=== PATIENT | male | born 1945 | race Caucasian/White ===

== ENCOUNTER → 2016-08-08 | Outpatient (REF) | payer MEDICARE, MEDICAID ==
[~2016-08-08] MED LIST: /MOM400 PO; /RANI15TA PO; ACET50TA PO; ALLO50TA PO; AMLO10TA2 PO; ASPI81TA85 PO; ATEN100T PO; BACT400T PO; BACT800T5 PO; COLA50CA3 PO; CYAN1000 IJ; CYANCRY6 PO; D32000TA PO; GLYB125TA PO; INSULANT SC; INSUNSD SC; LASI80TA PO; LEVO88TA2 PO; LISI5TAB PO; LOPE-3 PO; METF1000 PO; MUPI2OI EXT; MUPI2OI TOP; PRIL20CA PO; TERA5CA PO; ULTR50TA PO; [UNRECOGNIZED DRUG - CODE] EX
[2016-08-08 14:55] LABS: TOTAL PROTEIN 7.6 GM/DL (6.4-8.2)
[2016-08-09 10:37] LABS: ALBUMIN 3.47 GM/DL (3.29-5.55); ALBUMIN % 45.7 % (55.8-66.1); GAMMA GLOBULIN % 27.9 % (11.1-18.8)
== END | disposition home or self-care (01) ==
LOC: M LAB REF 12:39
PROVIDERS: ATTEND Internal Medicine Medical Oncology
DX: D47.2 Monoclonal gammopathy (principal)

== ENCOUNTER → 2017-02-13 | Outpatient (REF) | payer MEDICARE, MEDICAID ==
[~2017-02-13] MED LIST changes: +NYSTOI TOP
[2017-02-13 16:57] LABS: TOTAL PROTEIN 7.8 GM/DL (6.4-8.2)
[2017-02-15 11:00] LABS: ALBUMIN 3.43 GM/DL (3.29-5.55); GAMMA GLOBULIN % 29.5 % (11.1-18.8)
[2017-02-16 00:07] LABS: FREE KAPPA LIGHT CHAINS SERUM 297.2 mg/L (3.3-19.4); FREE LAMBDA LIGHT CHAINS SERUM 49.1 mg/L (5.7-26.3); KAPPA/LAMBDA RATIO SERUM 6.05 (0.26-1.65)
== END ==
LOC: M LAB REF 16:25
PROVIDERS: ATTEND Internal Medicine Medical Oncology
DX: D47.2 Monoclonal gammopathy (principal)

== ENCOUNTER → 2017-08-23 | Outpatient (REF) | payer MEDICARE, MEDICAID ==
[2017-08-23 19:05] LABS: IMMUNOGLOBULIN A 41.2 MG/DL (70-400); IMMUNOGLOBULIN G 654 MG/DL (681-1648); IMMUNOGLOBULIN M 2030 MG/DL (40-230)
== END ==
LOC: M LAB REF 16:36
DX: C88.0 Waldenstrom macroglobulinemia (principal)
CPT/HCPCS: 82784

== ENCOUNTER 2018-03-15 11:34 | Inpatient (IN) | payer MEDICARE, MEDICAID ==
[2018-03-15] MEDS: ASPIRIN 81 MG ENTERIC TAB PO (09:00)
[2018-03-15 12:47] LABS: BASO % 0.3 % (0.0-1.0); EOS # 0.4 10^3/uL (0.0-0.50); EOS % 3.7 % (0.0-3.0); HEMATOCRIT 34.7 % (42.0-52.0); HEMOGLOBIN 10.7 g/dl (13.5-17.5); IMMATURE GRANULOCYTE % 0.6 % (0-3.0); LYMPH # 1.1 10^3/uL (1.5-4.5); MEAN CORPUSCULAR HEMOGLOBIN 27.5 pg (27.0-33.0); MEAN CORPUSCULAR HGB CONC 30.8 g/dl (32.0-36.5); MEAN CORPUSCULAR VOLUME 89.2 fl (80.0-96.0); MONO # 0.9 10^3/uL (0.0-0.8); MONO % 8.3 % (0.0-5.0); NEUTROPHILS # 8.4 10^3/uL (1.8-7.7); NEUTROPHILS % 77.1 % (36.0-66.0); PLATELET COUNT, AUTOMATED 216 10^3/uL (150-450); RED BLOOD COUNT 3.89 10^6/uL (4.30-6.10); RED CELL DISTRIBUTION WIDTH 16.5 % (11.5-14.5); WHITE BLOOD COUNT 10.9 10^3/uL (4.0-10.0)
[2018-03-15 12:57] LABS: INR 1.07
[2018-03-15 13:06] LABS: ERYTHROCYTE SEDIMENTATION RATE 95 mm/hr (0-20)
[2018-03-15 13:09] LABS: ALBUMIN 2.7 GM/DL (3.2-5.2); ALBUMIN/GLOBULIN RATIO 0.55 (1.00-1.93); ALKALINE PHOSPHATASE 75 U/L (45-117); ALT/SGPT 15 U/L (12-78); ANION GAP 3 MEQ/L (8-16); AST/SGOT 13 U/L (7-37); BILIRUBIN,DIRECT < 0.1 MG/DL (0.0-0.2); BILIRUBIN,TOTAL 0.2 MG/DL (0.2-1.0); BLOOD UREA NITROGEN 19 MG/DL (7-18); C REACTIVE PROTEIN QUANTITATIV 5.71 MG/DL (0.00-0.30); CALCIUM LEVEL 8.9 MG/DL (8.8-10.2); CARBON DIOXIDE LEVEL 34 MEQ/L (21-32); CHLORIDE LEVEL 104 MEQ/L (98-107); CREATININE FOR GFR 1.41 MG/DL (0.70-1.30); GLOMERULAR FILTRATION RATE 52.7 (>42); GLUCOSE, FASTING 264 MG/DL (70-100); POTASSIUM SERUM 4.4 MEQ/L (3.5-5.1); SODIUM LEVEL 141 MEQ/L (136-145); TOTAL PROTEIN 7.6 GM/DL (6.4-8.2)
[2018-03-15] MEDS: VANCOMYCIN HCL 1,000 MG, VIAL MATE ADAPTER 1 EACH in D5W 250 ML IV ×2 (14:45→17:02)
[2018-03-15] MEDS: PIPERACILLIN/TAZOBACTAM SOD 3.375 GM in D5W MINI-BAG PLUS 50 ML IV ×2 (14:45→21:15)
[2018-03-15] MEDS ORDERED: GLUCAGON FOR INJ 1 MG VIAL (J1610) SC (16:00)
[2018-03-15] MEDS ORDERED: SENOKOT S TAB PO (16:00)
[2018-03-15] MEDS ORDERED: GLUCOSE 4 GM CHEW TABLET PO (16:00)
[2018-03-15] MEDS ORDERED: DEXTROSE 50% 50 ML SYRINGE IV (16:00)
[2018-03-15] MEDS ORDERED: POLYVINYL ALCOHOL OPHTH SOLN 15 ML(LIQUITEARS) OU (16:00)
[2018-03-15] MEDS: FUROSEMIDE 40 MG/4 ML VIAL (J1940) IV (17:02)
[2018-03-15] MEDS: FOLIC ACID 1 MG TAB PO (17:09)
[2018-03-15] MEDS: ALLOPURINOL 300 MG TAB PO (17:09)
[2018-03-15] MEDS: ATENOLOL 50 MG TAB PO (17:10)
[2018-03-15] MEDS: VITAMIN D 1,000 INTERNATIONAL UNITS TABLET PO (17:10)
[2018-03-15] MEDS: TERAZOSIN 1 MG CAP PO (17:10)
[2018-03-15] MEDS: CYANOCOBALAMIN 500 MCG TAB PO (17:10)
[2018-03-15] MEDS: LISINOPRIL 40 MG TAB PO (17:11)
[2018-03-15] MEDS: amLODIPine 5 MG TAB PO (17:11)
[2018-03-15] MEDS: HumaLOG INSULIN (NovoLOG) PER UNIT SC (17:30)
[2018-03-15] MEDS: HumuLIN N INSULIN (NovoLIN N) PER UNIT SC (18:30)
[2018-03-15] MEDS: LEVEMIR (INSULIN DETEMIR) 1 UNITS/0.01ML SC (21:00)
[2018-03-15] MEDS: NYSTATIN 100,000 UNITS/GM TOPICAL PWD 15 GM TOP (21:00)
[2018-03-15] MEDS: SPIRONOLACTONE 25 MG TAB PO (21:13)
[2018-03-15] MEDS: FAMOTIDINE 20 MG TAB PO (21:13)
[2018-03-15] MEDS: FERROUS SULFATE 325MG TAB PO (21:13)
[2018-03-15] MEDS: POTASSIUM CHLORIDE 10 MEQ SR TABLET PO (21:13)
[2018-03-16] MEDS: PIPERACILLIN/TAZOBACTAM SOD 3.375 GM in D5W MINI-BAG PLUS 50 ML IV ×3 (04:00→19:32)
[2018-03-16] MEDS: LEVOTHYROXINE 100MCG TABLET (0.1MG) PO (07:24)
[2018-03-16] MEDS: VANCOMYCIN HCL 1,000 MG, VIAL MATE ADAPTER 1 EACH in D5W 250 ML IV ×2 (07:25→17:11)
[2018-03-16 07:35] LABS: HEMATOCRIT 33.9 % (42.0-52.0); HEMOGLOBIN 10.5 g/dl (13.5-17.5); MEAN CORPUSCULAR VOLUME 90.4 fl (80.0-96.0); PLATELET COUNT, AUTOMATED 205 10^3/uL (150-450); RED BLOOD COUNT 3.75 10^6/uL (4.30-6.10); RED CELL DISTRIBUTION WIDTH 16.6 % (11.5-14.5); WHITE BLOOD COUNT 11.1 10^3/uL (4.0-10.0)
[2018-03-16 07:50] LABS: ESTIMATED AVERAGE GLUCOSE 180 MG/DL (60-110); HEMOGLOBIN A1c 7.9 %
[2018-03-16 07:57] LABS: ALBUMIN 2.6 GM/DL (3.2-5.2); ALBUMIN/GLOBULIN RATIO 0.53 (1.00-1.93); ALKALINE PHOSPHATASE 69 U/L (45-117); ALT/SGPT 18 U/L (12-78); ANION GAP 4 MEQ/L (8-16); AST/SGOT 38 U/L (7-37); BILIRUBIN,TOTAL 0.3 MG/DL (0.2-1.0); BLOOD UREA NITROGEN 18 MG/DL (7-18); C REACTIVE PROTEIN QUANTITATIV 5.45 MG/DL (0.00-0.30); CALCIUM LEVEL 8.7 MG/DL (8.8-10.2); CARBON DIOXIDE LEVEL 35 MEQ/L (21-32); CHLORIDE LEVEL 104 MEQ/L (98-107); CREATININE FOR GFR 1.49 MG/DL (0.70-1.30); FERRITIN 37 NG/ML (26-388); GLOMERULAR FILTRATION RATE 49.5 (>42); GLUCOSE, FASTING 180 MG/DL (70-100); IRON (FE) 40 UG/DL (65-175); POTASSIUM SERUM 4.7 MEQ/L (3.5-5.1); SODIUM LEVEL 143 MEQ/L (136-145); TOTAL IRON BINDING CAPACITY 286 UG/DL (250-450); TOTAL PROTEIN 7.5 GM/DL (6.4-8.2)
[2018-03-16 08:26] LABS: BEDSIDE GLUCOSE 197 MG/DL (83-110)
[2018-03-16] MEDS: HumaLOG INSULIN (NovoLOG) PER UNIT SC ×3 (08:39→18:15)
[2018-03-16 08:47] LABS: VITAMIN B12 LEVEL 598 PG/ML (247-911)
[2018-03-16 08:48] LABS: FOLATE 16.7 NG/ML (>5.4)
[2018-03-16] MEDS: VITAMIN D 1,000 INTERNATIONAL UNITS TABLET PO (09:00)
[2018-03-16] MEDS: FUROSEMIDE 40 MG/4 ML VIAL (J1940) IV (09:00)
[2018-03-16] MEDS: NYSTATIN 100,000 UNITS/GM TOPICAL PWD 15 GM TOP ×2 (09:27→20:40)
[2018-03-16] MEDS: amLODIPine 5 MG TAB PO (09:28)
[2018-03-16] MEDS: CYANOCOBALAMIN 500 MCG TAB PO (09:28)
[2018-03-16] MEDS: ENOXAPARIN 30 MG/0.3 ML SYR (J1650) SC (09:28)
[2018-03-16] MEDS: LISINOPRIL 40 MG TAB PO (09:29)
[2018-03-16] MEDS: FOLIC ACID 1 MG TAB PO (09:29)
[2018-03-16] MEDS: ATENOLOL 50 MG TAB PO (09:29)
[2018-03-16] MEDS: POTASSIUM CHLORIDE 10 MEQ SR TABLET PO ×2 (09:30→20:39)
[2018-03-16] MEDS: FERROUS SULFATE 325MG TAB PO ×2 (09:30→20:39)
[2018-03-16] MEDS: ASPIRIN 81 MG ENTERIC TAB PO (09:30)
[2018-03-16] MEDS: ALLOPURINOL 300 MG TAB PO (09:30)
[2018-03-16] MEDS: TERAZOSIN 1 MG CAP PO (09:31)
[2018-03-16] MEDS: HumuLIN N INSULIN (NovoLIN N) PER UNIT SC ×3 (10:24→18:14)
[2018-03-16 11:31] LABS: BEDSIDE GLUCOSE 213 MG/DL (83-110)
[2018-03-16 16:34] LABS: BEDSIDE GLUCOSE 119 MG/DL (83-110)
[2018-03-16] MEDS: FUROSEMIDE 100 MG/10 ML VIAL (J1940) IV (16:47)
[2018-03-16 20:35] LABS: BEDSIDE GLUCOSE 236 MG/DL (83-110)
[2018-03-16] MEDS: SPIRONOLACTONE 25 MG TAB PO (20:39)
[2018-03-16] MEDS: FAMOTIDINE 20 MG TAB PO (20:39)
[2018-03-16] MEDS: LEVEMIR (INSULIN DETEMIR) 1 UNITS/0.01ML SC (20:39)
[2018-03-17] MEDS: PIPERACILLIN/TAZOBACTAM SOD 3.375 GM in D5W MINI-BAG PLUS 50 ML IV ×4 (00:49→19:05)
[2018-03-17] MEDS: VANCOMYCIN HCL 1,000 MG, VIAL MATE ADAPTER 1 EACH in D5W 250 ML IV ×2 (04:41→17:19)
[2018-03-17 06:18] LABS: HEMATOCRIT 33.3 % (42.0-52.0); HEMOGLOBIN 10.2 g/dl (13.5-17.5); MEAN CORPUSCULAR HEMOGLOBIN 27.9 pg (27.0-33.0); MEAN CORPUSCULAR HGB CONC 30.6 g/dl (32.0-36.5); PLATELET COUNT, AUTOMATED 124 10^3/uL (150-450); RED BLOOD COUNT 3.66 10^6/uL (4.30-6.10); RED CELL DISTRIBUTION WIDTH 16.8 % (11.5-14.5); WHITE BLOOD COUNT 9.3 10^3/uL (4.0-10.0)
[2018-03-17] MEDS: LEVOTHYROXINE 100MCG TABLET (0.1MG) PO (06:28)
[2018-03-17 06:32] LABS: ALBUMIN 2.3 GM/DL (3.2-5.2); ALBUMIN/GLOBULIN RATIO 0.49 (1.00-1.93); ALKALINE PHOSPHATASE 67 U/L (45-117); ALT/SGPT 15 U/L (12-78); ANION GAP 5 MEQ/L (8-16); AST/SGOT 35 U/L (7-37); BILIRUBIN,TOTAL 0.3 MG/DL (0.2-1.0); BLOOD UREA NITROGEN 20 MG/DL (7-18); CALCIUM LEVEL 8.3 MG/DL (8.8-10.2); CARBON DIOXIDE LEVEL 33 MEQ/L (21-32); CHLORIDE LEVEL 102 MEQ/L (98-107); CREATININE FOR GFR 1.61 MG/DL (0.70-1.30); GLOMERULAR FILTRATION RATE 45.3 (>42); GLUCOSE, FASTING 141 MG/DL (70-100); MAGNESIUM LEVEL 1.9 MG/DL (1.8-2.4); POTASSIUM SERUM 4.4 MEQ/L (3.5-5.1); SODIUM LEVEL 140 MEQ/L (136-145)
[2018-03-17] MEDS: HumuLIN N INSULIN (NovoLIN N) PER UNIT SC ×3 (07:54→17:19)
[2018-03-17] MEDS: HumaLOG INSULIN (NovoLOG) PER UNIT SC ×3 (07:54→17:19)
[2018-03-17] MEDS: ALLOPURINOL 300 MG TAB PO (07:55)
[2018-03-17] MEDS: FUROSEMIDE 100 MG/10 ML VIAL (J1940) IV (07:55)
[2018-03-17] MEDS: ENOXAPARIN 30 MG/0.3 ML SYR (J1650) SC (07:55)
[2018-03-17] MEDS: FERROUS SULFATE 325MG TAB PO ×2 (07:55→20:18)
[2018-03-17] MEDS: ASPIRIN 81 MG ENTERIC TAB PO (07:55)
[2018-03-17] MEDS: TERAZOSIN 1 MG CAP PO (07:56)
[2018-03-17] MEDS: ATENOLOL 50 MG TAB PO (07:56)
[2018-03-17] MEDS: amLODIPine 5 MG TAB PO (07:56)
[2018-03-17] MEDS: CYANOCOBALAMIN 500 MCG TAB PO (07:56)
[2018-03-17] MEDS: FOLIC ACID 1 MG TAB PO (07:56)
[2018-03-17] MEDS: NYSTATIN 100,000 UNITS/GM TOPICAL PWD 15 GM TOP ×2 (07:57→20:19)
[2018-03-17] MEDS: LISINOPRIL 40 MG TAB PO (07:57)
[2018-03-17] MEDS: VITAMIN D 1,000 INTERNATIONAL UNITS TABLET PO (07:57)
[2018-03-17] MEDS: POTASSIUM CHLORIDE 10 MEQ SR TABLET PO ×2 (07:57→20:18)
[2018-03-17 12:05] LABS: BEDSIDE GLUCOSE 148 MG/DL (83-110)
[2018-03-17 16:37] LABS: BEDSIDE GLUCOSE 155 MG/DL (83-110)
[2018-03-17 16:51] LABS: VANCOMYCIN LEVEL TROUGH 17.6 UG/ML (10.0-20.0)
[2018-03-17 20:15] LABS: BEDSIDE GLUCOSE 165 MG/DL (83-110)
[2018-03-17] MEDS: FAMOTIDINE 20 MG TAB PO (20:17)
[2018-03-17] MEDS: SPIRONOLACTONE 25 MG TAB PO (20:17)
[2018-03-17] MEDS: LEVEMIR (INSULIN DETEMIR) 1 UNITS/0.01ML SC (20:19)
[2018-03-18] MEDS: PIPERACILLIN/TAZOBACTAM SOD 3.375 GM in D5W MINI-BAG PLUS 50 ML IV ×4 (00:30→18:04)
[2018-03-18] MEDS: VANCOMYCIN HCL 1,000 MG, VIAL MATE ADAPTER 1 EACH in D5W 250 ML IV (04:48)
[2018-03-18 06:05] LABS: HEMATOCRIT 32.9 % (42.0-52.0); MEAN CORPUSCULAR HEMOGLOBIN 27.5 pg (27.0-33.0); MEAN CORPUSCULAR HGB CONC 30.4 g/dl (32.0-36.5); MEAN CORPUSCULAR VOLUME 90.6 fl (80.0-96.0); PLATELET COUNT, AUTOMATED 212 10^3/uL (150-450); RED BLOOD COUNT 3.63 10^6/uL (4.30-6.10); RED CELL DISTRIBUTION WIDTH 16.3 % (11.5-14.5); WHITE BLOOD COUNT 10.1 10^3/uL (4.0-10.0)
[2018-03-18] MEDS: LEVOTHYROXINE 100MCG TABLET (0.1MG) PO (06:24)
[2018-03-18 06:28] LABS: ALBUMIN 2.3 GM/DL (3.2-5.2); ALBUMIN/GLOBULIN RATIO 0.51 (1.00-1.93); ALKALINE PHOSPHATASE 61 U/L (45-117); ALT/SGPT 15 U/L (12-78); ANION GAP 3 MEQ/L (8-16); AST/SGOT 25 U/L (7-37); BILIRUBIN,TOTAL 0.3 MG/DL (0.2-1.0); BLOOD UREA NITROGEN 24 MG/DL (7-18); CALCIUM LEVEL 8.3 MG/DL (8.8-10.2); CARBON DIOXIDE LEVEL 36 MEQ/L (21-32); CHLORIDE LEVEL 100 MEQ/L (98-107); CREATININE FOR GFR 1.79 MG/DL (0.70-1.30); GLOMERULAR FILTRATION RATE 40.1 (>42); GLUCOSE, FASTING 103 MG/DL (70-100); MAGNESIUM LEVEL 1.7 MG/DL (1.8-2.4); POTASSIUM SERUM 4.5 MEQ/L (3.5-5.1); SODIUM LEVEL 139 MEQ/L (136-145); TOTAL PROTEIN 6.8 GM/DL (6.4-8.2)
[2018-03-18] MEDS: HumuLIN N INSULIN (NovoLIN N) PER UNIT SC ×3 (07:28→18:04)
[2018-03-18] MEDS: HumaLOG INSULIN (NovoLOG) PER UNIT SC ×3 (07:28→18:04)
[2018-03-18] MEDS: ENOXAPARIN 30 MG/0.3 ML SYR (J1650) SC (07:40)
[2018-03-18] MEDS: FERROUS SULFATE 325MG TAB PO ×2 (07:41→20:36)
[2018-03-18] MEDS: FOLIC ACID 1 MG TAB PO (07:41)
[2018-03-18] MEDS: POTASSIUM CHLORIDE 10 MEQ SR TABLET PO ×2 (07:41→20:36)
[2018-03-18] MEDS: LISINOPRIL 40 MG TAB PO (07:42)
[2018-03-18] MEDS: VITAMIN D 1,000 INTERNATIONAL UNITS TABLET PO (07:42)
[2018-03-18] MEDS: ASPIRIN 81 MG ENTERIC TAB PO (07:42)
[2018-03-18] MEDS: ALLOPURINOL 300 MG TAB PO (07:42)
[2018-03-18] MEDS: CYANOCOBALAMIN 500 MCG TAB PO (07:42)
[2018-03-18] MEDS: ATENOLOL 50 MG TAB PO (07:43)
[2018-03-18] MEDS: amLODIPine 5 MG TAB PO (07:43)
[2018-03-18] MEDS: TERAZOSIN 1 MG CAP PO (07:43)
[2018-03-18] MEDS: NYSTATIN 100,000 UNITS/GM TOPICAL PWD 15 GM TOP ×2 (07:44→20:37)
[2018-03-18] MEDS: FUROSEMIDE 20 MG TAB PO (07:44)
[2018-03-18] MEDS: MAG SULF 1GM/100ML (MAG RUN) 1 GM in APPROPRIATE DILUENT 1 EA IV ×2 (08:56→10:23)
[2018-03-18 11:35] LABS: BEDSIDE GLUCOSE 137 MG/DL (83-110)
[2018-03-18 16:41] LABS: BEDSIDE GLUCOSE 179 MG/DL (83-110)
[2018-03-18 20:30] LABS: BEDSIDE GLUCOSE 195 MG/DL (83-110)
[2018-03-18] MEDS: FAMOTIDINE 20 MG TAB PO (20:36)
[2018-03-18] MEDS: LEVEMIR (INSULIN DETEMIR) 1 UNITS/0.01ML SC (20:37)
[2018-03-19] MEDS: PIPERACILLIN/TAZOBACTAM SOD 3.375 GM in D5W MINI-BAG PLUS 50 ML IV ×4 (00:34→18:46)
[2018-03-19 05:56] LABS: HEMATOCRIT 32.9 % (42.0-52.0); HEMOGLOBIN 10.1 g/dl (13.5-17.5); MEAN CORPUSCULAR HEMOGLOBIN 27.6 pg (27.0-33.0); MEAN CORPUSCULAR HGB CONC 30.7 g/dl (32.0-36.5); MEAN CORPUSCULAR VOLUME 89.9 fl (80.0-96.0); PLATELET COUNT, AUTOMATED 217 10^3/uL (150-450); RED BLOOD COUNT 3.66 10^6/uL (4.30-6.10); RED CELL DISTRIBUTION WIDTH 16.3 % (11.5-14.5); WHITE BLOOD COUNT 11.2 10^3/uL (4.0-10.0)
[2018-03-19] MEDS: LEVOTHYROXINE 100MCG TABLET (0.1MG) PO (06:06)
[2018-03-19 06:23] LABS: ALBUMIN 2.4 GM/DL (3.2-5.2); ALKALINE PHOSPHATASE 67 U/L (45-117); ALT/SGPT 16 U/L (12-78); ANION GAP 6 MEQ/L (8-16); AST/SGOT 20 U/L (7-37); BILIRUBIN,TOTAL 0.3 MG/DL (0.2-1.0); BLOOD UREA NITROGEN 27 MG/DL (7-18); C REACTIVE PROTEIN QUANTITATIV 2.63 MG/DL (0.00-0.30); CALCIUM LEVEL 8.5 MG/DL (8.8-10.2); CARBON DIOXIDE LEVEL 35 MEQ/L (21-32); CHLORIDE LEVEL 100 MEQ/L (98-107); CREATININE FOR GFR 1.93 MG/DL (0.70-1.30); GLOMERULAR FILTRATION RATE 36.7 (>42); GLUCOSE, FASTING 116 MG/DL (70-100); MAGNESIUM LEVEL 2.4 MG/DL (1.8-2.4); POTASSIUM SERUM 4.5 MEQ/L (3.5-5.1); SODIUM LEVEL 141 MEQ/L (136-145); TOTAL PROTEIN 7.2 GM/DL (6.4-8.2)
[2018-03-19] MEDS: FOLIC ACID 1 MG TAB PO (08:47)
[2018-03-19] MEDS: POTASSIUM CHLORIDE 10 MEQ SR TABLET PO ×2 (08:47→20:42)
[2018-03-19] MEDS: ALLOPURINOL 300 MG TAB PO (08:47)
[2018-03-19] MEDS: VITAMIN D 1,000 INTERNATIONAL UNITS TABLET PO (08:47)
[2018-03-19] MEDS: ASPIRIN 81 MG ENTERIC TAB PO (08:47)
[2018-03-19] MEDS: FERROUS SULFATE 325MG TAB PO ×2 (08:47→20:42)
[2018-03-19] MEDS: CYANOCOBALAMIN 500 MCG TAB PO (08:47)
[2018-03-19] MEDS: LISINOPRIL 40 MG TAB PO (08:48)
[2018-03-19] MEDS: TERAZOSIN 1 MG CAP PO (08:48)
[2018-03-19] MEDS: amLODIPine 5 MG TAB PO (08:48)
[2018-03-19] MEDS: ATENOLOL 50 MG TAB PO (08:48)
[2018-03-19] MEDS: HumaLOG INSULIN (NovoLOG) PER UNIT SC ×3 (08:49→18:46)
[2018-03-19] MEDS: HumuLIN N INSULIN (NovoLIN N) PER UNIT SC ×3 (08:49→18:46)
[2018-03-19] MEDS: ENOXAPARIN 30 MG/0.3 ML SYR (J1650) SC (08:50)
[2018-03-19] MEDS: NYSTATIN 100,000 UNITS/GM TOPICAL PWD 15 GM TOP ×2 (08:50→20:44)
[2018-03-19 11:58] LABS: BEDSIDE GLUCOSE 201 MG/DL (83-110)
[2018-03-19 16:32] LABS: BEDSIDE GLUCOSE 163 MG/DL (83-110)
[2018-03-19 20:21] LABS: BEDSIDE GLUCOSE 131 MG/DL (83-110)
[2018-03-19] MEDS: FAMOTIDINE 20 MG TAB PO (20:42)
[2018-03-19] MEDS: LEVEMIR (INSULIN DETEMIR) 1 UNITS/0.01ML SC (20:43)
[2018-03-20] MEDS: PIPERACILLIN/TAZOBACTAM SOD 3.375 GM in D5W MINI-BAG PLUS 50 ML IV ×3 (01:00→13:00)
[2018-03-20] MEDS: LEVOTHYROXINE 100MCG TABLET (0.1MG) PO (05:58)
[2018-03-20 06:01] LABS: HEMOGLOBIN 9.8 g/dl (13.5-17.5); MEAN CORPUSCULAR HEMOGLOBIN 27.2 pg (27.0-33.0); MEAN CORPUSCULAR HGB CONC 30.6 g/dl (32.0-36.5); MEAN CORPUSCULAR VOLUME 88.9 fl (80.0-96.0); PLATELET COUNT, AUTOMATED 203 10^3/uL (150-450); RED CELL DISTRIBUTION WIDTH 16.2 % (11.5-14.5); WHITE BLOOD COUNT 8.8 10^3/uL (4.0-10.0)
[2018-03-20 06:18] LABS: ALBUMIN 2.4 GM/DL (3.2-5.2); ALBUMIN/GLOBULIN RATIO 0.52 (1.00-1.93); ALKALINE PHOSPHATASE 73 U/L (45-117); ALT/SGPT 19 U/L (12-78); ANION GAP 5 MEQ/L (8-16); AST/SGOT 22 U/L (7-37); BILIRUBIN,TOTAL 0.3 MG/DL (0.2-1.0); BLOOD UREA NITROGEN 25 MG/DL (7-18); C REACTIVE PROTEIN QUANTITATIV 2.95 MG/DL (0.00-0.30); CALCIUM LEVEL 8.4 MG/DL (8.8-10.2); CARBON DIOXIDE LEVEL 36 MEQ/L (21-32); CHLORIDE LEVEL 102 MEQ/L (98-107); CREATININE FOR GFR 1.59 MG/DL (0.70-1.30); GLOMERULAR FILTRATION RATE 45.9 (>42); GLUCOSE, FASTING 98 MG/DL (70-100); MAGNESIUM LEVEL 2.3 MG/DL (1.8-2.4); POTASSIUM SERUM 4.6 MEQ/L (3.5-5.1); SODIUM LEVEL 143 MEQ/L (136-145)
[2018-03-20] MEDS: HumaLOG INSULIN (NovoLOG) PER UNIT SC ×3 (06:55→17:38)
[2018-03-20] MEDS: amLODIPine 5 MG TAB PO (08:03)
[2018-03-20] MEDS: POTASSIUM CHLORIDE 10 MEQ SR TABLET PO ×2 (08:03→22:27)
[2018-03-20] MEDS: VITAMIN D 1,000 INTERNATIONAL UNITS TABLET PO (08:03)
[2018-03-20] MEDS: ENOXAPARIN 30 MG/0.3 ML SYR (J1650) SC (08:03)
[2018-03-20] MEDS: CYANOCOBALAMIN 500 MCG TAB PO (08:03)
[2018-03-20] MEDS: HumuLIN N INSULIN (NovoLIN N) PER UNIT SC ×3 (08:03→17:38)
[2018-03-20] MEDS: FERROUS SULFATE 325MG TAB PO ×2 (08:03→22:27)
[2018-03-20] MEDS: ATENOLOL 50 MG TAB PO (08:04)
[2018-03-20] MEDS: ALLOPURINOL 300 MG TAB PO (08:04)
[2018-03-20] MEDS: TERAZOSIN 1 MG CAP PO (08:04)
[2018-03-20] MEDS: ASPIRIN 81 MG ENTERIC TAB PO (08:04)
[2018-03-20] MEDS: FOLIC ACID 1 MG TAB PO (08:04)
[2018-03-20] MEDS: LISINOPRIL 40 MG TAB PO (08:04)
[2018-03-20] MEDS: NYSTATIN 100,000 UNITS/GM TOPICAL PWD 15 GM TOP ×2 (08:05→22:29)
[2018-03-20] MEDS: FUROSEMIDE 20 MG TAB PO (09:34)
[2018-03-20 12:15] LABS: BEDSIDE GLUCOSE 292 MG/DL (83-110)
[2018-03-20] MEDS: DOXYCYCLINE HYCLATE 100 MG TAB PO ×2 (13:19→22:28)
[2018-03-20 16:53] LABS: BEDSIDE GLUCOSE 211 MG/DL (83-110)
[2018-03-20] MEDS: SPIRONOLACTONE 25 MG TAB PO (22:27)
[2018-03-20] MEDS: LEVEMIR (INSULIN DETEMIR) 1 UNITS/0.01ML SC (22:28)
[2018-03-20] MEDS: FAMOTIDINE 20 MG TAB PO (22:28)
[2018-03-20] MEDS: ACETAMINOPHEN 500 MG TAB PO (22:29)
[2018-03-21] MEDS: LEVOTHYROXINE 100MCG TABLET (0.1MG) PO (06:05)
[2018-03-21 06:34] LABS: HEMATOCRIT 31.5 % (42.0-52.0); HEMOGLOBIN 9.8 g/dl (13.5-17.5); MEAN CORPUSCULAR HGB CONC 31.1 g/dl (32.0-36.5); PLATELET COUNT, AUTOMATED 202 10^3/uL (150-450); RED CELL DISTRIBUTION WIDTH 16.5 % (11.5-14.5); WHITE BLOOD COUNT 8.3 10^3/uL (4.0-10.0)
[2018-03-21 07:02] LABS: ALBUMIN 2.4 GM/DL (3.2-5.2); ALBUMIN/GLOBULIN RATIO 0.52 (1.00-1.93); ALKALINE PHOSPHATASE 74 U/L (45-117); ALT/SGPT 23 U/L (12-78); ANION GAP 5 MEQ/L (8-16); AST/SGOT 21 U/L (7-37); BILIRUBIN,TOTAL 0.3 MG/DL (0.2-1.0); BLOOD UREA NITROGEN 25 MG/DL (7-18); C REACTIVE PROTEIN QUANTITATIV 3.15 MG/DL (0.00-0.30); CALCIUM LEVEL 8.7 MG/DL (8.8-10.2); CARBON DIOXIDE LEVEL 36 MEQ/L (21-32); CHLORIDE LEVEL 101 MEQ/L (98-107); CREATININE FOR GFR 1.42 MG/DL (0.70-1.30); GLOMERULAR FILTRATION RATE 52.3 (>42); GLUCOSE, FASTING 76 MG/DL (70-100); MAGNESIUM LEVEL 2.2 MG/DL (1.8-2.4); POTASSIUM SERUM 4.5 MEQ/L (3.5-5.1); SODIUM LEVEL 142 MEQ/L (136-145)
[2018-03-21] MEDS: HumaLOG INSULIN (NovoLOG) PER UNIT SC ×3 (07:30→18:17)
[2018-03-21] MEDS: HumuLIN N INSULIN (NovoLIN N) PER UNIT SC ×3 (07:30→18:18)
[2018-03-21] MEDS: ENOXAPARIN 30 MG/0.3 ML SYR (J1650) SC (10:36)
[2018-03-21] MEDS: FOLIC ACID 1 MG TAB PO (10:37)
[2018-03-21] MEDS: ASPIRIN 81 MG ENTERIC TAB PO (10:37)
[2018-03-21] MEDS: ALLOPURINOL 300 MG TAB PO (10:37)
[2018-03-21] MEDS: DOXYCYCLINE HYCLATE 100 MG TAB PO ×2 (10:37→20:51)
[2018-03-21] MEDS: FUROSEMIDE 20 MG TAB PO (10:37)
[2018-03-21] MEDS: VITAMIN D 1,000 INTERNATIONAL UNITS TABLET PO (10:37)
[2018-03-21] MEDS: POTASSIUM CHLORIDE 10 MEQ SR TABLET PO ×2 (10:38→20:51)
[2018-03-21] MEDS: FERROUS SULFATE 325MG TAB PO ×2 (10:38→20:51)
[2018-03-21] MEDS: LISINOPRIL 40 MG TAB PO (10:38)
[2018-03-21] MEDS: CYANOCOBALAMIN 500 MCG TAB PO (10:38)
[2018-03-21] MEDS: amLODIPine 10 MG TAB PO (10:42)
[2018-03-21] MEDS: NYSTATIN 100,000 UNITS/GM TOPICAL PWD 15 GM TOP ×2 (10:43→20:52)
[2018-03-21] MEDS: ATENOLOL 50 MG TAB PO (10:43)
[2018-03-21] MEDS: TERAZOSIN 1 MG CAP PO (10:46)
[2018-03-21 11:58] LABS: FREE T4 0.88 NG/DL (0.76-1.46)
[2018-03-21 12:11] LABS: BEDSIDE GLUCOSE 151 MG/DL (83-110)
[2018-03-21 16:32] LABS: BEDSIDE GLUCOSE 233 MG/DL (83-110)
[2018-03-21 16:53] LABS: BEDSIDE GLUCOSE 256 MG/DL (83-110)
[2018-03-21 20:44] LABS: BEDSIDE GLUCOSE 290 MG/DL (83-110)
[2018-03-21] MEDS: SPIRONOLACTONE 25 MG TAB PO (20:51)
[2018-03-21] MEDS: LEVEMIR (INSULIN DETEMIR) 1 UNITS/0.01ML SC (20:51)
[2018-03-21] MEDS: FAMOTIDINE 20 MG TAB PO (20:51)
[2018-03-21] MEDS: traMADol 50 MG TAB PO (20:52)
[2018-03-22] MEDS: LEVOTHYROXINE 100MCG TABLET (0.1MG) PO (05:37)
[2018-03-22 06:27] LABS: HEMATOCRIT 31.5 % (42.0-52.0); HEMOGLOBIN 9.7 g/dl (13.5-17.5); MEAN CORPUSCULAR HEMOGLOBIN 27.4 pg (27.0-33.0); MEAN CORPUSCULAR HGB CONC 30.8 g/dl (32.0-36.5); PLATELET COUNT, AUTOMATED 217 10^3/uL (150-450); RED BLOOD COUNT 3.54 10^6/uL (4.30-6.10); RED CELL DISTRIBUTION WIDTH 16.4 % (11.5-14.5); WHITE BLOOD COUNT 8.3 10^3/uL (4.0-10.0)
[2018-03-22 06:41] LABS: ALBUMIN 2.5 GM/DL (3.2-5.2); ALBUMIN/GLOBULIN RATIO 0.52 (1.00-1.93); ALKALINE PHOSPHATASE 77 U/L (45-117); ALT/SGPT 24 U/L (12-78); ANION GAP 3 MEQ/L (8-16); AST/SGOT 16 U/L (7-37); BILIRUBIN,TOTAL 0.2 MG/DL (0.2-1.0); BLOOD UREA NITROGEN 22 MG/DL (7-18); CALCIUM LEVEL 8.8 MG/DL (8.8-10.2); CARBON DIOXIDE LEVEL 40 MEQ/L (21-32); CHLORIDE LEVEL 103 MEQ/L (98-107); CREATININE FOR GFR 1.41 MG/DL (0.70-1.30); GLOMERULAR FILTRATION RATE 52.7 (>42); GLUCOSE, FASTING 88 MG/DL (70-100); MAGNESIUM LEVEL 2.1 MG/DL (1.8-2.4); POTASSIUM SERUM 4.4 MEQ/L (3.5-5.1); SODIUM LEVEL 146 MEQ/L (136-145); TOTAL PROTEIN 7.3 GM/DL (6.4-8.2)
[2018-03-22 06:46] LABS: C REACTIVE PROTEIN QUANTITATIV 2.98 MG/DL (0.00-0.30)
[2018-03-22] MEDS: HumaLOG INSULIN (NovoLOG) PER UNIT SC ×3 (07:49→17:27)
[2018-03-22] MEDS: HumuLIN N INSULIN (NovoLIN N) PER UNIT SC ×3 (07:59→17:26)
[2018-03-22] MEDS: LISINOPRIL 40 MG TAB PO (08:46)
[2018-03-22] MEDS: amLODIPine 10 MG TAB PO (08:46)
[2018-03-22] MEDS: ALLOPURINOL 300 MG TAB PO (08:46)
[2018-03-22] MEDS: FUROSEMIDE 20 MG TAB PO (08:46)
[2018-03-22] MEDS: ENOXAPARIN 30 MG/0.3 ML SYR (J1650) SC (08:46)
[2018-03-22] MEDS: ASPIRIN 81 MG ENTERIC TAB PO (08:46)
[2018-03-22] MEDS: ATENOLOL 50 MG TAB PO (08:47)
[2018-03-22] MEDS: FERROUS SULFATE 325MG TAB PO ×2 (08:47→20:48)
[2018-03-22] MEDS: CYANOCOBALAMIN 500 MCG TAB PO (08:47)
[2018-03-22] MEDS: VITAMIN D 1,000 INTERNATIONAL UNITS TABLET PO (08:47)
[2018-03-22] MEDS: TERAZOSIN 1 MG CAP PO (08:47)
[2018-03-22] MEDS: FOLIC ACID 1 MG TAB PO (08:48)
[2018-03-22] MEDS: NYSTATIN 100,000 UNITS/GM TOPICAL PWD 15 GM TOP ×2 (08:48→20:51)
[2018-03-22] MEDS: DOXYCYCLINE HYCLATE 100 MG TAB PO ×2 (08:48→20:49)
[2018-03-22] MEDS: POTASSIUM CHLORIDE 10 MEQ SR TABLET PO ×2 (08:48→20:49)
[2018-03-22 11:57] LABS: BEDSIDE GLUCOSE 149 MG/DL (83-110)
[2018-03-22 17:04] LABS: BEDSIDE GLUCOSE 224 MG/DL (83-110)
[2018-03-22 20:39] LABS: BEDSIDE GLUCOSE 279 MG/DL (83-110)
[2018-03-22] MEDS: FAMOTIDINE 20 MG TAB PO (20:49)
[2018-03-22] MEDS: SPIRONOLACTONE 25 MG TAB PO (20:49)
[2018-03-22] MEDS: LEVEMIR (INSULIN DETEMIR) 1 UNITS/0.01ML SC (20:50)
[2018-03-23] MEDS: LEVOTHYROXINE 100MCG TABLET (0.1MG) PO (06:09)
[2018-03-23 06:36] LABS: HEMATOCRIT 32.2 % (42.0-52.0); MEAN CORPUSCULAR HEMOGLOBIN 27.6 pg (27.0-33.0); MEAN CORPUSCULAR HGB CONC 31.1 g/dl (32.0-36.5); PLATELET COUNT, AUTOMATED 216 10^3/uL (150-450); RED BLOOD COUNT 3.62 10^6/uL (4.30-6.10); RED CELL DISTRIBUTION WIDTH 16.6 % (11.5-14.5); WHITE BLOOD COUNT 8.2 10^3/uL (4.0-10.0)
[2018-03-23 06:48] LABS: ANION GAP 0 MEQ/L (8-16); BLOOD UREA NITROGEN 25 MG/DL (7-18); C REACTIVE PROTEIN QUANTITATIV 2.57 MG/DL (0.00-0.30); CALCIUM LEVEL 8.7 MG/DL (8.8-10.2); CARBON DIOXIDE LEVEL 38 MEQ/L (21-32); CHLORIDE LEVEL 103 MEQ/L (98-107); CREATININE FOR GFR 1.43 MG/DL (0.70-1.30); GLOMERULAR FILTRATION RATE 51.9 (>42); GLUCOSE, FASTING 107 MG/DL (70-100); MAGNESIUM LEVEL 1.8 MG/DL (1.8-2.4); POTASSIUM SERUM 4.6 MEQ/L (3.5-5.1); SODIUM LEVEL 141 MEQ/L (136-145)
[2018-03-23] MEDS: HumaLOG INSULIN (NovoLOG) PER UNIT SC ×3 (07:22→17:30)
[2018-03-23] MEDS: DOXYCYCLINE HYCLATE 100 MG TAB PO ×2 (07:26→20:23)
[2018-03-23] MEDS: VITAMIN D 1,000 INTERNATIONAL UNITS TABLET PO (07:26)
[2018-03-23] MEDS: ASPIRIN 81 MG ENTERIC TAB PO (07:26)
[2018-03-23] MEDS: ENOXAPARIN 30 MG/0.3 ML SYR (J1650) SC (07:26)
[2018-03-23] MEDS: TERAZOSIN 1 MG CAP PO (07:26)
[2018-03-23] MEDS: FERROUS SULFATE 325MG TAB PO ×2 (07:27→20:22)
[2018-03-23] MEDS: ALLOPURINOL 300 MG TAB PO (07:27)
[2018-03-23] MEDS: POTASSIUM CHLORIDE 10 MEQ SR TABLET PO ×2 (07:27→20:23)
[2018-03-23] MEDS: amLODIPine 10 MG TAB PO (07:27)
[2018-03-23] MEDS: FUROSEMIDE 20 MG TAB PO (07:27)
[2018-03-23] MEDS: LISINOPRIL 40 MG TAB PO (07:27)
[2018-03-23] MEDS: ATENOLOL 50 MG TAB PO (07:28)
[2018-03-23] MEDS: NYSTATIN 100,000 UNITS/GM TOPICAL PWD 15 GM TOP ×2 (07:28→20:23)
[2018-03-23] MEDS: FOLIC ACID 1 MG TAB PO (07:28)
[2018-03-23] MEDS: HumuLIN N INSULIN (NovoLIN N) PER UNIT SC ×3 (07:28→17:30)
[2018-03-23] MEDS: CYANOCOBALAMIN 500 MCG TAB PO (07:28)
[2018-03-23 11:55] LABS: BEDSIDE GLUCOSE 135 MG/DL (83-110)
[2018-03-23 17:09] LABS: BEDSIDE GLUCOSE 183 MG/DL (83-110)
[2018-03-23 20:04] LABS: BEDSIDE GLUCOSE 234 MG/DL (83-110)
[2018-03-23] MEDS: SPIRONOLACTONE 25 MG TAB PO (20:22)
[2018-03-23] MEDS: FAMOTIDINE 20 MG TAB PO (20:23)
[2018-03-23] MEDS: LEVEMIR (INSULIN DETEMIR) 1 UNITS/0.01ML SC (20:23)
[2018-03-24 06:14] LABS: HEMATOCRIT 32.7 % (42.0-52.0); HEMOGLOBIN 9.9 g/dl (13.5-17.5); MEAN CORPUSCULAR HGB CONC 30.3 g/dl (32.0-36.5); MEAN CORPUSCULAR VOLUME 92.6 fl (80.0-96.0); PLATELET COUNT, AUTOMATED 209 10^3/uL (150-450); RED BLOOD COUNT 3.53 10^6/uL (4.30-6.10); RED CELL DISTRIBUTION WIDTH 16.7 % (11.5-14.5); WHITE BLOOD COUNT 8.9 10^3/uL (4.0-10.0)
[2018-03-24 06:33] LABS: ANION GAP 3 MEQ/L (8-16); BLOOD UREA NITROGEN 28 MG/DL (7-18); C REACTIVE PROTEIN QUANTITATIV 2.41 MG/DL (0.00-0.30); CALCIUM LEVEL 8.3 MG/DL (8.8-10.2); CARBON DIOXIDE LEVEL 36 MEQ/L (21-32); CHLORIDE LEVEL 103 MEQ/L (98-107); CREATININE FOR GFR 1.44 MG/DL (0.70-1.30); GLOMERULAR FILTRATION RATE 51.5 (>42); GLUCOSE, FASTING 129 MG/DL (70-100); MAGNESIUM LEVEL 2.1 MG/DL (1.8-2.4); SODIUM LEVEL 142 MEQ/L (136-145)
[2018-03-24] MEDS: LEVOTHYROXINE 100MCG TABLET (0.1MG) PO (06:36)
[2018-03-24] MEDS: ATENOLOL 50 MG TAB PO (07:18)
[2018-03-24] MEDS: ALLOPURINOL 300 MG TAB PO (07:18)
[2018-03-24] MEDS: HumaLOG INSULIN (NovoLOG) PER UNIT SC ×3 (07:18→17:26)
[2018-03-24] MEDS: FUROSEMIDE 20 MG TAB PO (07:19)
[2018-03-24] MEDS: amLODIPine 10 MG TAB PO (07:19)
[2018-03-24] MEDS: TERAZOSIN 1 MG CAP PO (07:19)
[2018-03-24] MEDS: ASPIRIN 81 MG ENTERIC TAB PO (07:19)
[2018-03-24] MEDS: CYANOCOBALAMIN 500 MCG TAB PO (07:19)
[2018-03-24] MEDS: FERROUS SULFATE 325MG TAB PO ×2 (07:19→21:47)
[2018-03-24] MEDS: LISINOPRIL 40 MG TAB PO (07:19)
[2018-03-24] MEDS: ENOXAPARIN 30 MG/0.3 ML SYR (J1650) SC (07:20)
[2018-03-24] MEDS: FOLIC ACID 1 MG TAB PO (07:20)
[2018-03-24] MEDS: POTASSIUM CHLORIDE 10 MEQ SR TABLET PO ×2 (07:20→21:48)
[2018-03-24] MEDS: DOXYCYCLINE HYCLATE 100 MG TAB PO ×2 (07:20→21:48)
[2018-03-24] MEDS: VITAMIN D 1,000 INTERNATIONAL UNITS TABLET PO (07:20)
[2018-03-24] MEDS: NYSTATIN 100,000 UNITS/GM TOPICAL PWD 15 GM TOP ×2 (07:21→21:48)
[2018-03-24] MEDS: HumuLIN N INSULIN (NovoLIN N) PER UNIT SC ×3 (07:23→18:06)
[2018-03-24 11:53] LABS: BEDSIDE GLUCOSE 217 MG/DL (83-110)
[2018-03-24 17:23] LABS: BEDSIDE GLUCOSE 96 MG/DL (83-110)
[2018-03-24 20:46] LABS: BEDSIDE GLUCOSE 204 MG/DL (83-110)
[2018-03-24] MEDS: SPIRONOLACTONE 25 MG TAB PO (21:47)
[2018-03-24] MEDS: FAMOTIDINE 20 MG TAB PO (21:48)
[2018-03-24] MEDS: LEVEMIR (INSULIN DETEMIR) 1 UNITS/0.01ML SC (21:48)
[2018-03-25] MEDS: LEVOTHYROXINE 100MCG TABLET (0.1MG) PO (05:31)
[2018-03-25 05:56] LABS: HEMATOCRIT 32.6 % (42.0-52.0); HEMOGLOBIN 9.7 g/dl (13.5-17.5); MEAN CORPUSCULAR HEMOGLOBIN 27.5 pg (27.0-33.0); MEAN CORPUSCULAR HGB CONC 29.8 g/dl (32.0-36.5); MEAN CORPUSCULAR VOLUME 92.4 fl (80.0-96.0); PLATELET COUNT, AUTOMATED 205 10^3/uL (150-450); RED BLOOD COUNT 3.53 10^6/uL (4.30-6.10); RED CELL DISTRIBUTION WIDTH 16.6 % (11.5-14.5); WHITE BLOOD COUNT 8.9 10^3/uL (4.0-10.0)
[2018-03-25 06:14] LABS: ANION GAP 3 MEQ/L (8-16); BLOOD UREA NITROGEN 30 MG/DL (7-18); CALCIUM LEVEL 8.4 MG/DL (8.8-10.2); CARBON DIOXIDE LEVEL 36 MEQ/L (21-32); CHLORIDE LEVEL 104 MEQ/L (98-107); CREATININE FOR GFR 1.52 MG/DL (0.70-1.30); GLOMERULAR FILTRATION RATE 48.4 (>42); GLUCOSE, FASTING 59 MG/DL (70-100); MAGNESIUM LEVEL 2.1 MG/DL (1.8-2.4); POTASSIUM SERUM 4.7 MEQ/L (3.5-5.1); SODIUM LEVEL 143 MEQ/L (136-145)
[2018-03-25] MEDS: HumaLOG INSULIN (NovoLOG) PER UNIT SC (07:10)
[2018-03-25] MEDS: HumuLIN N INSULIN (NovoLIN N) PER UNIT SC (07:13)
[2018-03-25] MEDS: ENOXAPARIN 30 MG/0.3 ML SYR (J1650) SC (07:41)
[2018-03-25] MEDS: VITAMIN D 1,000 INTERNATIONAL UNITS TABLET PO (07:41)
[2018-03-25] MEDS: CYANOCOBALAMIN 500 MCG TAB PO (07:42)
[2018-03-25] MEDS: LISINOPRIL 40 MG TAB PO (07:42)
[2018-03-25] MEDS: DOXYCYCLINE HYCLATE 100 MG TAB PO (07:42)
[2018-03-25] MEDS: ATENOLOL 50 MG TAB PO (07:42)
[2018-03-25] MEDS: POTASSIUM CHLORIDE 10 MEQ SR TABLET PO (07:42)
[2018-03-25] MEDS: TERAZOSIN 1 MG CAP PO (07:42)
[2018-03-25] MEDS: FOLIC ACID 1 MG TAB PO (07:42)
[2018-03-25] MEDS: ASPIRIN 81 MG ENTERIC TAB PO (07:43)
[2018-03-25] MEDS: FERROUS SULFATE 325MG TAB PO (07:43)
[2018-03-25] MEDS: NYSTATIN 100,000 UNITS/GM TOPICAL PWD 15 GM TOP (07:43)
[2018-03-25] MEDS: FUROSEMIDE 20 MG TAB PO (07:43)
[2018-03-25] MEDS: ALLOPURINOL 300 MG TAB PO (07:43)
[2018-03-25] MEDS: amLODIPine 10 MG TAB PO (07:43)
== END 2018-03-25 10:45 | disposition home health service (06) | DRG 603 ==
LOC: M MSPAV 03-16 11:11 → M ED 11:34 → M ED INP 15:04
DX: L03.115 Cellulitis of right lower limb (principal); I50.32 Chronic diastolic (congestive) heart failure; Z68.43 Body mass index [BMI] 50.0-59.9, adult; L97.921 Non-pressure chronic ulcer of unspecified part of left lower leg limited to breakdown of skin; L97.911 Non-pressure chronic ulcer of unspecified part of right lower leg limited to breakdown of skin; I13.0 Hypertensive heart and chronic kidney disease with heart failure and stage 1 through stage 4 chronic kidney disease, or unspecified chronic kidney disease; E11.22 Type 2 diabetes mellitus with diabetic chronic kidney disease; E03.9 Hypothyroidism, unspecified; K21.9 Gastro-esophageal reflux disease without esophagitis; M10.9 Gout, unspecified; L40.9 Psoriasis, unspecified; E66.01 Morbid (severe) obesity due to excess calories; G47.33 Obstructive sleep apnea (adult) (pediatric); B35.6 Tinea cruris; G89.29 Other chronic pain; R01.1 Cardiac murmur, unspecified; I87.2 Venous insufficiency (chronic) (peripheral); R26.81 Unsteadiness on feet; D64.9 Anemia, unspecified; E11.51 Type 2 diabetes mellitus with diabetic peripheral angiopathy without gangrene; I50.812 Chronic right heart failure; N18.3 Chronic kidney disease, stage 3 (moderate); I89.0 Lymphedema, not elsewhere classified; Z87.442 Personal history of urinary calculi; Z85.038 Personal history of other malignant neoplasm of large intestine; Z90.49 Acquired absence of other specified parts of digestive tract; Z79.82 Long term (current) use of aspirin; Z79.4 Long term (current) use of insulin; Z79.899 Other long term (current) drug therapy; Z88.5 Allergy status to narcotic agent; I27.20 Pulmonary hypertension, unspecified

== ENCOUNTER 2018-04-17 08:55 | Emergency (ER) | payer MEDICARE, MEDICAID ==
[2018-04-17] MEDS: ADACEL/BOOSTRIX VACCINE (DIPHTH/PERTUSS/ACELL/TETANUS)0.5ML SYR (90715) IM (09:41)
== END 2018-04-17 09:53 | disposition home or self-care (01) ==
LOC: M ED 08:55
DX: S51.802A Unspecified open wound of left forearm, initial encounter (principal); W22.8XXA Striking against or struck by other objects, initial encounter; Y92.099 Unspecified place in other non-institutional residence as the place of occurrence of the external cause; Y93.9 Activity, unspecified; Y99.9 Unspecified external cause status; Z85.038 Personal history of other malignant neoplasm of large intestine; Z87.442 Personal history of urinary calculi; I10 Essential (primary) hypertension; G47.30 Sleep apnea, unspecified; Z90.49 Acquired absence of other specified parts of digestive tract; E11.9 Type 2 diabetes mellitus without complications; E03.9 Hypothyroidism, unspecified; Z79.82 Long term (current) use of aspirin; Z79.4 Long term (current) use of insulin; Z79.899 Other long term (current) drug therapy; Z88.5 Allergy status to narcotic agent
CPT/HCPCS: 90715

== ENCOUNTER 2019-01-20 10:38 | Inpatient (IN) | payer MEDICARE, MEDICAID ==
[2019-01-20] VITALS (19 sets, daily range): BP systolic 136–144; BP diastolic 65–69; O2SAT 83–96
[~2019-01-20] VITALS: Ht 185.4 cm; Wt 164.6 kg
[~2019-01-20 10:38] MED LIST changes: -/MOM400 PO; -/RANI15TA PO; -ACET50TA PO; +AMLO10TA5 PO; +ARTI99.0 OU; +CYAN500T8 PO; +FERR1TAB8 PO; +FOLI1TAB11 PO; +FURO20TA2 PO; +INSUN SC; +LEVO200T31 PO; +LISI40TA PO; +MAPA500T17 PO; +MILK10SU PO; +MUPI1OIN2 EXT; +MUPI1OIN2 TOP; -MUPI2OI EXT; -MUPI2OI TOP; +POTA4.25 PO; +RANI1TAB17 PO; +RANI300T PO; +SENN1TAB41 PO; +SPIR-10 PO; +TERA1CA PO; -TERA5CA PO; +TERA5CAP60 PO; +VITA100066 PO; +ZYLO300T6 PO
[2019-01-20 11:13] LABS: VENOUS BASE EXCESS 7.2 (-2.0-2.0); VENOUS HCO3 37.2 MEQ/L (23.0-27.0); VENOUS O2 SATURATION 81.1 % (60.0-80.0); VENOUS PARTIAL PRESSURE CO2 84.7 mmHg (38.0-50.0); VENOUS PARTIAL PRESSURE O2 54.2 mmHg (30.0-50.0); VENOUS STANDARD HCO3 30.7 MEQ/L; VENOUS TOTAL CO2 39.8 MEQ/L (24.0-28.0)
[2019-01-20 11:18] LABS: BASO % 0.3 % (0.0-1.0); EOS # 0.2 10^3/uL (0.0-0.50); EOS % 2.4 % (0.0-3.0); HEMATOCRIT 38.5 % (42.0-52.0); HEMOGLOBIN 11.5 g/dl (13.5-17.5); LYMPH % 10.7 % (24.0-44.0); MEAN CORPUSCULAR HEMOGLOBIN 26.8 pg (27.0-33.0); MEAN CORPUSCULAR HGB CONC 29.9 g/dl (32.0-36.5); MEAN CORPUSCULAR VOLUME 89.7 fl (80.0-96.0); MONO % 10.7 % (0.0-5.0); NEUTROPHILS # 6.7 10^3/uL (1.8-7.7); NEUTROPHILS % 75.5 % (36.0-66.0); PLATELET COUNT, AUTOMATED 242 10^3/uL (150-450); RED BLOOD COUNT 4.29 10^6/uL (4.30-6.10); WHITE BLOOD COUNT 8.9 10^3/uL (4.0-10.0)
[2019-01-20 11:29] LABS: INR 1.23; PROTHROMBIN TIME 15.2 SECONDS (11.8-14.0)
--- NOTE | 2019-01-20 11:41 | REP ---
Clinical: Cough and dyspnea. Comparison: 02/23/2018. Findings: Cardiomegaly and findings to suggest pulmonary vascular congestion are appreciated along with bibasilar atelectasis/infiltrate (right greater than left). No effusion. No pneumothorax. Skeletal structures intact. Impression: Bibasilar atelectasis/infiltrate (right greater than left) Cannot exclude associated pulmonary vascular congestion. Electronically Signed by Jude Patel MD 01/20/2019 11:32 A
[2019-01-20 11:56] LABS: ALBUMIN 2.9 GM/DL (3.2-5.2); ALT/SGPT 19 U/L (12-78); BILIRUBIN,DIRECT 0.2 MG/DL (0.0-0.2); BILIRUBIN,TOTAL 0.4 MG/DL (0.2-1.0); BLOOD UREA NITROGEN 23 MG/DL (7-18); CALCIUM LEVEL 8.3 MG/DL (8.8-10.2); CARBON DIOXIDE LEVEL 37 MEQ/L (21-32); CHLORIDE LEVEL 97 MEQ/L (98-107); CPK CREATINE PHOSPHOKINASE 54 U/L (39-308); CREATININE FOR GFR 1.22 MG/DL (0.70-1.30); GLOMERULAR FILTRATION RATE > 60.0 (>42); GLUCOSE, FASTING 175 MG/DL (70-100); NT-PRO BNP 198 PG/ML (<125); POTASSIUM SERUM 4.9 MEQ/L (3.5-5.1); SODIUM LEVEL 138 MEQ/L (136-145); TOTAL PROTEIN 7.4 GM/DL (6.4-8.2); TROPONIN I < 0.02 NG/ML (< 0.10)
[2019-01-20] MEDS ORDERED: LANTINJ4 SC (12:14)
[2019-01-20] MEDS ORDERED: ATEN100T PO (12:14)
[2019-01-20] MEDS ORDERED: ACET-683 PO (12:14)
[2019-01-20] MEDS ORDERED: VITA-144 PO (12:14)
[2019-01-20] MEDS ORDERED: NOVOINJ3 SC ×2 (12:14)
[2019-01-20] MEDS ORDERED: AMLO10TA5 PO (12:14)
[2019-01-20] MEDS ORDERED: ASPI81CH44 PO (12:14)
[2019-01-20] MEDS ORDERED: GLUC4GMTAB PO (12:14)
[2019-01-20] MEDS ORDERED: TRAM50TA2 PO (12:14)
[2019-01-20] MEDS ORDERED: FUROSEMIDE 40 MG/4 ML VIAL (J1940) IV ONE (12:15)
--- NOTE | 2019-01-20 12:32 | REP ---
Clinical: Bilateral lower extremity pain . Technique: Thomas scale and color Doppler evaluation using curved array transducer. Findings: Bilateral subcutaneous edema. Ultrasound examination of the right and left lower extremity deep venous structures from the common femoral vein to the popliteal vein demonstrates normal compressibility flow and wave patterns in response to respiration and augmentation. There is no evidence for deep venous thrombosis. Impression: No evidence for deep venous thrombosis. Electronically Signed by Jude Patel MD 01/20/2019 12:24 P
[2019-01-20] MEDS ORDERED: GLUCOSE 4 GM CHEW TABLET PO PRN (13:30)
[2019-01-20] MEDS ORDERED: SENOKOT S TAB PO PRN (13:30)
[2019-01-20] MEDS ORDERED: traMADol 50 MG TAB PO PRN (13:30)
[2019-01-20] MEDS ORDERED: DEXTROSE 50% 50 ML SYRINGE IV PRN (13:30)
[2019-01-20] MEDS ORDERED: ACETAMINOPHEN TAB 650MG DOSE (2X325MG) PO PRN (13:30)
[2019-01-20] MEDS ORDERED: GLUCAGON FOR INJ 1 MG VIAL (J1610) SC PRN (13:30)
--- NOTE | 2019-01-20 14:33 | HPEPDOC ---
General Date of Admission Jan 20, 2019 at 13:22 Date of Service: Jan 20, 2019 Chief Complaint The patient is a 73-year-old male admitted with a reason for visit of CHF. History of Present Illness 73-year-old male with past medical history of hypertension, diabetes, hypothyroidism, GERD, gout, chronic kidney disease stage III, grade 2 diastolic congestive heart failure, pulmonary hypertension, morbid obesity, and obstructive sleep apnea noncompliant with CPAP presented to the ER with a chief complaint of shortness of breath. The patient states that he has been feeling excessively short of breath over the last several weeks. During this time, the patient notes that he has gained 30 pounds. He notes increased swelling in his lower extremities. He also endorses more difficulty laying flat. The patient also states that during this time he has been drinking four large bottles of water/soda. He denies any increase in salt intake. He denies any cough, fevers, chills, chest pain, palpitations, abdominal pain, or any nausea/vomiting/diarrhea. In the ER, patient was noted to be in decompensated congestive heart failure. He will be admitted under the hospitalist service for further evaluation and management. Home Medications Scheduled Allopurinol (Zyloprim) 300 Mg Tab, 300 MG PO DAILY, (Reported) Amlodipine Besylate (Amlodipine Besylate) 10 Mg Tablet, 5 MG PO DAILY, (Reported) Aspirin (Aspirin) 81 Mg Tab.chew, 81 MG PO DAILY, (Reported) Atenolol (Atenolol) 100 Mg Tablet, 100 MG PO DAILY, (Reported) Cholecalciferol (Vitamin D3) (Vitamin D3) 1,000 Unit Tab, 1,000 UNIT PO Q2D, (Reported) ALTERNATES every other day with 2 1000 unit tablets Cholecalciferol (Vitamin D3) (Vitamin D3) 1,000 Unit Tablet, 2,000 UNIT PO Q2D, (Reported) ALTERNATES WITH 1 1000 UNIT TABLET EVERY OTHER DAY Cyanocobalamin (Vitamin B-12) (Vitamin B-12) 500 Mcg Tab, 500 MCG PO QHS, (Reported) Ferrous Sulfate (Ferrous Sulfate) 325 Mg Tab, 325 MG PO BID, (Reported) Folic Acid (Folic Acid) 1 Mg Tab, 1 MG PO QHS, (Reported) Furosemide (Furosemide) 20 Mg Tab, 60 MG PO DAILY, (Reported) Insulin Aspart (Novolog Flexpen) 100 Unit/1 Ml Insuln.pen, 30 UNITS SC ACB, (Reported) Insulin Aspart (Novolog Flexpen) 100 Unit/1 Ml Insuln.pen, 32 UNITS SC BID, (Reported) BEFORE LUNCH AND DINNER Insulin Glargine,Hum.rec.anlog (Lantus Solostar) 100 Unit/1 Ml Insuln.pen, 80 UNITS SC QHS, (Reported) Levothyroxine Sodium (Levoxyl) 200 Mcg Tab, 200 MCG PO DAILY, (Reported) Lisinopril (Lisinopril) 40 Mg Tab, 40 MG PO DAILY, (Reported) Potassium Citrate (Potassium Citrate ER) 15 Meq Tab, 15 MEQ PO BID, (Reported) Ranitidine HCl (Ranitidine HCl) 300 Mg Tab, 1 TAB PO QHS, (Reported) Spironolactone (Spironolactone) 25 Mg Tab, 25 MG PO QHS, (Reported) Terazosin HCl (Terazosin HCl) 1 Mg Cap, 1 MG PO QHS, (Reported) Scheduled PRN Acetaminophen (Acetaminophen) 500 Mg Tablet, 500 MG PO Q4H PRN for PAIN, (Reported) Dextrose (Glucose) 4 Gm Tab.chew, 4 CHW PO PRN PRN for LOW BLOOD SUGAR, (Reported) NEEDED FOR BLOOD SUGAR BELOW 70, REPEAT BLOOD GLUCOSE TESTING IN 15 MINUTES AND RE-TREAT UNTIL ABOVE 70 Polyvinyl Alcohol (Artificial Tears) 1.4 % Мария, 1 DROP OU BID PRN for DRY EYES, (Reported) Sennosides/Docusate Sodium (Senna-S Tablet) 1 Tab Tab, 1 TAB PO BID PRN for CONSTIPATION, (Reported) Tramadol HCl (Tramadol HCl) 50 Mg Tablet, 50 MG PO QID PRN for PAIN, (Reported) Allergies Coded Allergies: codeine (Verified Allergy, Unknown, Hives, 01/20/19) Past Medical History Medical History As noted in HPI. Surgical History Bilateral carpal tunnel release Right knee surgery Kidney stone removed right kidney History of colon cancer/status post partial colectomy 2002 Colonoscopy 06/09. Sam. Diverticulosis, internal hemorrhoids. Repeat 5 years. 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 Lives in [place], [place] by himself. He uses a powered scooter for long distance, and a rolling walker for short distances ambulation. Gets his meals from meals on wheels. Review of Systems Other systems 10 point review of systems negative unless otherwise specified in HPI. Physical Examination General Exam: Positive: Alert, Cooperative, No Acute Distress, Other (morbidly obese appearing) ENT Exam: Positive: Atraumatic, Mucous membr. moist/pink Chest Exam: Positive: Diminished Heart Exam: Positive: Rate Normal, Normal S1, Normal S2 Abdomen Exam: Positive: Soft; Negative: Tenderness Extremity Exam: Positive: Other (4+ pitting edema in the lower extremities bilaterally. Chronic venous stasis changes noted on the extremities.) Psych Exam: Positive: Oriented x 3 Vital Signs Vital Signs Date Time Temp Pulse Resp B/P (MAP) Pulse Ox O2 Delivery O2 Flow Rate FiO2 01/20/19 13:08 70 93 01/20/19 13:01 28 142/77 (98) Nasal Cannula 4.0 01/20/19 11:49 95.8 Laboratory Data Labs 24H Laboratory Tests 2 01/20/19 11:05: Immature Granulocyte % (Auto) 0.4, White Blood Count 8.9, Red Blood Count 4.29L, Hemoglobin 11.5L, Hematocrit 38.5L, Mean Corpuscular Volume 89.7, Mean Corpuscular Hemoglobin 26.8L, Mean Corpuscular Hemoglobin Concent 29.9L, Red Cell Distribution Width 16.5H, Platelet Count 242, Neutrophils (%) (Auto) 75.5H, Lymphocytes (%) (Auto) 10.7L, Monocytes (%) (Auto) 10.7H, Eosinophils (%) (Auto) 2.4, Basophils (%) (Auto) 0.3, Neutrophils # (Auto) 6.7, Lymphocytes # (Auto) 1.0L, Monocytes # (Auto) 1.0H, Eosinophils # (Auto) 0.2, Basophils # (Auto) 0.0, Nucleated Red Blood Cells % (auto) 0.0, Prothrombin Time 15.2H, Prothromb Time International Ratio 1.23, Blood Gas Bicarbonate Standard 30.7, Venous Blood pH 7.260L, Venous Blood Partial Pressure CO2 84.7H, Venous Blood Partial Pressure O2 54.2H, Venous Blood Total Carbon Dioxide 39.8H, Venous Blood HCO3 37.2H, Venous Blood Oxygen Saturation 81.1H, Venous Blood Base Excess 7.2H, Anion Gap 4L, Glomerular Filtration Rate > 60.0, Lactic Acid Level 1.0, Calcium Level 8.3L, Aspartate Amino Transf (AST/SGOT) 13, Alanine Aminotransferase (ALT/SGPT) 19, Alkaline Phosphatase 68, Total Bilirubin 0.4, Direct Bilirubin 0.2, Total Creatine Kinase 54, Creatine Kinase MB 2.0, Creatine Kinase MB Relative Index 3.70, Troponin I < 0.02, ZH-Pfj-F-Type Natriuretic Peptide 198H, Total Protein 7.4, Albumin 2.9L, Albumin/Globulin Ratio 0.64L, Thyroid Stimulating Hormone (TSH) 1.920 CBC/BMP Laboratory Tests 01/20/19 11:05 Red Blood Count 4.29 L, Mean Corpuscular Volume 89.7, Mean Corpuscular Hemoglobin 26.8 L, Mean Corpuscular Hemoglobin Concent 29.9 L, Red Cell Distribution Width 16.5 H, Neutrophils (%) (Auto) 75.5 H, Lymphocytes (%) (Auto) 10.7 L, Monocytes (%) (Auto) 10.7 H, Eosinophils (%) (Auto) 2.4, Basophils (%) (Auto) 0.3, Neutrophils # (Auto) 6.7, Lymphocytes # (Auto) 1.0 L, Monocytes # (Auto) 1.0 H, Eosinophils # (Auto) 0.2, Basophils # (Auto) 0.0 Microbiology Microbiology 01/20/19 Blood Culture, Received Pending 01/20/19 Blood Culture, Received Pending Plan / VTE VTE Prophylaxis Ordered?: Yes Plan Plan Decompensated Diastolic CHF 2/2 Dietary Indiscretion Physical Exam with increased lower extremity edema (4+ edema), and CXR imaging consistent with CHF IV Lasix protocol ordered, spironolactone Monitor I/O's Fluid restriction 2D ECHO ordered We will continue to monitor the patient's volume/respiratory status Hypercarbia on VBG Patient noted to have CO2 level of 85 on VBG--however the patient is comfortably speaking in full sentences, and without any visible respiratory distress. I do not think that the patient needs BiPAP therapy at this time. If there are any concerns moving forward about his respiratory status we will certainly entertain getting an ABG and considering BiPAP therapy. Obstructive Sleep Apnea Patient not compliant with his CPAP for the past 1 month. The patient states that he was diagnosed with obstructive sleep apnea 6 months ago, and was using his CPAP device up until one month ago when he states that his cat urinated on the device. The patient is unaware of his home settings, and states that the device was managed by pulmonary at the [place] in [place]. I did speak with respiratory therapy in the ER; we will titrate the patient on our inpatient CPAP device We will put the patient on continuous pulse oximetry, MONTSERRAT Protocol Diabetes mellitus We'll continue the patient on an insulin regimen that is dosed lower than his regimen at home. We will uptitrate this as tolerated Insulin sliding scale ordered for additional coverage Hypertension Continue regimen as ordered Hypothyroidism Continue levothyroxine Iron deficiency anemia Continue ferrous sulfate Gout Continue allopurinol Constipation Continue Senokot Pulmonary hypertension Likely secondary to morbid obesity, MONTSERRAT Morbid obesity, noncompliance Complicating medical care GERD Continue Pepcid History of colon cancer/status post partial colectomy 2002 Follow up as outpatient DVT prophylaxis Lovenox subcutaneously GERARDO GONZALEZ MD Jan 20, 2019 14:33
[2019-01-20] MEDS: FUROSEMIDE 40 MG/4 ML VIAL (J1940) IV SCH ×2 (15:52→21:41)
[2019-01-20] MEDS: ASPIRIN 81 MG ENTERIC TAB PO SCH (15:53)
[2019-01-20] MEDS: ALLOPURINOL 300 MG TAB PO SCH (15:53)
[2019-01-20] MEDS: ATENOLOL 50 MG TAB PO SCH (15:57)
[2019-01-20] MEDS ORDERED: SLF 3 ML SYR IV PRN (16:15)
[2019-01-20] MEDS: POTASSIUM CITRATE 1080 MG (10MEQ) TAB PO SCH (17:44)
[2019-01-20] MEDS: HumaLOG INSULIN (NovoLOG) PER UNIT SC SCH (17:44)
[2019-01-20] MEDS ORDERED: HumaLOG INSULIN (NovoLOG) PER UNIT SC SCH (21:00)
[2019-01-20] MEDS: LEVEMIR (INSULIN DETEMIR) 1 UNITS/0.01ML SC SCH (21:33)
[2019-01-20] MEDS: ENOXAPARIN 40 MG/0.4 ML SYRINGE (J1650) SC SCH (21:39)
[2019-01-20] MEDS: FERROUS SULFATE 325MG TAB PO SCH (21:40)
[2019-01-20] MEDS: CYANOCOBALAMIN 500 MCG TAB PO SCH (21:40)
[2019-01-20] MEDS: FOLIC ACID 1 MG TAB PO SCH (21:40)
[2019-01-20] MEDS: FAMOTIDINE 20 MG TAB PO SCH (21:40)
[2019-01-20] MEDS: SPIRONOLACTONE 25 MG TAB PO SCH (21:40)
[2019-01-20] MEDS: TERAZOSIN 1 MG CAP PO SCH (21:40)
[2019-01-20] MEDS: SLF 3 ML SYR IV SCH (21:41)
[2019-01-21] VITALS (23 sets, daily range): BP systolic 119–149; BP diastolic 55–67; O2SAT 87–99
[2019-01-21] MEDS: NYSTATIN 100,000 UNITS/GM TOPICAL PWD 15 GM TOP SCH ×3 (00:35→20:50)
[2019-01-21] MEDS: FUROSEMIDE 40 MG/4 ML VIAL (J1940) IV SCH ×7 (03:44→23:52)
[2019-01-21] MEDS: LEVOTHYROXINE 100MCG TABLET (0.1MG) PO SCH (05:31)
[2019-01-21] MEDS: SLF 3 ML SYR IV SCH ×3 (05:32→22:17)
[2019-01-21 08:02] LABS: HEMATOCRIT 38.4 % (42.0-52.0); HEMOGLOBIN 11.4 g/dl (13.5-17.5); MEAN CORPUSCULAR HEMOGLOBIN 27.3 pg (27.0-33.0); MEAN CORPUSCULAR HGB CONC 29.7 g/dl (32.0-36.5); MEAN CORPUSCULAR VOLUME 91.9 fl (80.0-96.0); PLATELET COUNT, AUTOMATED 220 10^3/uL (150-450); RED BLOOD COUNT 4.18 10^6/uL (4.30-6.10)
[2019-01-21 08:30] LABS: CALCIUM LEVEL 8.7 MG/DL (8.8-10.2); CREATININE FOR GFR 1.3 MG/DL (0.70-1.30); GLOMERULAR FILTRATION RATE 57.9 (>42); POTASSIUM SERUM 4.3 MEQ/L (3.5-5.1)
[2019-01-21] MEDS: ASPIRIN 81 MG ENTERIC TAB PO SCH (08:52)
[2019-01-21] MEDS: VITAMIN D 1,000 INTERNATIONAL UNITS TABLET PO SCH (08:52)
[2019-01-21] MEDS: FERROUS SULFATE 325MG TAB PO SCH ×2 (08:52→20:45)
[2019-01-21] MEDS: ATENOLOL 50 MG TAB PO SCH (08:53)
[2019-01-21] MEDS: ALLOPURINOL 300 MG TAB PO SCH (08:53)
[2019-01-21] MEDS: LEVEMIR (INSULIN DETEMIR) 1 UNITS/0.01ML SC SCH ×2 (08:54→20:46)
[2019-01-21] MEDS: POTASSIUM CITRATE 1080 MG (10MEQ) TAB PO SCH ×3 (08:55→17:36)
[2019-01-21] MEDS: HumaLOG INSULIN (NovoLOG) PER UNIT SC SCH ×2 (10:08→13:00)
--- NOTE | 2019-01-21 11:08 | IPNPDOC ---
Subjective Date Seen The patient was seen on 01/21/19. Subjective Chief Complaint/HPI Patient seen and examined at the bedside. No acute overnight events noted. Patient remains fluid overloaded but has diuresed a net negative of 6L overnight. Reports that his respiratory status is improved. Objective Physical Examination General Exam: Positive: Alert, Cooperative, No Acute Distress, Other (morbidly obese appearing) ENT Exam: Positive: Atraumatic, Mucous membr. moist/pink Chest Exam: Positive: Diminished Heart Exam: Positive: Rate Normal, Normal S1, Normal S2 Abdomen Exam: Positive: Soft; Negative: Tenderness Extremity Exam: Positive: Other (4+ pitting edema in the lower extremities bilaterally. Chronic venous stasis changes noted on the extremities.) Psych Exam: Positive: Oriented x 3 Assessment /Plan Plan/VTE VTE Prophylaxis Ordered?: Yes Plan Decompensated Diastolic CHF 2/2 Dietary Indiscretion Physical Exam with increased lower extremity edema (4+ edema), and CXR imaging consistent with CHF IV Lasix protocol ordered, spironolactone Monitor I/O's Fluid restriction 2D ECHO pending Patient diuresed a net negative of 6L overnight, with improved respiratory status this AM We will continue to monitor the patient's volume/respiratory status Hypercarbia 2/2 MONTSERRAT Patient non-compliant with CPAP device at home, and with underlying decompensated CHF with contraction metabolic alkalosis from IV diuresis not completely compensatory of aforementioned hypercarbia (pH 7.33) Unknown baseline CO2 Patient is able to answer questions appropriately at the bedside, but does fransisca carrero Discussed case with Pulmonary, will see in consult--we will start the patient on a trial of table top bipap here and repeat ABG in 2 hrs to establish titration of settings for the patient as he has been noncompliant with his CPAP, and does not know his settings. Obstructive Sleep Apnea Pulmonary/Respiratory therapy on board to titrate CPAP settings We will put the patient on continuous pulse oximetry, MONTSERRAT Protocol Diabetes mellitus We'll continue the patient on an insulin regimen that is dosed lower than his regimen at home. We will uptitrate this as tolerated Insulin sliding scale ordered for additional coverage Hypertension Continue regimen as ordered Hypothyroidism Continue levothyroxine Iron deficiency anemia Continue ferrous sulfate Gout Continue allopurinol Constipation Continue Senokot Pulmonary hypertension Likely secondary to morbid obesity, MONTSERRAT Morbid obesity, noncompliance Complicating medical care GERD Continue Pepcid History of colon cancer/status post partial colectomy 2002 Follow up as outpatient DVT prophylaxis Lovenox subcutaneously VS, I&O, 24H, Fishbone Vital Signs/I&O Vital Signs Date Time Temp Pulse Resp B/P (MAP) Pulse Ox O2 Delivery O2 Flow Rate FiO2 01/21/19 08:53 65 149/67 01/21/19 07:53 97.8 18 92 4.0 01/21/19 04:00 Nasal Cannula I&O- Last 24 Hours up to 6 AM 01/21/19 06:00 Intake Total 510 ml Output Total 6700 ml Balance -6190 ml Laboratory Data 24H LABS Laboratory Tests 2 01/20/19 17:05: Bedside Glucose (Misc Panel) 186H 01/20/19 21:21: Bedside Glucose (Misc Panel) 201H 01/21/19 07:50: Nucleated Red Blood Cells % (auto) 0.0, Anion Gap 0L, Glomerular Filtration Rate 57.9, Blood Urea Nitrogen 20H, Creatinine 1.30, Sodium Level 140, Potassium Level 4.3, Chloride Level 95L, Carbon Dioxide Level 45H, Calcium Level 8.7L CBC/BMP Laboratory Tests 01/21/19 07:50 Red Blood Count 4.18 L, Mean Corpuscular Volume 91.9, Mean Corpuscular Hemoglobin 27.3, Mean Corpuscular Hemoglobin Concent 29.7 L, Red Cell Distribution Width 16.2 H, Calcium Level 8.7 L Microbiology Microbiology 01/20/19 Blood Culture, Received Pending 01/20/19 Blood Culture, Received Pending GERARDO GONZALEZ MD Jan 21, 2019 11:08
[2019-01-21 12:02] LABS: ABG BASE EXCESS 16.7 (-2.0-2.0); ABG HCO3 46.7 MEQ/L (22.0-26.0); ABG O2 SATURATION 93.7 % (95.0-99.0); ABG PARTIAL PRESSURE O2 74.1 mmHg (75.0-100.0); ABG STANDARD HCO3 40.6 MEQ/L (22.0-26.0); ABG TOTAL CO2 49.5 MEQ/L (23.0-31.0); ABG pH (ARTERIAL) 7.326 UNITS (7.350-7.450)
[2019-01-21 12:05] LABS: ABG PARTIAL PRESSURE CO2 91.4 mmHg (35.0-45.0)
--- NOTE | 2019-01-21 16:11 | CR ---
DATE OF CONSULTATION: 01/21/2019 HISTORY OF PRESENT ILLNESS: The patient is a 73-year-old male with a past history of hypertension, diabetes, hypothyroidism, gastroesophageal reflux disease, chronic kidney disease, diastolic congestive heart failure (CHF) with some pulmonary hypertension, obstructive sleep apnea noncompliant with C-PAP, morbid obesity, who presented initially with complaint of increasing shortness of breath. The patient reports that he had been having increasing shortness of breath for the past several weeks, as well as increased lower extremity edema and orthopnea. He also notes history of weight gain of approximately 30 pounds during this time. The patient reports he has dietary indiscretion and will usually drink water, soda and is not compliant with a low-salt diet usually. The patient was admitted with decompensated CHF and was started on Lasix for diuresis and has been significantly net negative since his admission. The patient had previously been on reportedly a C-PAP; however, with records from the pulmonary [facility], he appears to be on a BiPap with settings of 12/8. Yesterday, the patient did not get the C-PAP that was ordered and his ABG this morning shows evidence of chronic hypercarbia, which is currently compensated. There is likely some component as well of metabolic alkalosis contributing to the increased pCO2. The patient was noted to be slightly more lethargic on exam this morning. After some discussion with the hospitalist, the patient was placed on a BiPap with his previous settings of 12/8. He does appear to be somewhat more awake and alert on the BiPap but is still drowsy and sleeping. He is able to wake up however and answer questions appropriately. PAST MEDICAL HISTORY: 1. Hypertension. 2. Diabetes. 3. Hypothyroidism. 4. Gastroesophageal reflux disease. 5. Gout. 6. Chronic kidney disease. 7. Diastolic congestive heart failure (CHF). 8. Pulmonary hypertension. 9. Morbid obesity. 10. Obstructive sleep apnea. 11. Psoriasis. PAST SURGICAL HISTORY. 1. Bilateral carpal tunnel release. 2. Right knee surgery. 3. Kidney stone removal. 4. History of colon cancer status post partial colectomy in 2002. 5. Left breast lipoma. HOME MEDICATIONS: - allopurinol - amlodipine - aspirin - atenolol - vitamin D - B12 - ferrous sulfate - folic acid - Lasix - Lantus - NovoLog - lisinopril - levothyroxine - ranitidine - spironolactone - terazosin - tramadol as needed ALLERGIES: CODEINE. SOCIAL HISTORY: Denies a previous history of smoking. 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 He uses a rolling walker for short distances and a power chair for long distances. FAMILY HISTORY: Noncontributory. PHYSICAL EXAMINATION: Temperature 98.8, pulse 66, respirations 24, blood pressure 136/60, oxygen sat 92% on 3 liters nasal cannula. Input 854, output 4 liters, net negative 3.3 liters. General: The patient is morbidly obese, is lying in bed in no acute distress. He is somewhat somnolent but arousable. He is not using any accessory muscles for respiration. HEENT is normocephalic, atraumatic. Pupils are equal and reactive bilaterally. Neck is supple. Unable to appreciate any jugular venous distention (JVD) due to body habitus. Cardiovascular: Regular rate and rhythm. Normal S1, S2. Systolic murmur auscultated, loudest in the right upper sternal border. Pulmonary: Diminished breath sounds bilaterally with crackles in the bases. Abdomen is morbidly obese. Soft, nontender. Extremities: There is +3 to 4 pitting edema in the lower extremities and chronic venous stasis changes noted bilaterally. There is also onychomycoses in his toes bilaterally. The patient has excoriated, erythematous plaque psoriatic lesions on his extremities in the arms and legs bilaterally. LABORATORY DATA: The WBC 9.0, hemoglobin 11.4, platelets 220. Chemistry: Sodium is 140, potassium 4.3, chloride 95, bicarb 45, BUN 20, creatinine 1.30, glucose is 141, lactic acid 1.0, TSH 1.920. ABG this morning pH 7.326, pCO2 of 91.4, pO2 of 74.1. Chest x-ray on admission showed pulmonary vascular congestion and bilateral fluffy opacities more in the lower lobes. Small effusions likely and cardiomegaly. ASSESSMENT/PLAN: The patient is a 73-year-old male with history of hypertension, diabetes, hypothyroidism, chronic kidney disease, diastolic congestive heart failure (CHF) with pulmonary retention, obstructive sleep apnea noncompliant with his home pressure therapy, who presents with increasing shortness of breath, lower extremity edema, orthopnea and weight gain. Patient with decompensated CHF. His ABG shows evidence of chronic hypercarbia. Suspect the patient has a component of OHS as well as MONTSERRAT given his morbid obesity and evidence of chronically elevated bicarbonate. The patient appears to be compensating appropriately on his ABG. - patient was started on BiPap of 06/30 which is his home settings. - will follow up a repeat ABG to determine if he needs potential adjustments in his BiPap settings as it is unclear how long ago his initial titration study was and suspect he likely has had some weight gain since his initial titration study. - Continue with diuresis as per primary team. - Continue with nasal cannula oxygen supplementation as needed but would maintain O2 sat of 88-92% given his chronic hypercarbia. - If patient has worsening mental status and worsening ABG, may need to transition him from the tabletop to noninvasive positive pressure ventilation; however, as he currently appears to be compensated, we will just followup with possible adjustments of the tabletop BiPap and suspect that he will continue to improve with continued diuresis. Deep vein thrombosis (DVT) prophylaxis with Lovenox. Pepcid for gastrointestinal prophylaxis. FULL CODE. Total critical care time not including procedures approx 1 hour and 10mins MTDD
[2019-01-21 16:23] LABS: ABG O2 SATURATION 91.1 % (95.0-99.0)
[2019-01-21 16:25] LABS: ABG BASE EXCESS 18.5 (-2.0-2.0); ABG HCO3 49.5 MEQ/L (22.0-26.0); ABG PARTIAL PRESSURE O2 68.2 mmHg (75.0-100.0); ABG STANDARD HCO3 42.4 MEQ/L (22.0-26.0); ABG TOTAL CO2 52.8 MEQ/L (23.0-31.0); ABG pH (ARTERIAL) 7.288 UNITS (7.350-7.450)
[2019-01-21 16:28] LABS: ABG PARTIAL PRESSURE CO2 105.9 mmHg (35.0-45.0)
[2019-01-21 19:34] LABS: ABG BASE EXCESS 15.6 (-2.0-2.0); ABG HCO3 43.9 MEQ/L (22.0-26.0); ABG PARTIAL PRESSURE O2 68.1 mmHg (75.0-100.0); ABG STANDARD HCO3 39.4 MEQ/L (22.0-26.0); ABG TOTAL CO2 46.2 MEQ/L (23.0-31.0); ABG pH (ARTERIAL) 7.385 UNITS (7.350-7.450)
[2019-01-21] MEDS ORDERED: LEVEMIR (INSULIN DETEMIR) 1 UNITS/0.01ML SC ONE (20:45)
[2019-01-21] MEDS: SPIRONOLACTONE 25 MG TAB PO SCH (20:45)
[2019-01-21] MEDS: CYANOCOBALAMIN 500 MCG TAB PO SCH (20:46)
[2019-01-21] MEDS: FAMOTIDINE 20 MG TAB PO SCH (20:46)
[2019-01-21] MEDS: TERAZOSIN 1 MG CAP PO SCH (20:46)
[2019-01-21] MEDS: FOLIC ACID 1 MG TAB PO SCH (20:46)
[2019-01-21] MEDS: ENOXAPARIN 40 MG/0.4 ML SYRINGE (J1650) SC SCH (20:50)
--- NOTE | 2019-01-21 21:44 | ECGEPIP ---
[facility] - ED Test Date: 2019-01-20 Pat Name: AMY MCKINNEY Department: Room: - Gender: Male Veneer Taper: ting : 1945 Requested By: Paula Sandoval Order Number: [id number] Reading MD: William Mccartney Measurements Intervals [place] Rate: 63 P: 104 AL: 209 QRS: 19 QRSD: 109 T: 59 QT: 427 QTc: 440 Interpretive Statements SINUS RHYTHM WITH OCCASIONAL SUPRAVENTRICULAR PREMATURE COMPLEXES BASELINE ARTIFACT AFFECTS INTERPRETATION SIMILAR TO 03/15/18 Electronically Signed on 01-21-2019 21:44:31 EDT by William Mccartney
[2019-01-22] MEDS: FUROSEMIDE 40 MG/4 ML VIAL (J1940) IV SCH ×5 (04:08→20:21)
[2019-01-22 04:22] VITALS: BP 155/67
[2019-01-22 05:15] LABS: HEMATOCRIT 39.7 % (42.0-52.0); HEMOGLOBIN 11.7 g/dl (13.5-17.5); MEAN CORPUSCULAR HGB CONC 29.5 g/dl (32.0-36.5); MEAN CORPUSCULAR VOLUME 91.5 fl (80.0-96.0); PLATELET COUNT, AUTOMATED 223 10^3/uL (150-450); RED BLOOD COUNT 4.34 10^6/uL (4.30-6.10); WHITE BLOOD COUNT 10.4 10^3/uL (4.0-10.0)
[2019-01-22 05:33] LABS: BLOOD UREA NITROGEN 17 MG/DL (7-18); CALCIUM LEVEL 8.9 MG/DL (8.8-10.2); CARBON DIOXIDE LEVEL 36 MEQ/L (21-32); CHLORIDE LEVEL 98 MEQ/L (98-107); CREATININE FOR GFR 1.25 MG/DL (0.70-1.30); GLOMERULAR FILTRATION RATE > 60.0 (>42); GLUCOSE, FASTING 96 MG/DL (70-100); POTASSIUM SERUM 4.1 MEQ/L (3.5-5.1); SODIUM LEVEL 137 MEQ/L (136-145)
[2019-01-22 05:44] LABS: ABG BASE EXCESS 18.2 (-2.0-2.0); ABG HCO3 45.5 MEQ/L (22.0-26.0); ABG O2 SATURATION 95.1 % (95.0-99.0); ABG PARTIAL PRESSURE CO2 68.1 mmHg (35.0-45.0); ABG STANDARD HCO3 42.2 MEQ/L (22.0-26.0); ABG TOTAL CO2 47.6 MEQ/L (23.0-31.0); ABG pH (ARTERIAL) 7.443 UNITS (7.350-7.450)
[2019-01-22] MEDS: LEVOTHYROXINE 100MCG TABLET (0.1MG) PO SCH (06:00)
[2019-01-22] MEDS: SLF 3 ML SYR IV SCH ×3 (06:11→22:56)
--- NOTE | 2019-01-22 06:22 | ECHO ---
DATE OF PROCEDURE: 01/21/2019 DATE OF : 1945 AGE: 73 GENDER: Male. HEIGHT: 73 inches WEIGHT: 363 pounds BODY SURFACE AREA: 2.77 meters squared INPATIENT: [facility] - Room 3219 REFERRING PHYSICIAN: Dr. Akhil Alfaro INDICATION: Heart failure (unspecified). MEASUREMENTS 2-D Measurements: RV: 4.8 cm LV: 5.5 cm Septum: 1.3 cm Posterior wall: 1.3 cm Aortic root: 3.6 cm LA: 4.4 cm LVEF: 65% Doppler Measurements: AV: 2.57 m/s LVOT: 1.05 m/s LVOT diameter: 2.5 cm Mean AV gradient: 13 mmHg Dimensionless index: 0.43 MV - E 92 A 75 EA ratio: 1.2 Early mitral deceleration time: 215 ms E prime: 6.6 A prime: 6.3 E/E prime ratio: 13.9 PCWP: 17.4 mmHg PV: 1.0 m/s Pulmonary artery acceleration time: 106 ms RVSP: 46 mmHg IVC: 2.7 cm COMMENTS: Normal sinus rhythm without intraventricular conduction disturbance. Technically challenging study in light of the patient's body habitus but diagnostically useful information was still obtained. M-mode and two-dimensional echocardiography was performed with pulsed, continuous wave, color flow and tissue Doppler studies. Left ventricular size upper limits of normal with mild symmetrical hypertrophy and preserved systolic function. Mildly dilated left atrium with impairment of LV diastolic function and mildly elevated estimated mean left atrial pressure. Moderately dilated right heart chambers with normal wall motion and Doppler evidence of at least moderate pulmonary hypertension. Moderately dilated inferior vena cava with markedly reduced respiratory collapse in keeping with an elevated central venous pressure - right heart failure. Moderate aortic valvular sclerosis with mild stenosis and mild insufficiency. Normal aortic root measurements. Mildly thickened mitral annulus, but normal leaflet excursion and no posterior systolic buckling with only trace insufficiency. Normal appearing tricuspid valve with mild insufficiency. No apparent intracardiac mass or pericardial effusion. MTDD
[2019-01-22] MEDS: POTASSIUM CITRATE 1080 MG (10MEQ) TAB PO SCH ×3 (07:48→17:10)
[2019-01-22 08:00] VITALS: BP 162/64
[2019-01-22] MEDS: FERROUS SULFATE 325MG TAB PO SCH ×2 (08:32→20:20)
[2019-01-22] MEDS: VITAMIN D 1,000 INTERNATIONAL UNITS TABLET PO SCH (08:33)
[2019-01-22] MEDS: LEVEMIR (INSULIN DETEMIR) 1 UNITS/0.01ML SC SCH ×2 (08:33→20:21)
[2019-01-22] MEDS: ALLOPURINOL 300 MG TAB PO SCH (09:00)
[2019-01-22] MEDS: CEPHALEXIN 500 MG CAP PO SCH ×4 (09:00→20:20)
[2019-01-22] MEDS: ATENOLOL 50 MG TAB PO SCH (09:31)
[2019-01-22] MEDS: ASPIRIN 81 MG ENTERIC TAB PO SCH (09:31)
[2019-01-22] MEDS: NYSTATIN 100,000 UNITS/GM TOPICAL PWD 15 GM TOP SCH ×2 (09:32→20:21)
--- NOTE | 2019-01-22 11:40 | IPNPDOC ---
Date Seen The patient was seen on 01/22/19. Progress Note SUBJECTIVE: Mr. Chew was seen this morning on bedside rounds on BiPAP. He was somewhat somnolent but arousable to verbal stimuli. He was lying in bed in no acute distress and was not using any accessory muscles for respiration. No acute overnight events were noted. He remains fluid overloaded but his lower extremity edema has improved from yesterday. Reports that his respiratory status is impr kathia. He states that he was in no pain today. OBJECTIVE PHYSICAL EXAMINATION: VITAL SIGNS: Please see below. General Exam: Positive: Alert, Cooperative, No Acute Distress, Other (morbidly obese appearing). He was somewhat somnolent but arousable to verbal stimuli. ENT Exam: Positive: Atraumatic, Mucous membr. moist/pink Respiratory Exam: Positive: Diminished breath sounds b/l Heart Exam: Positive: Rate Normal, Normal S1, Normal S2. Abdomen Exam: Positive: Soft; Negative: Tenderness Extremity Exam: Positive: Other (4+ pitting edema in the lower extremities bilaterally. Chronic venous stasis changes noted on the extremities.) Patient has excoriated, erythematous plaque psoriatic lesions on his arms and legs bilaterally. Psych Exam: Positive: Oriented x 3 LABORATORY DATA, IMAGING STUDIES, MICROBIOLOGY: Please see below. IMAGIN. Chest X-ray 01/20: -Bibasilar atelectasis/infiltrate (right greater than left) -Cannot exclude associated pulmonary vascular congestion. 2. Vascular Ultrasound 01/20: No evidence for deep venous thrombosis. DVT prophylaxis ordered?: Lovenox subcutaneously ASSESSMENT AND PLAN: This is a 73-year-old male with a past medical history of HTN, DM, hypothyroidism, GERD, CKD, diastolic congestive heart failure, MONTSERRAT who is non-compliant with C-PAP, morbid obesity who presented with shortness of breath. PROBLEMS: 1. Decompensated Diastolic CHF 2/2 Dietary Indiscretion -Physical Exam with increased lower extremity edema (4+ edema), and CXR imaging consistent with CHF -IV Lasix protocol ordered, spironolactone -Monitor I/O's - has remained negative fluid balanced -Fluid restriction -2D ECHO pending -Patient diuresed with improved respiratory status this AM -We will continue to monitor the patient's volume/respiratory status Acute metabolic encephalopathy - likely 2/2 hypercarbia - oriented to person - no focal deficits noted 2. Hypercarbia 2/2 MONTSERRAT -Patient non-compliant with CPAP device at home, and with underlying decompensated CHF with contraction metabolic alkalosis from IV diuresis not completely compensatory of aforementioned hypercarbia (pH 7.33) -Unknown baseline CO2 -Discussed case with Pulmonary, appreciate their help - will c/w BiPAP and monitor ABG 3. Obstructive Sleep Apnea -Pulmonary/Respiratory therapy on board to titrate CPAP settings -We will put the patient on continuous pulse oximetry, MONTSERRAT Protocol 4. Diabetes mellitus -We'll continue the patient on an insulin regimen that is dosed lower than his regimen at home. -We will uptitrate this as tolerated -Insulin sliding scale ordered for additional coverage 5. Hypertension -Continue regimen as ordered 6. Hypothyroidism -Continue levothyroxine 7. Iron deficiency anemia -Continue ferrous sulfate 8. Gout -Continue allopurinol 9. Constipation -Continue Senokot 10. Pulmonary hypertension -Likely secondary to morbid obesity, MONTSERRAT 11. Morbid obesity, noncompliance -Complicating medical care 12. GERD -Continue Pepcid 13. History of colon cancer/status post partial colectomy 2002 -Follow up as outpatient 14. DVT prophylaxis -Lovenox subcutaneously DISPOSITION: Patient was somnolent on exam today but arousable to verbal stimuli and stated he was in no pain today. His respiratory status and hypercarbia are improved today. His lower extremity edema is improved from yesterday although he still demonstrates 4+ pitting edema. C/w Lasix and BiPAP. Monitor I/O, ABG, and volume/respiratory status. VS, I&O, [facility] Vital Signs/I&O Vital Signs Date Time Temp Pulse Resp B/P (MAP) Pulse Ox O2 Delivery O2 Flow Rate FiO2 01/22/19 09:31 72 163/69 01/22/19 08:00 99.4 18 88 30 01/21/19 17:12 BIPAP/CPAP 01/21/19 16:00 3.0 I&O- Last 24 Hours up to 6 AM 01/22/19 06:00 Intake Total 704 ml Output Total 1975 ml Balance -1271 ml Laboratory Data 24H LABS Laboratory Tests 2 01/21/19 11:47: Blood Gas Bicarbonate Standard 40.6H, Arterial Blood pH 7.326L, Arterial Blood Partial Pressure CO2 91.4*H, Arterial Blood Partial Pressure O2 74.1L, Arterial Blood Total CO2 49.5H, Arterial Blood HCO3 46.7H, Arterial Blood Base Excess 16.7H, Arterial Blood Oxygen Saturation 93.7L 01/21/19 12:40: Bedside Glucose (Misc Panel) 267H 01/21/19 16:13: Blood Gas Bicarbonate Standard 42.4H, Arterial Blood pH 7.288L, Arterial Blood Partial Pressure CO2 105.9*H, Arterial Blood Partial Pressure O2 68.2L, Arterial Blood Total CO2 52.8H, Arterial Blood HCO3 49.5H, Arterial Blood Base Excess 18.5H, Arterial Blood Oxygen Saturation 91.1L 01/21/19 17:38: Bedside Glucose (Misc Panel) 114H 01/21/19 19:20: Blood Gas Bicarbonate Standard 39.4H, Arterial Blood pH 7.385, Arterial Blood Partial Pressure CO2 75.0*H, Arterial Blood Partial Pressure O2 68.1L, Arterial Blood Total CO2 46.2H, Arterial Blood HCO3 43.9H, Arterial Blood Base Excess 15.6H, Arterial Blood Oxygen Saturation 94.0L 01/21/19 20:09: Bedside Glucose (Misc Panel) 108 01/22/19 00:49: Bedside Glucose (Misc Panel) 103 01/22/19 04:53: Nucleated Red Blood Cells % (auto) 0.0, Anion Gap 3L, Glomerular Filtration Rate > 60.0, Blood Urea Nitrogen 17, Creatinine 1.25, Sodium Level 137, Potassium Level 4.1, Chloride Level 98, Carbon Dioxide Level 36H, Calcium Level 8.9 01/22/19 05:30: Blood Gas Bicarbonate Standard 42.2H, Arterial Blood pH 7.443, Arterial Blood Partial Pressure CO2 68.1*H, Arterial Blood Partial Pressure O2 75.0, Arterial Blood Total CO2 47.6H, Arterial Blood HCO3 45.5H, Arterial Blood Base Excess 18.2H, Arterial Blood Oxygen Saturation 95.1 CBC/BMP Laboratory Tests 01/22/19 04:53 Red Blood Count 4.34, Mean Corpuscular Volume 91.5, Mean Corpuscular Hemoglobin 27.0, Mean Corpuscular Hemoglobin Concent 29.5 L, Red Cell Distribution Width 16.1 H, Calcium Level 8.9 Microbiology Microbiology 01/20/19 Blood Culture - Preliminary, Resulted No growth after 24 hours . All specim... 01/20/19 Blood Culture - Preliminary, Resulted No Growth after 48 hours. All Specime... GME ATTESTATION GME ATTESTATION My faculty preceptor for this patient encounter was physically present during the encounter and was fully available. All aspects of the patient interview, examination, medical decision making process, and medical care plan development were reviewed and approved by the faculty preceptor. The faculty preceptor is aware and concurs with the plan as stated in the body of this note and will attest to such by his/her cosignature. ATTENDING NOTE I, Christiane Bravo, have independently examined this patient and performed my own physical exam, as well as reviewed the documentation and edited where necessary. I have discussed in detail with the resident / student the findings and plan of treatment as documented by the resident / student and edited their note. I agree with their findings and treatment plan and have edited their documentation. I will continue to follow the patient during this hospital stay. GLENROY CHEN OMS-3 Jan 22, 2019 11:40 CHRISTIANE BRAVO MD Jan 22, 2019 16:16
[2019-01-22 12:00] VITALS: BP 158/67
--- NOTE | 2019-01-22 12:48 | CCN ---
DATE: 01/22/2019 The patient was seen and examined this morning during bedside rounds. The patient has had brisk diuresis overnight. This morning he is more awake and responsive on the BiPAP. His ABGs have also improved. He currently report some improvement in his shortness of breath. He denies any chest pain. No abdominal pain. No nausea or vomiting. PHYSICAL EXAM: Temperature 99.4, pulse of 56, respirations 18 and blood pressure 152/64, O2 sat 88% on 30% FiO2. Input: 54, output 4.8 liters, net negative 4 liters GENERAL: The patient is morbidly obese, is lying in the bed in no acute respiratory distress. He is not using any accessory muscles of respiration. He appears more awake and alert this morning. HEENT: Normocephalic, atraumatic. Pupils are equal, reactive to light bilaterally. NECK: Supple. Neck is supple, unable to appreciate any jugular venous distention (JVD) due to body habitus. CARDIOVASCULAR: Regular rate and rhythm. Normal S1, S2. Systolic murmur auscultated loudest in the right upper sternal border. PULMONARY: Decreased breath sounds bilaterally with crackles in the bases. No wheezing noted or rhonchi. ABDOMEN: Morbidly obese. Is soft, nontender to palpation. EXTREMITIES: There is continued +3 pitting edema in the bilateral lower extremities and chronic venous stasis changes bilaterally. There is also some increased erythema and warmth in the lower extremities with some blistering lesions. The patient also has onychomycosis in his toes bilaterally and he has excoriated erythematous plaque psoriasis lesions in his arms and his legs bilaterally. LABS: WBC 10.4, hemoglobin 11.7, platelets 223. Chemistry: Sodium is 137, potassium 4.1. Chloride is 98, bicarb 36, BUN 17, creatinine 1.25, glucose is 96. ABG this morning: pH 7.443, pCO2 of 68.1, pO2 of 75. ASSESSMENT/PLAN: The patient is a 73-year-old male with history of hypertension, diabetes, hypothyroidism, chronic kidney disease (CKD), congestive heart failure (CHF) with pulmonary hypertension, obstructive sleep apnea (MONTSERRAT) noncompliant with home BiPAP, who presents with increased shortness of breath, lower extremity edema, orthopnea weight gain. Patient with decompensated CHF likely in the setting of dietary indiscretion. The patient was started on tabletop BiPAP with his home settings of 12/8. His repeat ABG showed worsening of his chronic hypercarbia likely in the setting of his CHF as well as inadequate pressure support. - The patient was transferred to the intensive care unit (ICU) to be started on our BiPAP with a rate of 530 with a setting of 28/10 and a respiratory rate of 18 and 35% FiO2. With these settings, the patient's ABG and his chronic hypercarbia improved. - Would continue the patient with BiPAP and switch him to a tabletop BiPAP tonight with the setting of 20/10 and FiO2 of 35%. - Continue nasal cannula oxygen supplementation as needed but given his chronic hypercarbia, would maintain O2 sat between 88-92% - Continue with diuresis as per his primary team. Continue to monitor his ins and outs and replete electrolytes as needed. - The patient has evidence of likely some local cellulitis in his lower extremities. Will start him on Keflex for cellulitis with 500 mg three times a day for 5-day course. His procalcitonin was 0.44. His chest x-ray showed some evidence of vascular congestion and some bilateral opacities which may have been due to pulmonary edema. Would hold off on antibiotics for pneumonia at this time. - The patient will need a patient family services (PFS) consultation, so that he can get replacement of his home BiPAP. Apparently, his cat had urinated on it and he had not been having functioning BiPAP for some time. He will also likely need physical therapy and occupational therapy (OT) as he is usually mobilizes with a walker or a scooter. Deep venous thrombosis (DVT) prophylaxis: Lovenox Gastrointestinal (GI) prophylaxis: Pepcid FULL CODE. Total critical care time spent not including procedures approximately 40 minutes.
[2019-01-22 16:00] VITALS: BP 134/70
[2019-01-22 20:15] VITALS: BP 143/64
[2019-01-22] MEDS: FAMOTIDINE 20 MG TAB PO SCH (20:19)
[2019-01-22] MEDS: SPIRONOLACTONE 25 MG TAB PO SCH (20:20)
[2019-01-22] MEDS: FOLIC ACID 1 MG TAB PO SCH (20:20)
[2019-01-22] MEDS: CYANOCOBALAMIN 500 MCG TAB PO SCH (20:20)
[2019-01-22] MEDS: TERAZOSIN 1 MG CAP PO SCH (20:20)
[2019-01-22] MEDS: ENOXAPARIN 40 MG/0.4 ML SYRINGE (J1650) SC SCH (20:21)
[2019-01-22 23:58] VITALS: BP 136/63
[2019-01-23] MEDS: FUROSEMIDE 40 MG/4 ML VIAL (J1940) IV SCH ×3 (03:45→07:26)
[2019-01-23 04:00] VITALS: BP 146/67
[2019-01-23 04:59] LABS: HEMATOCRIT 36.8 % (42.0-52.0); HEMOGLOBIN 11.2 g/dl (13.5-17.5); MEAN CORPUSCULAR HEMOGLOBIN 26.7 pg (27.0-33.0); MEAN CORPUSCULAR HGB CONC 30.4 g/dl (32.0-36.5); MEAN CORPUSCULAR VOLUME 87.8 fl (80.0-96.0); PLATELET COUNT, AUTOMATED 230 10^3/uL (150-450); RED BLOOD COUNT 4.19 10^6/uL (4.30-6.10); WHITE BLOOD COUNT 7.8 10^3/uL (4.0-10.0)
[2019-01-23 05:18] LABS: CALCIUM LEVEL 8.7 MG/DL (8.8-10.2); CREATININE FOR GFR 1.38 MG/DL (0.70-1.30); GLOMERULAR FILTRATION RATE 54.1 (>42); POTASSIUM SERUM 3.4 MEQ/L (3.5-5.1)
[2019-01-23] MEDS: LEVOTHYROXINE 100MCG TABLET (0.1MG) PO SCH (06:08)
[2019-01-23] MEDS: SLF 3 ML SYR IV SCH ×3 (06:08→20:09)
[2019-01-23] MEDS: POTASSIUM CITRATE 1080 MG (10MEQ) TAB PO SCH ×3 (07:26→17:11)
[2019-01-23] MEDS ORDERED: POTASSIUM CHLORIDE 10 MEQ SR TABLET PO ONE (07:45)
[2019-01-23 08:00] VITALS: BP 144/64
[2019-01-23] MEDS: CEPHALEXIN 500 MG CAP PO SCH (08:04)
[2019-01-23] MEDS: LEVEMIR (INSULIN DETEMIR) 1 UNITS/0.01ML SC SCH ×2 (08:04→20:08)
[2019-01-23] MEDS: FERROUS SULFATE 325MG TAB PO SCH ×2 (08:04→20:08)
[2019-01-23] MEDS: VITAMIN D 1,000 INTERNATIONAL UNITS TABLET PO SCH (08:04)
[2019-01-23] MEDS: ASPIRIN 81 MG ENTERIC TAB PO SCH (08:04)
[2019-01-23] MEDS: NYSTATIN 100,000 UNITS/GM TOPICAL PWD 15 GM TOP SCH ×2 (08:05→20:09)
[2019-01-23] MEDS: ATENOLOL 50 MG TAB PO SCH (08:05)
[2019-01-23] MEDS: ALLOPURINOL 300 MG TAB PO SCH (08:05)
[2019-01-23] MEDS: VANCOMYCIN HCL 1,000 MG, VIAL MATE ADAPTER 1 EACH in D5W 250 ML IV SCH ×3 (11:25→22:07)
[2019-01-23 12:00] VITALS: BP 134/59
--- NOTE | 2019-01-23 14:05 | IPNPDOC ---
Text Note Date of Service The patient was seen on 01/23/19. NOTE Subjective: Patient was seen and examined at the bedside. Currently, patient was seen sitting up in a chair in ICU. He denies any chest pain, shortness of breath, p alpitations. Denies any nausea, vomiting, abdominal pain, aspiration or diarrhea. Patient does report that his lower extremity swelling has been improving but does report that they have been becoming increasingly red. Objective: Vitals (See below) General: Lying in bed, no acute distress, comfortable, AAOx3 HEENT: NC, AT CVS: RRR, +S1S2 Lungs: Fair air entry b/l, no appreciable wheezing, rhonchi or rales Abdomen: Soft, ND, NT, Morbid obesity Extremities: 2+ pitting edema bilaterally, - Calf tenderness IMAGIN. Chest X-ray 01/20: -Bibasilar atelectasis/infiltrate (right greater than left) -Cannot exclude associated pulmonary vascular congestion. 2. Vascular Ultrasound 01/20: No evidence for deep venous thrombosis. Assessment and plan: ASSESSMENT AND PLAN: This is a 73-year-old male with a past medical history of HTN, DM, hypothyroidism, GERD, CKD, diastolic congestive heart failure, MONTSERRAT who is non-compliant with C-PAP, morbid obesity who presented with shortness of breath. PROBLEMS: Decompensated Diastolic CHF 2/2 Dietary Indiscretion - He has reported improvement in his leg swelling - Physical exam with evidence of gross overload - As remained negative fluid balance at 11 L - ECHO noted - c/w Fluid restriction, I/Os, daily weights - c/w Furosemide; dose reduced (re: mild elevation of Cr) Bilateral leg erythema - possibly 2/2 cellulitis - Patient has a history of MRSA wound infections - s/p Keflex; c/w Vancomycin (Day #1) -2D ECHO pending -Patient diuresed with improved respiratory status this AM -We will continue to monitor the patient's volume/respiratory status Acute metabolic encephalopathy - likely 2/2 hypercarbia - oriented to person - no focal deficits noted Hypercarbia 2/2 MONTSERRAT -Patient non-compliant with CPAP device at home, and with underlying decompensated CHF with contraction metabolic alkalosis from IV diuresis not completely compensatory of aforementioned hypercarbia (pH 7.33) -Unknown baseline CO2; repeat ABGs have shown improvement in CO2 retention -Discussed case with Pulmonary, appreciate their help - will c/w BiPAP and monitor ABG Obstructive Sleep Apnea - Pulmonary/Respiratory therapy on board to titrate CPAP settings - We will put the patient on continuous pulse oximetry, MONTSERRAT Protocol Diabetes mellitus - c/w Levemir and ISS Hypertension - c/w Furosemide, Spironolactone and Atenolol Hypothyroidism - c/w levothyroxine Iron deficiency anemia - c/w ferrous sulfate Gout - c/w allopurinol Constipation - c/w Senokot Pulmonary hypertension - Likely secondary to morbid obesity and MONTSERRAT Morbid obesity, noncompliance - Complicating medical care History of colon cancer/status post partial colectomy 2002 -Follow up as outpatient GERD - c/w Famotidine DVT prophylaxis - c/w Lovenox VS,Fishbone, I+O VS, Fishbone, I+O Laboratory Tests 01/23/19 04:40 Red Blood Count 4.19 L, Mean Corpuscular Volume 87.8, Mean Corpuscular Hemoglobin 26.7 L, Mean Corpuscular Hemoglobin Concent 30.4 L, Red Cell Dis tribution Width 16.2 H, Calcium Level 8.7 L Vital Signs Date Time Temp Pulse Resp B/P (MAP) Pulse Ox O2 Delivery O2 Flow Rate FiO2 01/23/19 12:00 98.4 72 22 134/59 (84) 90 2.0 01/22/19 08:00 30 01/21/19 17:12 BIPAP/CPAP I&O- Last 24 Hours up to 6 AM 01/23/19 06:00 Intake Total 1440 ml Output Total 4575 ml Balance -3135 ml ELI BRAVO MD Jan 23, 2019 14:05
--- NOTE | 2019-01-23 14:30 | CCN ---
CRITICAL CARE PROGRESS NOTE DATE: 01/23/2019 The patient was seen and examined this morning during bedside rounds. He was placed on tabletop BiPap last night which he tolerated well. This morning he is out of bed in chair and he reports his breathing has significantly improved. He denies any chest pain. No coughing. No increased shortness of breath. He has not had any abdominal pain or nausea or vomiting. No fevers overnight. PHYSICAL EXAM: Temperature 98.4, pulse 73, respirations 20, blood pressure 146/67, O2 sat 89% on 2 liters nasal cannula, ins 1.4 liters, out 4.7 liters, net negative 3.2 liters. General: The patient is morbidly obese, is sitting in the chair in no acute respiratory distress. He is not using any accessory muscles for respiration. He is alert and oriented times three. HEENT: Normocephalic, atraumatic. Pupils are reactive to light bilaterally. Nose appears to have rhinophyma and possible rosacea. Neck: Is supple. Unable to appreciate jugular venous distention (JVD) due to body habitus. Cardiovascular: Regular rate and rhythm. Normal S1-S2. There is a systolic murmur auscultated loudest in the right upper sternal border. Pulmonary: There are improved breath sounds bilaterally with some crackles in the bases. No wheezing or rhonchi noted. Abdomen is morbidly obese, soft, nontender to palpation. Extremities: Patient has some improvement in his pitting edema bilaterally. He does have evidence of chronic venous stasis changes bilaterally. In the left lower extremity he has some scabbing pustular lesions as well as some scattered areas of fluctuance. In the right lower extremity he has some pustular lesions as well draining yellowish pus. The patient also has onychomycosis in his toes bilaterally and he has evidence of excoriated erythematous plaque lesions in his arms and his legs bilaterally. LABORATORY DATA: WBC 7.8, hemoglobin 11.2, platelets 230. Chemistry - sodium is 139, potassium 3.4, chloride 93, bicarb 42, BUN 21, creatinine is 1.38, glucose is 134. IMAGING STUDIES: Echo shows a normal EF with some mild LV hypertrophy. The left atrium is mildly dilated and there is evidence of left ventricular diastolic dysfunction. He has moderately dilated right heart chambers and evidence of moderate pulmonary hypertension. His IVC is dilated and there is increased CVP. He also has a mild aortic insufficiency and aortic stenosis. ASSESSMENT AND PLAN: Patient is a 73-year-old male with a history of hypertension, diabetes, hypothyroidism, chronic kidney disease (CKD), congestive heart failure (CHF) with pulmonary hypertension, obstructive sleep apnea (MONTSERRAT) noncompliant with home BiPap who presents with increased shortness of breath, lower extremity edema, orthopnea and weight gain. Patient with decompensated CHF likely secondary to dietary indescrition. He was noted to have acute worsening of his chronic hypercarbia in the setting of his CHF and was transferred to the ICU to be placed on our BiPap here as he was not improving with his home tabletop BiPap settings. - The patient was on tabletop BiPap overnight with the setting of 20 over 10 and an FIO2 of 35%. Would continue him with BiPap with these settings at bedtime and with naps. Patient will need to get replacement for his home BiPap as his cat had urinated on it and the BiPap was then thrown out by his landlord. He has been getting supplies from the [place] but will need to see if he is able to get a BiPap from the [place] or potentially would need to get it from another home care company. - The patient will need a likely repeat sleep titration study for adjustment of his BiPap settings as an outpatient, I suspect 12 over 8 is not sufficient for him anymore. - Continue with Lasix for diuresis. The patient's creatinine has increased slightly and so we will decrease his Lasix and continue to monitor his renal function and his ins and outs. - We will repeat his electrolytes today and continue to monitor. Cellulitis. Patient was started on Keflex initially for a cellulitis, however, he has a history of methicillin-resistant Staphylococcus aureus (MRSA) and this morning the patient continues to have what looks to be pustular cellulitis. Therefore we will start him on vancomycin and we will send a wound culture. Physical therapy (PT) and occupational therapy (OT) consult was placed as the patient usually mobilizes with a walker or scooter. Deep venous thrombosis (DVT) prophylaxis, Lovenox. Gastrointestinal (GI) prophylaxis, Pepcid. Full code. Total critical care time spent not including procedures approximately 40 minutes. Please do not hesitate to call if any further questions or concerns. MTDD
--- NOTE | 2019-01-23 14:46 | PHACANCOPD ---
PHARMACY VANCOMYCIN DOSING Pt Demographics Demographics Patient Age:73 , Weight:168.500 , Gender: male Adjusted Body Weight Date: 01/23/19, Adjusted Body Weight: [115.34] Kg Events Past 24 Hours Events Past 24 Hours: NO: Dialysis, Diuretic Therapy, Change in CrCl, Fever, Elevation in WBC, Pending Diagnostics, Pending Procedures, Other Vancomycin Vancomycin Target Ranges: 10-20 mcg/ml Vancomycin Load Y/N: Yes Load Dose Date Time Vancomycin Load Dose: 2G IV Date: 01/23/19 Time: 1130 Vancomycin Dose Date: 01/23/19. Current Vancomycin Dose: [1G IV Q12H @ 2200] Intermittent Dosing?: No Labs Labs Vital Signs Date Time Temp Pulse Resp B/P (MAP) Pulse Ox O2 Delivery O2 Flow Rate FiO2 01/23/19 12:00 98.4 72 22 134/59 (84) 90 2.0 01/23/19 08:05 82 144/79 01/23/19 08:00 99.0 68 20 144/64 (90) 89 2.0 01/23/19 08:00 2.0 01/23/19 04:00 2.0 01/23/19 04:00 98.4 73 20 146/67 (93) 89 01/23/19 00:00 2.0 01/22/19 23:58 99.0 62 18 136/63 (87) 90 01/22/19 20:20 143/64 01/22/19 20:15 98.6 72 20 143/64 (90) 89 2.0 01/22/19 20:00 2.0 01/22/19 17:00 2.0 01/22/19 16:00 99.3 70 22 134/70 (91) 3.0 Intake & Output 01/23/19 06:00 Intake Total 1440 ml Output Total 4575 ml Balance -3135 ml Laboratory Tests 01/22/19 17:02: Bedside Glucose (Misc Panel) 165H 01/22/19 20:06: Bedside Glucose (Misc Panel) 224H 01/23/19 03:47: Bedside Glucose (Misc Panel) 145H 01/23/19 04:40: White Blood Count 7.8, Red Blood Count 4.19L, Hemoglobin 11.2L, Hematocrit 36.8L, Mean Corpuscular Volume 87.8, Mean Corpuscular Hemoglobin 26.7L, Mean Corpuscular Hemoglobin Concent 30.4L, Red Cell Distribution Width 16.2H, Platelet Count 230, Nucleated Red Blood Cells % (auto) 0.0, Blood Urea Nitrogen 21H, Creatinine 1.38H, Sodium Level 139, Potassium Level 3.4L, Chloride Level 93L, Carbon Dioxide Level 42H, Calcium Level 8.7L, Anion Gap 4L, Glomerular Filtration Rate 54.1, Fasting Glucose 139H 01/23/19 11:30: Bedside Glucose (Misc Panel) 261H 01/23/19 13:49: Blood Urea Nitrogen [Pending], Creatinine [Pending], Sodium Level [Pending], Potassium Level [Pending], Chloride Level [Pending], Carbon Dioxide Level [Pending], Calcium Level [Pending], Anion Gap [Pending], Fasting Glucose [Pending] Current Medications Medications (Trade) Dose Ordered Sig/Dante Route PRN Reason Start Time Stop Time Status Last Admin Dose Admin Allopurinol (Zyloprim) 300 mg DAILY PO 01/20/19 09:00 01/23/19 08:05 300 MG Aspirin (Ecotrin) 81 mg DAILY PO 01/20/19 09:00 01/23/19 08:04 81 MG Atenolol (Tenormin) 100 mg DAILY PO 01/20/19 09:00 01/23/19 08:05 100 MG Cyanocobalamin (Vitamin B12) 500 mcg QHS PO 01/20/19 21:00 01/22/19 20:20 500 MCG Enoxaparin Sodium (Lovenox) 40 mg QHS SC 01/20/19 21:00 01/22/19 20:21 40 MG Famotidine (Pepcid) 20 mg QHS PO 01/20/19 21:00 01/22/19 20:19 20 MG Ferrous Sulfate (Ferrous Sulfate) 325 mg BID PO 01/20/19 21:00 01/23/19 08:04 325 MG Folic Acid (Folic Acid) 1 mg QHS PO 01/20/19 21:00 01/22/19 20:20 1 MG Insulin Detemir (Levemir Insulin) 40 units QHS SC 01/20/19 21:00 01/22/19 20:21 40 UNITS Levothyroxine Sodium (Synthroid) 200 mcg DAILY@0600 PO 01/21/19 06:00 01/23/19 06:08 200 MCG Nystatin (Mycostatin Powder, Nystop) APPLY TO ABDOMINAL FOLDS BID TOP 01/20/19 21:00 01/23/19 08:05 1 DOSE Potassium Citrate (Urocit-K) 1,080 mg WM PO 01/20/19 18:00 01/23/19 12:18 1,080 MG Sodium Chloride (Saline Lock Flush) 2 ml SLF IV 01/20/19 22:00 01/23/19 12:18 2 ML Spironolactone (Aldactone) 25 mg QHS PO 01/20/19 21:00 01/22/19 20:20 25 MG Terazosin HCl (Hytrin) 1 mg QHS PO 01/20/19 21:00 01/22/19 20:20 1 MG Vitamin D (Vitamin D) 1,000 units Q2D PO 01/21/19 09:00 01/23/19 08:04 1,000 UNITS Micro Microbiology 01/20/19 Blood Culture - Preliminary, Resulted No Growth after 72 hours. All specime... 01/20/19 Blood Culture - Preliminary, Resulted No Growth after 72 hours. All specime... 01/23/19 Gram Stain - Final, Resulted 01/23/19 Wound Culture, Resulted Pending Creatinine Clearance Date:01/23/19. Creatinine Clearance: [CALCALCULATED 80 USING ABW]. Assessment and Plan Maintaining Current Dose?: Yes Reason for dose change: No Dose Change Pharmacist Note Pharmacist Note Date: 01/23/19. Pharmacist note: Patient presented to ED with shortness of breath and was admitted for decompensated congestive heart failure. Pharmacy vancomycin consult was placed today due to lower extremity swelling as a result of possible cellulitis. Patient does have a history of vancomycin usage here at [facility]. Preliminary blood culture was negative, gram stain and wound culture pending. Based on patient history I loaded patient with 2 grams IV vancomycin @1130, to be followed by a maintenance dose of 1 gram q12h starting at 2200. I scheduled a trough before the 4th dose tomorrow 01/24/19 @2100. I will continue to monitor patient and adjust dose as needed. JOANNE MILLER PHARMACY Jan 23, 2019 14:46
[2019-01-23 15:31] LABS: CALCIUM LEVEL 8.7 MG/DL (8.8-10.2); CREATININE FOR GFR 1.8 MG/DL (0.70-1.30); GLOMERULAR FILTRATION RATE 39.8 (>42); POTASSIUM SERUM 4.3 MEQ/L (3.5-5.1)
[2019-01-23 16:00] VITALS: BP 143/65
[2019-01-23] MEDS ORDERED: GLUCAGON FOR INJ 1 MG VIAL (J1610) SC PRN (16:15)
[2019-01-23] MEDS ORDERED: GLUCOSE 4 GM CHEW TABLET PO PRN (16:15)
[2019-01-23] MEDS ORDERED: DEXTROSE 50% 50 ML SYRINGE IV PRN (16:15)
[2019-01-23] MEDS: HumaLOG INSULIN (NovoLOG) PER UNIT SC SCH ×2 (16:58→20:08)
[2019-01-23 20:00] VITALS: BP 126/60
[2019-01-23] MEDS: ENOXAPARIN 40 MG/0.4 ML SYRINGE (J1650) SC SCH (20:08)
[2019-01-23] MEDS: FOLIC ACID 1 MG TAB PO SCH (20:08)
[2019-01-23] MEDS: SPIRONOLACTONE 25 MG TAB PO SCH (20:08)
[2019-01-23] MEDS: CYANOCOBALAMIN 500 MCG TAB PO SCH (20:08)
[2019-01-23] MEDS: FAMOTIDINE 20 MG TAB PO SCH (20:09)
[2019-01-23] MEDS: TERAZOSIN 1 MG CAP PO SCH (20:09)
[2019-01-24] VITALS (22 sets, daily range): BP systolic 124–203; BP diastolic 56–93; O2SAT 90–95
[2019-01-24 05:02] LABS: HEMATOCRIT 34.8 % (42.0-52.0); HEMOGLOBIN 10.8 g/dl (13.5-17.5); MEAN CORPUSCULAR HEMOGLOBIN 26.3 pg (27.0-33.0); MEAN CORPUSCULAR VOLUME 84.9 fl (80.0-96.0); PLATELET COUNT, AUTOMATED 234 10^3/uL (150-450); WHITE BLOOD COUNT 7.9 10^3/uL (4.0-10.0)
[2019-01-24 05:11] LABS: CALCIUM LEVEL 8.7 MG/DL (8.8-10.2); CREATININE FOR GFR 1.3 MG/DL (0.70-1.30); GLOMERULAR FILTRATION RATE 57.9 (>42); POTASSIUM SERUM 3.6 MEQ/L (3.5-5.1)
[2019-01-24] MEDS: LEVOTHYROXINE 100MCG TABLET (0.1MG) PO SCH (06:00)
[2019-01-24] MEDS: SLF 3 ML SYR IV SCH ×3 (06:01→20:48)
[2019-01-24] MEDS: FUROSEMIDE 40 MG/4 ML VIAL (J1940) IV SCH ×3 (08:00→15:00)
[2019-01-24] MEDS: FERROUS SULFATE 325MG TAB PO SCH ×2 (08:42→20:48)
[2019-01-24] MEDS: ASPIRIN 81 MG ENTERIC TAB PO SCH (08:42)
[2019-01-24] MEDS: POTASSIUM CITRATE 1080 MG (10MEQ) TAB PO SCH ×3 (08:42→17:18)
[2019-01-24] MEDS: VITAMIN D 1,000 INTERNATIONAL UNITS TABLET PO SCH (08:42)
[2019-01-24] MEDS: ALLOPURINOL 300 MG TAB PO SCH (08:42)
[2019-01-24] MEDS: ATENOLOL 50 MG TAB PO SCH (08:44)
[2019-01-24] MEDS: HumaLOG INSULIN (NovoLOG) PER UNIT SC SCH ×4 (08:44→20:48)
[2019-01-24] MEDS: NYSTATIN 100,000 UNITS/GM TOPICAL PWD 15 GM TOP SCH ×2 (08:44→20:47)
[2019-01-24] MEDS: LEVEMIR (INSULIN DETEMIR) 1 UNITS/0.01ML SC SCH ×2 (08:45→20:48)
[2019-01-24] MEDS: VANCOMYCIN HCL 1,000 MG, VIAL MATE ADAPTER 1 EACH in D5W 250 ML IV SCH ×2 (10:13→22:03)
--- NOTE | 2019-01-24 11:13 | IPNPDOC ---
Text Note Date of Service The patient was seen on 01/24/19. NOTE Subjective: Patient was seen and examined at the bedside. Patient reports that his breathing is doing better. He denies any chest pain or palpitations. Denies any s ignificant cough. Denies nausea, vomiting, abdominal pain. Consultation diarrhea. Patient does report that his leg swelling has improved, and notes that the redness of his legs has improved as well. Objective: Vitals (See below) General: Lying in bed, no acute distress, comfortable, AAOx3 HEENT: NC, AT CVS: RRR, +S1S2 Lungs: Fair air entry b/l, auscultation without rhonchi, rales or wheezing Abdomen: Soft, nondistended, nontender, Morbid obesity Extremities: 2+ pitting edema bilaterally, - Calf tenderness, leg erythema has improved, chronic stasis changes remain, area of drainage persist IMAGIN. Chest X-ray 01/20: -Bibasilar atelectasis/infiltrate (right greater than left) -Cannot exclude associated pulmonary vascular congestion. 2. Vascular Ultrasound 01/20: No evidence for deep venous thrombosis. Assessment and plan: ASSESSMENT AND PLAN: This is a 73-year-old male with a past medical history of HTN, DM, hypothyroidism, GERD, CKD, diastolic congestive heart failure, MONTSERRAT who is non-compliant with C-PAP, morbid obesity who presented with shortness of breath. Decompensated Diastolic CHF 2/2 Dietary Indiscretion - He has reported improvement in his leg swelling - Physical exam with evidence of gross overload - As remained negative fluid balance at 11.3 L - ECHO noted - c/w Fluid restriction, I/Os, daily weights - c/w Furosemide - Will resume diuresis today Bilateral leg erythema - possibly 2/2 cellulitis - Patient has a history of MRSA wound infections - c/w Vancomycin s/p Keflex; (Antibiotic day #2) s/p Acute metabolic encephalopathy - likely 2/2 hypercarbia - Oriented to person / place / time - no focal deficits noted Hypercarbia 2/2 MONTSERRAT - Patient non-compliant with CPAP device at home, and with underlying decompensated CHF with contraction metabolic alkalosis from IV diuresis not completely compensatory of aforementioned hypercarbia (pH 7.33) - s/p BIPAP - c/w table top CPAP - Unknown baseline CO2; repeat ABGs have shown improvement in CO2 retention - Pulmonary on consultation Obstructive Sleep Apnea - Pulmonary/Respiratory therapy on board to titrate CPAP settings; has been transitioned to table top CPAP - We will put the patient on continuous pulse oximetry, MONTSERRAT Protocol Diabetes mellitus - c/w Levemir and ISS Hypertension - c/w Furosemide, Spironolactone and Atenolol Hypothyroidism - c/w levothyroxine Iron deficiency anemia - c/w ferrous sulfate Gout - c/w allopurinol Constipation - c/w Senokot Pulmonary hypertension - Likely secondary to morbid obesity and MONTSERRAT Morbid obesity, noncompliance - Complicating medical care History of colon cancer/status post partial colectomy 2002 -Follow up as outpatient GERD - c/w Famotidine DVT prophylaxis - c/w Lovenox Disposition: - Will downgrade to PCU today VS,Per, I+O VS, Leticiae, I+O Laboratory Tests 01/23/19 14:44 Calcium Level 8.7 L 01/24/19 04:27 Calcium Level 8.7 L, Red Blood Count 4.10 L, Mean Corpuscular Volume 84.9, Mean Corpuscular Hemoglobin 26.3 L, Mean Corpuscular Hemoglobin Concent 31.0 L, Red Cell Distribution Width 16.1 H Vital Signs Date Time Temp Pulse Resp B/P (MAP) Pulse Ox O2 Delivery O2 Flow Rate FiO2 01/24/19 08:48 79 136/63 (87) 91 2.0 01/24/19 07:55 98.5 20 01/24/19 04:00 BIPAP/CPAP 01/22/19 08:00 30 I&O- Last 24 Hours up to 6 AM 01/24/19 06:00 Intake Total 3350 ml Output Total 3420 ml Balance -70 ml ELI BRAVO MD Jan 24, 2019 11:13
[2019-01-24] MEDS: ENOXAPARIN 40 MG/0.4 ML SYRINGE (J1650) SC SCH (20:47)
[2019-01-24] MEDS: SPIRONOLACTONE 25 MG TAB PO SCH (20:48)
[2019-01-24] MEDS: CYANOCOBALAMIN 500 MCG TAB PO SCH (20:48)
[2019-01-24] MEDS: FAMOTIDINE 20 MG TAB PO SCH (20:49)
[2019-01-24] MEDS: TERAZOSIN 1 MG CAP PO SCH (20:49)
[2019-01-24] MEDS: FOLIC ACID 1 MG TAB PO SCH (20:49)
--- NOTE | 2019-01-24 21:34 | PHACANCOPD ---
PHARMACY VANCOMYCIN DOSING Pt Demographics Demographics Patient Age:73 , Weight:168.100 , Gender: male Adjusted Body Weight Date: 01/23/19, Adjusted Body Weight: [115.34] Kg Events Past 24 Hours Events Past 24 Hours: NO: Dialysis, Diuretic Therapy, Change in CrCl, Fever, Elevation in WBC, Pending Diagnostics, Pending Procedures, Other Vancomycin Vancomycin Target Ranges: 10-20 mcg/ml Vancomycin Load Y/N: Yes Load Dose Date Time Vancomycin Load Dose: 2G IV Date: 01/23/19 Time: 1130 Vancomycin Dose Date: 01/24/19. Current Vancomycin Dose: [1G IV Q12H @ 2200] Intermittent Dosing?: No Labs Labs Item Value Date Time White Blood Count 7.9 10^3/uL 01/24/19426 Glomerular Filtration Rate 57.9 01/24/19426 Creatinine 1.30 MG/DL 01/24/19426 Blood Urea Nitrogen 21 MG/DL H 01/24/19426 Vancomycin Level Trough 15.4 UG/ML 01/24/192054 Vital Signs Label Value Date Time Patient Temperature 99.2 degrees F 01/24/191999 Temperature Source Temporal 01/24/191999 Micro Microbiology 01/20/19 Blood Culture - Preliminary, Resulted No Growth after 72 hours. All specime... 01/20/19 Blood Culture - Preliminary, Resulted No Growth after 72 hours. All specime... 01/23/19 Gram Stain - Final, Resulted 01/23/19 Wound Culture, Resulted Pending Creatinine Clearance Date:01/23/19. Creatinine Clearance: [CALCALCULATED 80 USING ABW]. Assessment and Plan Maintaining Current Dose?: Yes Reason for dose change: No Dose Change Pharmacist Note Pharmacist Note Date: 01/24/19. Pharmacist note:Trough of 15.4 is within target range. Will continue current dosing. Will continue to monitor and make adjustments as needed. SAMINA FAN PHARMACY Jan 24, 2019 21:34
[2019-01-25] VITALS (14 sets, daily range): BP systolic 111–158; BP diastolic 55–75; O2SAT 88–93
[2019-01-25] MEDS: FUROSEMIDE 40 MG/4 ML VIAL (J1940) IV SCH (00:05)
[2019-01-25 04:58] LABS: HEMATOCRIT 37.9 % (42.0-52.0); HEMOGLOBIN 11.4 g/dl (13.5-17.5); MEAN CORPUSCULAR HEMOGLOBIN 26.7 pg (27.0-33.0); MEAN CORPUSCULAR HGB CONC 30.1 g/dl (32.0-36.5); MEAN CORPUSCULAR VOLUME 88.8 fl (80.0-96.0); PLATELET COUNT, AUTOMATED 214 10^3/uL (150-450); RED BLOOD COUNT 4.27 10^6/uL (4.30-6.10); WHITE BLOOD COUNT 8.1 10^3/uL (4.0-10.0)
[2019-01-25] MEDS: LEVOTHYROXINE 100MCG TABLET (0.1MG) PO SCH (05:22)
[2019-01-25] MEDS: SLF 3 ML SYR IV SCH ×3 (05:23→20:48)
[2019-01-25 05:26] LABS: CALCIUM LEVEL 8.5 MG/DL (8.8-10.2); CREATININE FOR GFR 1.43 MG/DL (0.70-1.30); GLOMERULAR FILTRATION RATE 51.9 (>42); POTASSIUM SERUM 4.5 MEQ/L (3.5-5.1)
[2019-01-25] MEDS: LEVEMIR (INSULIN DETEMIR) 1 UNITS/0.01ML SC SCH ×2 (08:14→20:47)
[2019-01-25] MEDS: DOXYCYCLINE HYCLATE 100 MG TAB PO SCH ×2 (08:15→20:07)
[2019-01-25] MEDS: HumaLOG INSULIN (NovoLOG) PER UNIT SC SCH ×4 (08:15→20:48)
[2019-01-25] MEDS: VITAMIN D 1,000 INTERNATIONAL UNITS TABLET PO SCH (08:15)
[2019-01-25] MEDS: POTASSIUM CITRATE 1080 MG (10MEQ) TAB PO SCH ×3 (08:15→17:05)
[2019-01-25] MEDS: ATENOLOL 50 MG TAB PO SCH (08:16)
[2019-01-25] MEDS: ALLOPURINOL 300 MG TAB PO SCH (08:16)
[2019-01-25] MEDS: ASPIRIN 81 MG ENTERIC TAB PO SCH (08:17)
[2019-01-25] MEDS: NYSTATIN 100,000 UNITS/GM TOPICAL PWD 15 GM TOP SCH ×2 (08:17→20:08)
[2019-01-25] MEDS: FERROUS SULFATE 325MG TAB PO SCH ×2 (08:17→20:06)
--- NOTE | 2019-01-25 10:43 | IPNPDOC ---
Date Seen The patient was seen on 01/25/19. Progress Note SUBJECTIVE: Patient is a 73 year old male that was seen and examined sitting in a chair in a pleasant mood. Patient reports that his breathing is doing better today. He denies any chest pain or palpitations. Denies any significant cough. Denies nausea, vomiting, abdominal pain. Patient had one bout of diarrhea yesterday that has since resolved. Patient does report that his leg swelling has improved, and notes that the redness of his legs has improved as well. He admits mild tenderness to leg palpation. OBJECTIVE PHYSICAL EXAMINATION: VITAL SIGNS: Please see below. General: Sitting up watch television, no acute distress, comfortable, AAOx3 HEENT: NC, AT CVS: RRR, +S1S2 Lungs: Fair air entry b/l, auscultation without rhonchi, rales or wheezing Abdomen: Soft, nondistended, nontender, Morbid obesity Extremities: 2+ pitting edema bilaterally, -Calf tenderness, leg erythema has improved, chronic stasis changes remain, area of drainage persist LABORATORY DATA, IMAGING STUDIES, MICROBIOLOGY: Please see below. Echocardiogram: Left ventricular size upper limits of normal with mild sy mmetrical hypertrophy and preserved systolic function. Mildly dilated left atrium with impairment of LV diastolic function and mildly elevated estimated mean left atrial pressure. DVT prophylaxis ordered?: Yes, c/w Lovenox ASSESSMENT AND PLAN: This is a 73-year-old male with a past medical history of HTN, DM, hypothyroidism, GERD, CKD, diastolic congestive heart failure, [place]ERRAT who is non-compliant with C-PAP, morbid obesity who presented with shortness of breath. PROBLEMS: 1. Decompensated Diastolic CHF 2/2 Dietary Indiscretion - He has reported improvement in his leg swelling - Physical exam with evidence of gross overload - Has remained negative fluid balance at 12.5 L - ECHO noted - c/w Fluid restriction, I/Os, daily weights - D/c Lasix 01/25/19 - Changing diuretic to Torsemide - will start based on afternoon BMP (Day #1) Bilateral leg erythema - possibly 2/2 cellulitis - Wound culture tested positive for Staphylococcus aureus. - D/c vancomycin 01/25/19 - Changing antibiotic to Doxycycline s/p Acute metabolic encephalopathy - likely 2/2 hypercarbia - Oriented to person / place / time - no focal deficits noted Hypercarbia 2/2 MON[place]ERRAT - Patient non-compliant with CPAP device at home, and with underlying decompensated CHF with contraction metabolic alkalosis from IV diuresis not com pletely compensatory of aforementioned hypercarbia (pH 7.33) - s/p BIPAP - c/w table top CPAP - Unknown baseline CO2; repeat ABGs have shown improvement in CO2 retention - Pulmonary on consultation Obstructive Sleep Apnea - Pulmonary/Respiratory therapy on board to titrate CPAP settings; has been transitioned to table top CPAP - We will put the patient on continuous pulse oximetry, MONTSERRAT Protocol Diabetes mellitus - c/w Levemir and ISS Hypertension - c/w Spironolactone and Atenolol - D/C Lasix 01/25/19 Hypothyroidism - c/w levothyroxine Iron deficiency anemia - c/w ferrous sulfate Gout - c/w allopurinol Constipation - c/w Senokot Pulmonary hypertension - Likely secondary to morbid obesity and MONTSERRAT Morbid obesity, noncompliance - Complicating medical care History of colon cancer/status post partial colectomy 2002 - Follow up as outpatient GERD - c/w Famotidine DVT prophylaxis - c/w Lovenox DISPOSITION: Patient is stable and in a pleasant mood. He is ready to go home. Plan is to continue diuresis with torsemide. C/w fluid restriction and monitor. Begin doxycycline for S. aureus wound infection. VS, I&O, 24H, Fishbone Vital Signs/I&O Vital Signs Date Time Temp Pulse Resp B/P (MAP) Pulse Ox O2 Delivery O2 Flow Rate FiO2 01/25/19 09:00 93 Nasal Cannula 2.0 01/25/19 08:16 82 133/65 01/25/19 08:00 96.8 20 01/22/19 08:00 30 I&O- Last 24 Hours up to 6 AM 01/25/19 06:00 Intake Total 2100 ml Output Total 4790 ml Balance -2690 ml Laboratory Data 24H LABS Laboratory Tests 2 01/24/19 11:42: Bedside Glucose (Misc Panel) 275H 01/24/19 17:14: Bedside Glucose (Misc Panel) 209H 01/24/19 20:46: Bedside Glucose (Misc Panel) 236H 01/24/19 20:55: Vancomycin Level Trough 15.4 01/25/19 04:49: Nucleated Red Blood Cells % (auto) 0.0, Anion Gap 3L, Glomerular Filtration Rate 51.9, Blood Urea Nitrogen 21H, Creatinine 1.43H, Sodium Level 140, Potassium Level 4.5#, Chloride Level 94L, Carbon Dioxide Level 43H, Calcium Level 8.5L CBC/BMP Laboratory Tests 01/25/19 04:49 Red Blood Count 4.27 L, Mean Corpuscular Volume 88.8, Mean Corpuscular Hemoglobin 26.7 L, Mean Corpuscular Hemoglobin Concent 30.1 L, Red Cell Distribution Width 16.1 H, Calcium Level 8.5 L Microbiology Microbiology 01/20/19 Blood Culture - Preliminary, Resulted No Growth after 72 hours. All specime... 01/20/19 Blood Culture - Preliminary, Resulted No Growth after 72 hours. All specime... 01/23/19 Gram Stain - Final, Complete 01/23/19 Wound Culture - Final, Complete Staphylococcus Aureus GME ATTESTATION GME ATTESTATION My faculty preceptor for this patient encounter was physically present during the encounter and was fully available. All aspects of the patient interview, examination, medical decision making process, and medical care plan development were reviewed and approved by the faculty preceptor. The faculty preceptor is aware and concurs with the plan as stated in the body of this note and will attest to such by his/her cosignature. ATTENDING NOTE I, Christiane Bravo, have independently examined this patient and performed my own physical exam, as well as reviewed the documentation and edited where necessary. I have discussed in detail with the resident / student the findings and plan of treatment as documented by the resident / student and edited their note. I agree with their findings and treatment plan and have edited their documentation. I will continue to follow the patient during this hospital stay. BRIDGET PARR OMS-3 Jan 25, 2019 10:43 CHRISTIANE BRAVO MD Jan 25, 2019 14:14
[2019-01-25 13:43] LABS: CALCIUM LEVEL 9.1 MG/DL (8.8-10.2); CREATININE FOR GFR 1.67 MG/DL (0.70-1.30); GLOMERULAR FILTRATION RATE 43.4 (>42); POTASSIUM SERUM 4.1 MEQ/L (3.5-5.1)
[2019-01-25] MEDS: ENOXAPARIN 40 MG/0.4 ML SYRINGE (J1650) SC SCH (20:06)
[2019-01-25] MEDS: FOLIC ACID 1 MG TAB PO SCH (20:07)
[2019-01-25] MEDS: FAMOTIDINE 20 MG TAB PO SCH (20:07)
[2019-01-25] MEDS: TERAZOSIN 1 MG CAP PO SCH (20:07)
[2019-01-25] MEDS: CYANOCOBALAMIN 500 MCG TAB PO SCH (20:07)
[2019-01-25] MEDS: SPIRONOLACTONE 25 MG TAB PO SCH (20:07)
[2019-01-26] VITALS: BP 163/76; O2SAT 94
[2019-01-26 04:00] VITALS: BP 122/68
[2019-01-26] MEDS: LEVOTHYROXINE 100MCG TABLET (0.1MG) PO SCH (05:07)
[2019-01-26] MEDS: SLF 3 ML SYR IV SCH ×3 (05:07→20:07)
[2019-01-26 05:44] LABS: HEMATOCRIT 37.8 % (42.0-52.0); HEMOGLOBIN 11.3 g/dl (13.5-17.5); MEAN CORPUSCULAR HEMOGLOBIN 26.6 pg (27.0-33.0); MEAN CORPUSCULAR HGB CONC 29.9 g/dl (32.0-36.5); MEAN CORPUSCULAR VOLUME 88.9 fl (80.0-96.0); PLATELET COUNT, AUTOMATED 205 10^3/uL (150-450); RED BLOOD COUNT 4.25 10^6/uL (4.30-6.10); WHITE BLOOD COUNT 7.5 10^3/uL (4.0-10.0)
[2019-01-26 05:45] LABS: CALCIUM LEVEL 8.7 MG/DL (8.8-10.2); CREATININE FOR GFR 1.26 MG/DL (0.70-1.30); GLOMERULAR FILTRATION RATE 59.9 (>42)
[2019-01-26 08:00] VITALS: BP 130/63
[2019-01-26] MEDS: DOXYCYCLINE HYCLATE 100 MG TAB PO SCH ×2 (08:38→20:06)
[2019-01-26] MEDS: POTASSIUM CITRATE 1080 MG (10MEQ) TAB PO SCH ×3 (08:38→17:46)
[2019-01-26] MEDS: ALLOPURINOL 300 MG TAB PO SCH (08:38)
[2019-01-26] MEDS: ASPIRIN 81 MG ENTERIC TAB PO SCH (08:38)
[2019-01-26] MEDS: VITAMIN D 1,000 INTERNATIONAL UNITS TABLET PO SCH (08:39)
[2019-01-26] MEDS: ATENOLOL 50 MG TAB PO SCH (08:39)
[2019-01-26] MEDS: HumaLOG INSULIN (NovoLOG) PER UNIT SC SCH ×4 (08:40→22:20)
[2019-01-26] MEDS: FERROUS SULFATE 325MG TAB PO SCH ×2 (08:40→20:06)
[2019-01-26] MEDS: NYSTATIN 100,000 UNITS/GM TOPICAL PWD 15 GM TOP SCH ×2 (08:41→20:10)
[2019-01-26] MEDS: LEVEMIR (INSULIN DETEMIR) 1 UNITS/0.01ML SC SCH ×2 (08:41→22:21)
--- NOTE | 2019-01-26 09:46 | IPNPDOC ---
Text Note Date of Service The patient was seen on 01/26/19. NOTE Subjective: Patient was seen and examined at the bedside. Patient reports that he's feeling well. He's been tapered down to 1 L of oxygen. He denies any chest pain or palpitations. Reports that he has been working with physical therapy and has made progression notes that his lower extremity swelling has improved. Denies nausea, vomiting, abdominal pain or diarrhea Objective: Vitals (See below) General: Lying in bed, no acute distress, comfortable, AAOx3 HEENT: NC, AT CVS: RRR, +S1S2 Lungs: Air entry is fair bilaterally, without auscultated rhonchi, rales or wheezing Abdomen: Remains soft, nondistended and nontender, Morbid obesity Extremities: 1+ pitting edema bilaterally, - Calf tenderness, leg erythema has improved, chronic stasis changes remain, area of drainage persist Imagin. Chest X-ray 01/20: -Bibasilar atelectasis/infiltrate (right greater than left) -Cannot exclude associated pulmonary vascular congestion. 2. Vascular Ultrasound 01/20: No evidence for deep venous thrombosis. Assessment and plan: ASSESSMENT AND PLAN: This is a 73-year-old male with a past medical history of HTN, DM, hypothyroidism, GERD, CKD, diastolic congestive heart failure, [place]ERRAT who is non-compliant with C-PAP, morbid obesity who presented with shortness of breath. Decompensated Diastolic CHF 2/2 Dietary Indiscretion - Clinically continues to experience improvement in symptoms - Has been tapered down on supplement oxygen requirement - Physical exam with evidence of gross overload - As remained negative fluid balance at 12.9 L - ECHO noted - c/w Fluid restriction, I/Os, daily weights - Will start Torsemide today; diuresis was held yesterday 2/2 elevated Cr Bilateral leg erythema - possibly 2/2 cellulitis - Patient has a history of MRSA wound infections - c/w Doxycycline; s/p Vancomycin (Antibiotic day #3) s/p Acute metabolic encephalopathy - likely 2/2 hypercarbia - Oriented to person / place / time - no focal deficits noted Hypercarbia 2/2 [place]ERRAT - Patient non-compliant with CPAP device at home, and with underlying decompensated CHF with contraction metabolic alkalosis from IV diuresis not completely compensatory of aforementioned hypercarbia (pH 7.33) - s/p BIPAP - c/w table top CPAP - Unknown baseline CO2; repeat ABGs have shown improvement in CO2 retention - Pulmonary on consultation Obstructive Sleep Apnea - Pulmonary/Respiratory therapy on board to titrate CPAP settings; has been transitioned to table top CPAP - We will put the patient on continuous pulse oximetry, MON[place]ERRAT Protocol Diabetes mellitus - c/w Levemir and ISS Hypertension - c/w Furosemide, Spironolactone and Atenolol Hypothyroidism - c/w levothyroxine Iron deficiency anemia - c/w ferrous sulfate Gout - c/w allopurinol Constipation - c/w Senokot Pulmonary hypertension - Likely secondary to morbid obesity and MONTSERRAT Morbid obesity, noncompliance - Complicating medical care History of colon cancer/status post partial colectomy 2002 -Follow up as outpatient GERD - c/w Famotidine DVT prophylaxis - c/w Lovenox Disposition: - Will transition patient to oral diuretics - c/w PT; anticipate discharge within 24-48 hours VS,Fishbone, I+O VS, Fishbone, I+O Laboratory Tests 01/25/19 13:02 Calcium Level 9.1 01/26/19 05:07 Calcium Level 8.7 L, Red Blood Count 4.25 L, Mean Corpuscular Volume 88.9, Mean Corpuscular Hemoglobin 26.6 L, Mean Corpuscular Hemoglobin Concent 29.9 L, Red Cell Distribution Width 16.0 H Vital Signs Date Time Temp Pulse Resp B/P (MAP) Pulse Ox O2 Delivery O2 Flow Rate FiO2 01/26/19 08:39 74 130/63 01/26/19 08:00 97.6 18 91 4.0 01/26/19 00:00 BIPAP/CPAP 01/22/19 08:00 30 I&O- Last 24 Hours up to 6 AM 01/26/19 06:00 Intake Total 1370 ml Output Total 1225 ml Balance 145 ml ELI BRAVO MD Jan 26, 2019 09:46
[2019-01-26] MEDS: TORSEMIDE 20 MG TAB PO SCH ×2 (10:11→17:45)
[2019-01-26 14:00] VITALS: BP 130/61
[2019-01-26] MEDS: TERAZOSIN 1 MG CAP PO SCH (20:06)
[2019-01-26] MEDS: FOLIC ACID 1 MG TAB PO SCH (20:06)
[2019-01-26] MEDS: FAMOTIDINE 20 MG TAB PO SCH (20:06)
[2019-01-26] MEDS: CYANOCOBALAMIN 500 MCG TAB PO SCH (20:06)
[2019-01-26] MEDS: ENOXAPARIN 40 MG/0.4 ML SYRINGE (J1650) SC SCH (20:07)
[2019-01-26 22:00] VITALS: BP 121/87
[2019-01-26] MEDS: SPIRONOLACTONE 25 MG TAB PO SCH (22:19)
[2019-01-27 06:00] VITALS: BP 140/64
[2019-01-27] MEDS: SLF 3 ML SYR IV SCH ×3 (06:16→21:09)
[2019-01-27] MEDS: LEVOTHYROXINE 100MCG TABLET (0.1MG) PO SCH (06:16)
[2019-01-27 06:35] LABS: HEMATOCRIT 38.3 % (42.0-52.0); HEMOGLOBIN 11.6 g/dl (13.5-17.5); MEAN CORPUSCULAR HEMOGLOBIN 26.2 pg (27.0-33.0); MEAN CORPUSCULAR HGB CONC 30.3 g/dl (32.0-36.5); MEAN CORPUSCULAR VOLUME 86.5 fl (80.0-96.0); PLATELET COUNT, AUTOMATED 214 10^3/uL (150-450); RED BLOOD COUNT 4.43 10^6/uL (4.30-6.10); WHITE BLOOD COUNT 8.5 10^3/uL (4.0-10.0)
[2019-01-27 07:05] LABS: CALCIUM LEVEL 8.8 MG/DL (8.8-10.2); CREATININE FOR GFR 1.46 MG/DL (0.70-1.30); GLOMERULAR FILTRATION RATE 50.5 (>42)
[2019-01-27] MEDS: HumaLOG INSULIN (NovoLOG) PER UNIT SC SCH ×4 (08:02→21:06)
[2019-01-27] MEDS: VITAMIN D 1,000 INTERNATIONAL UNITS TABLET PO SCH (08:04)
[2019-01-27] MEDS: LEVEMIR (INSULIN DETEMIR) 1 UNITS/0.01ML SC SCH ×2 (08:04→21:06)
[2019-01-27] MEDS: DOXYCYCLINE HYCLATE 100 MG TAB PO SCH ×2 (08:04→21:07)
[2019-01-27] MEDS: POTASSIUM CITRATE 1080 MG (10MEQ) TAB PO SCH ×3 (08:04→17:15)
[2019-01-27] MEDS: ALLOPURINOL 300 MG TAB PO SCH (08:04)
[2019-01-27] MEDS: FERROUS SULFATE 325MG TAB PO SCH ×2 (08:05→21:07)
[2019-01-27] MEDS: ASPIRIN 81 MG ENTERIC TAB PO SCH (08:06)
[2019-01-27] MEDS: ATENOLOL 50 MG TAB PO SCH (08:06)
[2019-01-27] MEDS: NYSTATIN 100,000 UNITS/GM TOPICAL PWD 15 GM TOP SCH ×2 (08:07→21:09)
--- NOTE | 2019-01-27 09:21 | IPNPDOC ---
Text Note Date of Service The patient was seen on 01/27/19. NOTE Subjective: Patient was seen and examined at the bedside. Patient denies any problems overnight. Denies any CP, SOB or palpitations. Has been urinating without diff iculty, and has had a normal BM yesterday night. Objective: Vitals (See below) General: Lying in bed, no acute distress, comfortable, AAOx3 HEENT: NC, AT CVS: RRR, +S1S2 Lungs: Air entry is fair bilaterally, - w/r/r Abdomen: Remains soft, ND, NT, Morbid obesity Extremities: 1+ pitting edema bilaterally - improving, - Calf tenderness, chronic stasis changes remain, area of drainage persist/ no significant erythema Imagin. Chest X-ray 01/20: -Bibasilar atelectasis/infiltrate (right greater than left) -Cannot exclude associated pulmonary vascular congestion. 2. Vascular Ultrasound 01/20: No evidence for deep venous thrombosis. Assessment and plan: Decompensated Diastolic CHF 2/2 Dietary Indiscretion - Clinically continues to experience improvement in symptoms - Has been tapered down on supplement oxygen requirement - Physical exam with evidence of gross overload - As remained negative fluid balance at 12.9 L - ECHO noted - c/w Fluid restriction, I/Os, daily weights - Will hold diuresis today; will likely need to start lower dose of Torsemide Bilateral leg erythema - possibly 2/2 cellulitis - Patient has a history of MRSA wound infections - c/w Doxycycline; s/p Vancomycin (Antibiotic day #4) s/p Acute metabolic encephalopathy - likely 2/2 hypercarbia - Oriented to person / place / time - no focal deficits noted Hypercarbia 2/2 [place] - Patient non-compliant with CPAP device at home, and with underlying decompensated CHF with contraction metabolic alkalosis from IV diuresis not completely compensatory of aforementioned hypercarbia (pH 7.33) - s/p BIPAP - c/w table top CPAP - Unknown baseline CO2; repeat ABGs have shown improvement in CO2 retention - Pulmonary on consultation Obstructive Sleep Apnea - Pulmonary/Respiratory therapy on board to titrate CPAP settings; has been transitioned to table top CPAP - We will put the patient on continuous pulse oximetry, [place] Protocol Diabetes mellitus - c/w Levemir and ISS Hypertension - c/w Furosemide, Spironolactone and Atenolol Hypothyroidism - c/w levothyroxine Iron deficiency anemia - c/w ferrous sulfate Gout - c/w allopurinol Constipation - c/w Senokot Pulmonary hypertension - Likely secondary to morbid obesity and [place]ERRAT Morbid obesity, noncompliance - Complicating medical care History of colon cancer/status post partial colectomy 2002 -Follow up as outpatient GERD - c/w Famotidine DVT prophylaxis - c/w Lovenox Disposition: - c/w PT; anticipate discharge within 24-48 hours VS,Per, I+O VS, Per, I+O Laboratory Tests 01/27/19 05:48 Red Blood Count 4.43, Mean Corpuscular Volume 86.5, Mean Corpuscular Hemoglobin 26.2 L, Mean Corpuscular Hemoglobin Concent 30.3 L, Red Cell Distribution Width 16.2 H, Calcium Level 8.8 Vital Signs Date Time Temp Pulse Resp B/P (MAP) Pulse Ox O2 Delivery O2 Flow Rate FiO2 01/27/19 08:06 71 140/64 01/27/19 06:19 4.0 01/27/19 06:00 98.3 18 92 01/26/19 00:00 BIPAP/CPAP 01/22/19 08:00 30 I&O- Last 24 Hours up to 6 AM 01/27/19 06:00 Intake Total 1090 ml Output Total 2225 ml Balance -1135 ml ELI BRAVO MD Jan 27, 2019 09:21
[2019-01-27 14:00] VITALS: BP 150/84
[2019-01-27 21:04] VITALS: BP 150/83
[2019-01-27] MEDS: CYANOCOBALAMIN 500 MCG TAB PO SCH (21:06)
[2019-01-27] MEDS: FAMOTIDINE 20 MG TAB PO SCH (21:06)
[2019-01-27] MEDS: TERAZOSIN 1 MG CAP PO SCH (21:07)
[2019-01-27] MEDS: SPIRONOLACTONE 25 MG TAB PO SCH (21:07)
[2019-01-27] MEDS: FOLIC ACID 1 MG TAB PO SCH (21:07)
[2019-01-27] MEDS: ENOXAPARIN 40 MG/0.4 ML SYRINGE (J1650) SC SCH (21:08)
[2019-01-27 21:30] VITALS: O2SAT 93
[2019-01-28 06:00] VITALS: BP 144/71
[2019-01-28] MEDS: LEVOTHYROXINE 100MCG TABLET (0.1MG) PO SCH (06:15)
[2019-01-28] MEDS: SLF 3 ML SYR IV SCH ×3 (06:16→22:08)
[2019-01-28 08:12] LABS: BASO # 0.1 10^3/uL (0.0-0.2); BASO % 0.6 % (0.0-1.0); EOS # 0.7 10^3/uL (0.0-0.50); EOS % 8.3 % (0.0-3.0); HEMATOCRIT 38.3 % (42.0-52.0); HEMOGLOBIN 11.8 g/dl (13.5-17.5); LYMPH # 1.5 10^3/uL (1.5-4.5); LYMPH % 18.1 % (24.0-44.0); MEAN CORPUSCULAR HEMOGLOBIN 27.3 pg (27.0-33.0); MEAN CORPUSCULAR HGB CONC 30.8 g/dl (32.0-36.5); MEAN CORPUSCULAR VOLUME 88.5 fl (80.0-96.0); MONO # 0.9 10^3/uL (0.0-0.8); MONO % 11.4 % (0.0-5.0); NEUTROPHILS # 5.1 10^3/uL (1.8-7.7); NEUTROPHILS % 61.1 % (36.0-66.0); PLATELET COUNT, AUTOMATED 210 10^3/uL (150-450); RED BLOOD COUNT 4.33 10^6/uL (4.30-6.10); WHITE BLOOD COUNT 8.3 10^3/uL (4.0-10.0)
[2019-01-28 08:34] LABS: CALCIUM LEVEL 9.6 MG/DL (8.8-10.2); CREATININE FOR GFR 1.51 MG/DL (0.70-1.30); GLOMERULAR FILTRATION RATE 48.6 (>42); POTASSIUM SERUM 4.1 MEQ/L (3.5-5.1)
[2019-01-28] MEDS: NYSTATIN 100,000 UNITS/GM TOPICAL PWD 15 GM TOP SCH ×2 (09:00→22:08)
[2019-01-28] MEDS: LEVEMIR (INSULIN DETEMIR) 1 UNITS/0.01ML SC SCH ×2 (09:13→22:04)
[2019-01-28] MEDS: ASPIRIN 81 MG ENTERIC TAB PO SCH (09:14)
[2019-01-28] MEDS: POTASSIUM CITRATE 1080 MG (10MEQ) TAB PO SCH ×3 (09:14→16:59)
[2019-01-28] MEDS: HumaLOG INSULIN (NovoLOG) PER UNIT SC SCH ×4 (09:14→21:00)
[2019-01-28] MEDS: VITAMIN D 1,000 INTERNATIONAL UNITS TABLET PO SCH (09:15)
[2019-01-28] MEDS: DOXYCYCLINE HYCLATE 100 MG TAB PO SCH ×2 (09:15→22:06)
[2019-01-28] MEDS: ATENOLOL 50 MG TAB PO SCH (09:15)
[2019-01-28] MEDS: FERROUS SULFATE 325MG TAB PO SCH ×2 (09:15→22:06)
[2019-01-28] MEDS: ALLOPURINOL 300 MG TAB PO SCH (09:15)
--- NOTE | 2019-01-28 11:57 | IPNPDOC ---
Date Seen The patient was seen on 01/28/19. Progress Note SUBJECTIVE: Patient is a 74 year old male. He was examined at the bedside and had no questions about his medical care. He denies having any CP, palpitations, SOB, n/v, or diarrhea. He had a bowel movement yesterday. OBJECTIVE PHYSICAL EXAMINATION: VITAL SIGNS: Please see below. General: Lying in bed, alert, cooperative, comfortable, AAOx3 HEENT: NC, AT CVS: RRR Lungs: No rales, rhonchi, wheezes Abdomen: soft, nontender to palpation, Morbid obesity Extremities: 1+ pitting edema bilaterally that is improving, denies calf tenderness, chronic stasis changes remain, erythema is improving LABORATORY DATA, IMAGING STUDIES, MICROBIOLOGY: Please see below. 1. Chest X-ray 01/20: -Bibasilar atelectasis/infiltrate (right greater than left) -Cannot exclude associated pulmonary vascular congestion. 2. Vascular Ultrasound 01/20: No evidence for deep venous thrombosis. DVT prophylaxis ordered?: Yes, c/w lovenox ASSESSMENT AND PLAN: This is a 74 year old white male with a pmhx of CAD, migraine REBOLLEDO, Anxiety, DM, HTN, Asthma, SLE, Tremor, and Kidney stones. PROBLEMS: Decompensated Diastolic CHF 2/2 Dietary Indiscretion - Clinically continues to experience improvement in symptoms - Has been tapered down on supplement oxygen requirement - Physical exam with evidence of gross overload - As remained negative fluid balance at 12.9 L - ECHO noted - c/w Fluid restriction, I/Os, daily weights - Will hold diuresis today; c/w lower dose of torsemide tomorrow 01/29/19 due to elevated creatinine (1.51) - Begin Spironolactone tomorrow 01/29/19 Bilateral leg erythema - possibly 2/2 cellulitis - Patient has a history of MRSA wound infections - c/w Doxycycline; s/p Vancomycin (Antibiotic day #4) s/p Acute metabolic encephalopathy - likely 2/2 hypercarbia - Oriented to person / place / time - no focal deficits noted Hypercarbia 2/2 MONTSERRAT - Patient non-compliant with CPAP device at home, and with underlying decompensated CHF with contraction metabolic alkalosis from IV diuresis not completely compensatory of aforementioned hypercarbia (pH 7.33) - s/p BIPAP - c/w table top CPAP - Unknown baseline CO2; repeat ABGs have shown improvement in CO2 retention - Pulmonary on consultation - Currently on 1L O2 Nasal Cannula Obstructive Sleep Apnea - Pulmonary/Respiratory therapy on board to titrate CPAP settings; has been transitioned to table top CPAP - We will put the patient on continuous pulse oximetry, MONTSERRAT Protocol Diabetes mellitus - c/w Levemir and ISS Hypertension - c/w Atenolol Hypothyroidism - c/w levothyroxine Iron deficiency anemia - c/w ferrous sulfate Gout - c/w allopurinol Constipation - c/w Senokot Pulmonary hypertension - Likely secondary to morbid obesity and MONTSERRAT Morbid obesity, noncompliance - Complicating medical care History of colon cancer/status post partial colectomy 2002 -Follow up as outpatient GERD - c/w Famotidine DVT prophylaxis - c/w Lovenox DISPOSITION: Patient is stable and comfortable. No discharge today, transferring patient to Subacute Rehab based on PT recommendation correction, should read BiPAP not CPAP VS, I&O, 24H, Fishbone Vital Signs/I&O Vital Signs Date Time Temp Pulse Resp B/P (MAP) Pulse Ox O2 Delivery O2 Flow Rate FiO2 01/28/19 09:15 80 144/71 01/28/19 06:00 96.8 20 90 2.0 01/26/19 00:00 BIPAP/CPAP 01/22/19 08:00 30 I&O- Last 24 Hours up to 6 AM 01/28/19 05:59 Intake Total 1680 ml Output Total 850 ml Balance 830 ml Laboratory Data 24H LABS Laboratory Tests 2 01/27/19 16:36: Bedside Glucose (Misc Panel) 200H 01/27/19 20:37: Bedside Glucose (Misc Panel) 269H 01/28/19 07:00: Bedside Glucose (Misc Panel) 169H 01/28/19 07:51: Immature Granulocyte % (Auto) 0.5, White Blood Count 8.3, Red Blood Count 4.33, Hemoglobin 11.8L, Hematocrit 38.3L, Mean Corpuscular Volume 88.5, Mean Corpuscular Hemoglobin 27.3, Mean Corpuscular Hemoglobin Concent 30.8L, Red Cell Distribution Width 16.1H, Platelet Count 210, Neutrophils (%) (Auto) 61.1, Lymphocytes (%) (Auto) 18.1L, Monocytes (%) (Auto) 11.4H, Eosinophils (%) (Auto) 8.3H, Basophils (%) (Auto) 0.6, Neutrophils # (Auto) 5.1, Lymphocytes # (Auto) 1.5, Monocytes # (Auto) 0.9H, Eosinophils # (Auto) 0.7H, Basophils # (Auto) 0.1, Nucleated Red Blood Cells % (auto) 0.0, Anion Gap 1L, Glomerular Filtration Rate 48.6, Blood Urea Nitrogen 24H, Creatinine 1.51H, Sodium Level 139, Potassium Level 4.1, Chloride Level 95L, Carbon Dioxide Level 43H, Calcium Level 9.6, Magnesium Level 2.0 CBC/BMP Laboratory Tests 01/28/19 07:51 Red Blood Count 4.33, Mean Corpuscular Volume 88.5, Mean Corpuscular Hemoglobin 27.3, Mean Corpuscular Hemoglobin Concent 30.8 L, Red Cell Distribution Width 16.1 H, Neutrophils (%) (Auto) 61.1, Lymphocytes (%) (Auto) 18.1 L, Monocytes (%) (Auto) 11.4 H, Eosinophils (%) (Auto) 8.3 H, Basophils (%) (Auto) 0.6, Neutrophils # (Auto) 5.1, Lymphocytes # (Auto) 1.5, Monocytes # (Auto) 0.9 H, Eosinophils # (Auto) 0.7 H, Basophils # (Auto) 0.1, Calcium Level 9.6 Microbiology Microbiology 01/20/19 Blood Culture - Final, Complete NO GROWTH AFTER 5 DAYS 01/20/19 Blood Culture - Final, Complete NO GROWTH AFTER 5 DAYS 01/23/19 Gram Stain - Final, Complete 01/23/19 Wound Culture - Final, Complete Staphylococcus Aureus GME ATTESTATION GME ATTESTATION My faculty preceptor for this patient encounter was physically present during the encounter and was fully available. All aspects of the patient interview, examination, medical decision making process, and medical care plan development were reviewed and approved by the faculty preceptor. The faculty preceptor is aware and concurs with the plan as stated in the body of this note and will attest to such by his/her cosignature. ATTENDING NOTE I, Christiane Rae, have independently examined this patient and performed my own physical exam, as well as reviewed the documentation and edited where necessary. I have discussed in detail with the resident / student the findings and plan of treatment as documented by the resident / student and edited their note. I agree with their findings and treatment plan and have edited their documentation. I will continue to follow the patient during this hospital stay. BRIDGET PARR OMS-3 Jan 28, 2019 11:57 CHRISTIANE RAE MD Jan 28, 2019 15:28 CARISSA PAN MD Jan 31, 2019 10:40
[2019-01-28 14:00] VITALS: BP 132/60
[2019-01-28 21:30] VITALS: O2SAT 93
[2019-01-28 22:00] VITALS: BP_SYST 118; BP_SYST 136; BP_DIAS 56; BP_DIAS 88
[2019-01-28] MEDS: ENOXAPARIN 40 MG/0.4 ML SYRINGE (J1650) SC SCH (22:05)
[2019-01-28] MEDS: FAMOTIDINE 20 MG TAB PO SCH (22:05)
[2019-01-28] MEDS: FOLIC ACID 1 MG TAB PO SCH (22:05)
[2019-01-28] MEDS: TERAZOSIN 1 MG CAP PO SCH (22:05)
[2019-01-28] MEDS: CYANOCOBALAMIN 500 MCG TAB PO SCH (22:06)
[2019-01-29 06:00] VITALS: BP 128/84
[2019-01-29 06:13] LABS: BASO # 0.1 10^3/uL (0.0-0.2); BASO % 0.6 % (0.0-1.0); EOS # 0.6 10^3/uL (0.0-0.50); EOS % 7.1 % (0.0-3.0); HEMATOCRIT 38.3 % (42.0-52.0); HEMOGLOBIN 11.5 g/dl (13.5-17.5); LYMPH # 1.5 10^3/uL (1.5-4.5); LYMPH % 17.2 % (24.0-44.0); MEAN CORPUSCULAR HEMOGLOBIN 26.9 pg (27.0-33.0); MEAN CORPUSCULAR VOLUME 89.5 fl (80.0-96.0); MONO % 11.7 % (0.0-5.0); NEUTROPHILS # 5.5 10^3/uL (1.8-7.7); NEUTROPHILS % 62.9 % (36.0-66.0); PLATELET COUNT, AUTOMATED 200 10^3/uL (150-450); RED BLOOD COUNT 4.28 10^6/uL (4.30-6.10); WHITE BLOOD COUNT 8.7 10^3/uL (4.0-10.0)
[2019-01-29] MEDS: LEVOTHYROXINE 100MCG TABLET (0.1MG) PO SCH (06:25)
[2019-01-29] MEDS: SLF 3 ML SYR IV SCH ×3 (06:26→22:39)
[2019-01-29 06:31] LABS: CALCIUM LEVEL 9.5 MG/DL (8.8-10.2); CREATININE FOR GFR 1.37 MG/DL (0.70-1.30); GLOMERULAR FILTRATION RATE 54.4 (>42); MAGNESIUM LEVEL 2.1 MG/DL (1.8-2.4); POTASSIUM SERUM 3.9 MEQ/L (3.5-5.1)
[2019-01-29] MEDS: ASPIRIN 81 MG ENTERIC TAB PO SCH (08:09)
[2019-01-29] MEDS: DOXYCYCLINE HYCLATE 100 MG TAB PO SCH ×2 (08:09→22:02)
[2019-01-29] MEDS: POTASSIUM CITRATE 1080 MG (10MEQ) TAB PO SCH ×3 (08:09→16:45)
[2019-01-29] MEDS: ALLOPURINOL 300 MG TAB PO SCH (08:09)
[2019-01-29] MEDS: VITAMIN D 1,000 INTERNATIONAL UNITS TABLET PO SCH (08:09)
[2019-01-29] MEDS: FERROUS SULFATE 325MG TAB PO SCH ×2 (08:09→22:02)
[2019-01-29] MEDS: LEVEMIR (INSULIN DETEMIR) 1 UNITS/0.01ML SC SCH ×2 (08:10→22:04)
[2019-01-29] MEDS: ATENOLOL 50 MG TAB PO SCH (08:10)
[2019-01-29] MEDS: HumaLOG INSULIN (NovoLOG) PER UNIT SC SCH ×4 (08:11→22:03)
[2019-01-29] MEDS: NYSTATIN 100,000 UNITS/GM TOPICAL PWD 15 GM TOP SCH ×2 (08:11→22:02)
[2019-01-29 09:20] VITALS: O2SAT 96
[2019-01-29] MEDS: TORSEMIDE 20 MG TAB PO SCH (10:14)
[2019-01-29] MEDS ORDERED: TORS20TA2 PO (11:07)
[2019-01-29 14:00] VITALS: BP 165/65
--- NOTE | 2019-01-29 16:39 | DS.PDOC ---
Discharge Summary General Date of Admission Jan 20, 2019 at 13:22 Date of Discharge 01/29/19 Attending Physician: CARISSA PAN MD Specialist/Consultants Involve: Jude Patel MD Specialist/Consultants Involve Kelly Suero MD Discharge Summary PROCEDURES PERFORMED DURING STAY: 2D Echocardiogram: Normal sinus rhythm without intraventricular conduction disturbance. Technically challenging study in light of the patient's body habitus but diagnostically useful information was still obtained. M-mode and two-dimensional echocardiography was performed with pulsed, continuous wave, color flow and tissue Doppler studies. Left ventricular size upper limits of normal with mild symmetrical hypertrophy and preserved systolic function. Mildly dilated left atrium with impairment of LV diastolic function and mildly elevated estimated mean left atrial pressure. Moderately dilated right heart chambers with normal wall motion and Doppler evidence of at least moderate pulmonary hypertension. Moderately dilated inferior vena cava with markedly reduced respiratory collapse in keeping with an elevated central venous pressure - right heart failure. Moderate aortic valvular sclerosis with mild stenosis and mild insufficiency. Normal aortic root measurements. Mildly thickened mitral annulus, but normal leaflet excursion and no posterior systolic buckling with only trace insufficiency. Normal appearing tricuspid valve with mild insufficiency. ADMITTING DIAGNOSES: 1. Shortness of breath 2/2 CHF DISCHARGE DIAGNOSES: 1. Decompensated Diastolic CHF 2/2 Dietary Indiscretion, EF 65% 01/20/2019 2. Hypercarbia 3. MONTSERRAT 4. Diabetes mellitus 5. HTN 6. Hypothyroidism 7. Iron deficiency anemia 8. Gout 9. Constipation 10. Pulmonary HTN 11. Morbid obesity, noncompliance 12. GERD COMPLICATIONS/CHIEF COMPLAINT: shortness of breath HISTORY OF PRESENT ILLNESS: 73-year-old male with past medical history of hype rtension, diabetes, hypothyroidism, GERD, gout, chronic kidney disease stage III, grade 2 diastolic congestive heart failure, pulmonary hypertension, morbid obesity, and obstructive sleep apnea noncompliant with CPAP presented to the ER with a chief complaint of shortness of breath. The patient stated that he had been feeling excessively short of breath over the last several weeks. During this time, the patient noted that he had gained 30 pounds. He noted increased swelling in his lower extremities. He also endorsed more difficulty laying flat. The patient also stated that during this time he had been drinking four large bottles of water/soda. He denies any increase in salt intake. He denies any cough, fevers, chills, chest pain, palpitations, abdominal pain, or any nausea/vomiting/diarrhea. HOSPITAL COURSE: BNP found to be elevated, CXR showed bibasilar atelectasis & pulm vasc congest ion, pt required supplemental O2 due to desatting to low 90s and sob. He was found to be hypervolemic in decompensated CHF, started on IV diuresis. Of note, he also was found to have b/l LE erythema with concern for cellulitis, treated with Doxycycline 5 days inpatient. Doppler negative for DVT. He was noted to also be hypercarbic likely 2/2 to acute illness and baseline MONTSERRAT, noncompliant. He was placed on BiPaP in ICU for 4 days, weaned off and tolerated well. Clinically continued to experience improvement in SOB symptoms and was tapered down on supplement oxygen, downgraded out of ICU replaced with a table top CPAP. Patient was diuresed a total of 14 Liters of fluid during his stay. Patient was on fluid restriction, daily weighs, and I/O's over the duration of his stay. He worked with PT & OT and recs to continue in subacute rehab. Bed was available at [facility]. Pt was counseled on compliance, limiting salt intake and fluid to only 2L/day. He agreed to try, and f/u with PCP. DISCHARGE MEDICATIONS: Please see below. ALLERGIES: Please see below. PHYSICAL EXAMINATION ON DISCHARGE: VITAL SIGNS: Please see below. GENERAL: Patient is alert and in pleasant mood HEENT: NC AT CARDIOVASCULAR EXAMINATION: RRR, S1S2 noted RESPIRATORY EXAMINATION: No rales, rhonchi, wheezes ABDOMINAL EXAMINATION: morbid obesity, normal bowel sounds, no tenderness to palpation EXTREMITIES: 2+ pitting edema present on LE SKIN: chronic venous stasis changed b/l LE, seborrheic keratosis present on patients back NEUROLOGICAL EXAMINATION: AAOx3, no focal deficits LABORATORY DATA: Please see below. IMAGIN. Chest X-ray 01/20: -Bibasilar atelectasis/infiltrate (right greater than left) -Cannot exclude associated pulmonary vascular congestion. 2. Vascular Ultrasound 01/20: No evidence for deep venous thrombosis. PROGNOSIS: Fair ACTIVITY: As tolerated, patient mobilizes on a walker or scooter. DIET: 2 gram sodium DISPOSITION: Patient is being transferred to Subacute rehab unit. DISCHARGE INSTRUCTIONS: 1. Return to ER in case of emergency. Limit fluid intake to below 2L. Check da ang weight and call primary doctor if gain 3 lbs from the day prior or if swelling in legs continues. ITEMS TO FOLLOWUP ON ON OUTPATIENT: 1. F/U with PCP in 1 week 2. MONTSERRAT- needs new CPAP machine DISCHARGE CONDITION: Stable I saw and evaluated the patient. I agree with the findings and plan of care as documented in the note. I spent 45 minutes coordinating this patient's discharge. Vital Signs/I&Os Vital Signs Date Time Temp Pulse Resp B/P (MAP) Pulse Ox O2 Delivery O2 Flow Rate FiO2 01/29/19 09:20 96 Nasal Cannula 3.0 01/29/19 08:10 79 128/84 01/29/19 06:00 98.3 18 I&O- Last 24 Hours up to 6 AM 01/29/19 06:00 Intake Total 1420 ml Output Total 1100 ml Balance 320 ml Laboratory Data Labs 24H Laboratory Tests 2 01/28/19 20:36: Bedside Glucose (Misc Panel) 216H 01/29/19 05:38: Immature Granulocyte % (Auto) 0.5, White Blood Count 8.7, Red Blood Count 4.28L, Hemoglobin 11.5L, Hematocrit 38.3L, Mean Corpuscular Volume 89.5, Mean Corpuscular Hemoglobin 26.9L, Mean Corpuscular Hemoglobin Concent 30.0L, Red Cell Distribution Width 16.2H, Platelet Count 200, Neutrophils (%) (Auto) 62.9, Lymphocytes (%) (Auto) 17.2L, Monocytes (%) (Auto) 11.7H, Eosinophils (%) (Auto) 7.1H, Basophils (%) (Auto) 0.6, Neutrophils # (Auto) 5.5, Lymphocytes # (Auto) 1.5, Monocytes # (Auto) 1.0H, Eosinophils # (Auto) 0.6H, Basophils # (Auto) 0.1, Nucleated Red Blood Cells % (auto) 0.0, Anion Gap -8L, Glomerular Filtration Rate 54.4, Blood Urea Nitrogen 20H, Creatinine 1.37H, Sodium Level 133L, Potassium Level 3.9, Chloride Level 102, Carbon Dioxide Level 39H, Calcium Level 9.5, Magnesium Level 2.1 CBC/BMP Laboratory Tests 01/29/19 05:38 Red Blood Count 4.28 L, Mean Corpuscular Volume 89.5, Mean Corpuscular Hemoglobin 26.9 L, Mean Corpuscular Hemoglobin Concent 30.0 L, Red Cell Distribution Width 16.2 H, Neutrophils (%) (Auto) 62.9, Lymphocytes (%) (Auto) 17.2 L, Monocytes (%) (Auto) 11.7 H, Eosinophils (%) (Auto) 7.1 H, Basophils (%) (Auto) 0.6, Neutrophils # (Auto) 5.5, Lymphocytes # (Auto) 1.5, Monocytes # (Auto) 1.0 H, Eosinophils # (Auto) 0.6 H, Basophils # (Auto) 0.1, Calcium Level 9.5 FSBS Laboratory Tests Test 01/28/19 20:36 Range/Units Bedside Glucose (Misc Panel) 216 83-110 MG/DL Microbiology Microbiology 01/20/19 Blood Culture - Final, Complete NO GROWTH AFTER 5 DAYS 01/20/19 Blood Culture - Final, Complete NO GROWTH AFTER 5 DAYS 01/23/19 Gram Stain - Final, Complete 01/23/19 Wound Culture - Final, Complete Staphylococcus Aureus Discharge Medications Scheduled Allopurinol (Zyloprim) 300 Mg Tab, 300 MG PO DAILY, (Reported) Amlodipine Besylate (Amlodipine Besylate) 10 Mg Tablet, 5 MG PO DAILY, (Reported) Aspirin (Aspirin) 81 Mg Tab.chew, 81 MG PO DAILY, (Reported) Atenolol (Atenolol) 100 Mg Tablet, 100 MG PO DAILY, (Reported) Cholecalciferol (Vitamin D3) (Vitamin D3) 1,000 Unit Tab, 1,000 UNIT PO Q2D, (Reported) ALTERNATES every other day with 2 1000 unit tablets Cholecalciferol (Vitamin D3) (Vitamin D3) 1,000 Unit Tablet, 2,000 UNIT PO Q2D, (Reported) ALTERNATES WITH 1 1000 UNIT TABLET EVERY OTHER DAY Cyanocobalamin (Vitamin B-12) (Vitamin B-12) 500 Mcg Tab, 500 MCG PO QHS, (Reported) Ferrous Sulfate (Ferrous Sulfate) 325 Mg Tab, 325 MG PO BID, (Reported) Folic Acid (Folic Acid) 1 Mg Tab, 1 MG PO QHS, (Reported) Insulin Aspart (Novolog Flexpen) 100 Unit/1 Ml Insuln.pen, 30 UNITS SC ACB, (Reported) Insulin Aspart (Novolog Flexpen) 100 Unit/1 Ml Insuln.pen, 32 UNITS SC BID, (Reported) BEFORE LUNCH AND DINNER Insulin Glargine,Hum.rec.anlog (Lantus Solostar) 100 Unit/1 Ml Insuln.pen, 80 UNITS SC QHS, (Reported) Levothyroxine Sodium (Levoxyl) 200 Mcg Tab, 200 MCG PO DAILY, (Reported) Potassium Citrate (Potassium Citrate ER) 15 Meq Tab, 15 MEQ PO BID, (Reported) Ranitidine HCl (Ranitidine HCl) 300 Mg Tab, 1 TAB PO QHS, (Reported) Spironolactone (Spironolactone) 25 Mg Tab, 25 MG PO QHS, (Reported) Terazosin HCl (Terazosin HCl) 1 Mg Cap, 1 MG PO QHS, (Reported) Torsemide (Torsemide) 20 Mg Tablet, 40 MG PO DAILY Scheduled PRN Acetaminophen (Acetaminophen) 500 Mg Tablet, 500 MG PO Q4H PRN for PAIN, (Reported) Dextrose (Glucose) 4 Gm Tab.chew, 4 CHW PO PRN PRN for LOW BLOOD SUGAR, (Reported) NEEDED FOR BLOOD SUGAR BELOW 70, REPEAT BLOOD GLUCOSE TESTING IN 15 MINUTES AND RE-TREAT UNTIL ABOVE 70 Polyvinyl Alcohol (Artificial Tears) 1.4 % Мария, 1 DROP OU BID PRN for DRY EYES, (Reported) Sennosides/Docusate Sodium (Senna-S Tablet) 1 Tab Tab, 1 TAB PO BID PRN for CONSTIPATION, (Reported) Tramadol HCl (Tramadol HCl) 50 Mg Tablet, 50 MG PO QID PRN for PAIN, (Reported) Allergies Coded Allergies: codeine (Verified Allergy, Unknown, Hives, 01/20/19) BRIDGET PARR S-3 Jan 29, 2019 16:04 CARISSA PAN MD Jan 30, 2019 10:24
[2019-01-29 22:00] VITALS: BP 144/67
[2019-01-29] MEDS: FOLIC ACID 1 MG TAB PO SCH (22:01)
[2019-01-29] MEDS: FAMOTIDINE 20 MG TAB PO SCH (22:02)
[2019-01-29] MEDS: SPIRONOLACTONE 25 MG TAB PO SCH (22:02)
[2019-01-29] MEDS: ENOXAPARIN 40 MG/0.4 ML SYRINGE (J1650) SC SCH (22:03)
[2019-01-29] MEDS: CYANOCOBALAMIN 500 MCG TAB PO SCH (22:05)
[2019-01-29] MEDS: TERAZOSIN 1 MG CAP PO SCH (22:12)
[2019-01-30 03:01] VITALS: O2SAT 94
[2019-01-30 06:00] VITALS: BP 153/76
[2019-01-30] MEDS: SLF 3 ML SYR IV SCH ×3 (06:04→20:37)
[2019-01-30] MEDS: LEVOTHYROXINE 100MCG TABLET (0.1MG) PO SCH (06:04)
[2019-01-30 06:19] LABS: BASO # 0.1 10^3/uL (0.0-0.2); BASO % 0.5 % (0.0-1.0); EOS # 0.7 10^3/uL (0.0-0.50); EOS % 6.9 % (0.0-3.0); HEMATOCRIT 36.9 % (42.0-52.0); HEMOGLOBIN 11.3 g/dl (13.5-17.5); LYMPH # 1.6 10^3/uL (1.5-4.5); MEAN CORPUSCULAR HEMOGLOBIN 27.7 pg (27.0-33.0); MEAN CORPUSCULAR HGB CONC 30.6 g/dl (32.0-36.5); MEAN CORPUSCULAR VOLUME 90.4 fl (80.0-96.0); MONO # 1.1 10^3/uL (0.0-0.8); MONO % 11.8 % (0.0-5.0); NEUTROPHILS % 63.5 % (36.0-66.0); PLATELET COUNT, AUTOMATED 199 10^3/uL (150-450); RED BLOOD COUNT 4.08 10^6/uL (4.30-6.10); WHITE BLOOD COUNT 9.5 10^3/uL (4.0-10.0)
[2019-01-30 06:48] LABS: CALCIUM LEVEL 9.2 MG/DL (8.8-10.2); CREATININE FOR GFR 1.46 MG/DL (0.70-1.30); GLOMERULAR FILTRATION RATE 50.5 (>42); POTASSIUM SERUM 4.5 MEQ/L (3.5-5.1)
[2019-01-30] MEDS: HumaLOG INSULIN (NovoLOG) PER UNIT SC SCH ×4 (08:22→20:33)
[2019-01-30] MEDS: VITAMIN D 1,000 INTERNATIONAL UNITS TABLET PO SCH (08:23)
[2019-01-30] MEDS: FERROUS SULFATE 325MG TAB PO SCH ×2 (08:23→20:34)
[2019-01-30] MEDS: ALLOPURINOL 300 MG TAB PO SCH (08:23)
[2019-01-30] MEDS: ASPIRIN 81 MG ENTERIC TAB PO SCH (08:23)
[2019-01-30] MEDS: ATENOLOL 50 MG TAB PO SCH (08:24)
[2019-01-30] MEDS: LEVEMIR (INSULIN DETEMIR) 1 UNITS/0.01ML SC SCH ×2 (08:24→20:34)
[2019-01-30] MEDS: NYSTATIN 100,000 UNITS/GM TOPICAL PWD 15 GM TOP SCH ×2 (08:25→20:37)
[2019-01-30] MEDS: POTASSIUM CITRATE 1080 MG (10MEQ) TAB PO SCH ×3 (08:38→18:50)
[2019-01-30 09:00] VITALS: O2SAT 94
--- NOTE | 2019-01-30 13:56 | IPNPDOC ---
Date Seen The patient was seen on 01/30/19. Progress Note SUBJECTIVE: Patient is a 74 year old male with a PMHX of hypertension, diabetes, Hypothyroidism, GERD, Gout, Grade 3 Chronic Kidney disease, Grade 2 diastolic heart failure, pulmonary hypertension, obesity, obstructive sleep apnea. Patient was examined at bedside. He was in a pleasant mood and cooperative. He stated that he has noticed burning on urination on and off over the last few days that is worse when he voids a small amount of urine. He also admits to having loose stools on three occasions yesterday. He denies any acute pain, CP, palpitations, SOB, or n/v. OBJECTIVE PHYSICAL EXAMINATION: VITAL SIGNS: Please see below. GENERAL: Patient is alert and cooperative HEENT: NC AT CARDIOVASCULAR: RRR, S1S2 RESPIRATORY: air entry equal bilaterally. no wheezes, rales, or rhonchi noted. ABDOMINAL: morbid obesity noted, abdomen is nontender. EXTREMITIES: pitting edema noted B/L, venous stasis changes present on anterior portion of lower legs. NEUROLOGICAL: AAOx3 LABORATORY DATA, IMAGING STUDIES, MICROBIOLOGY: Please see below. 1. Chest X-ray 01/20: -Bibasilar atelectasis/infiltrate (right greater than left) -Cannot exclude associated pulmonary vascular congestion. 2. Vascular Ultrasound 01/20: No evidence for deep venous thrombosis. Echocardiogram: Yes, 01/20/19 DVT prophylaxis ordered?: yes, c/w lovenox ASSESSMENT AND PLAN: Patient is a 74 year old male with a PMHX of hypertension, diabetes, Hypothyroidism, GERD, Gout, Grade 3 Chronic Kidney disease, Grade 2 diastolic heart failure, pulmonary hypertension, obesity, obstructive sleep apnea. PROBLEMS: Decompensated Diastolic CHF 2/2 Dietary Indiscretion - Clinically continues to experience improvement in symptoms - Has been tapered down on supplement oxygen requirement - Physical exam with evidence of gross overload - As remained negative fluid balance at 12.9 L - ECHO noted - c/w Fluid restriction, I/Os, daily weights - Patient will continue to be diuresed Bilateral leg erythema - possibly 2/2 cellulitis - Patient has a history of MRSA wound infections - c/w Doxycycline; s/p Vancomycin (Antibiotic day #4) s/p Acute metabolic encephalopathy - likely 2/2 hypercarbia - Oriented to person / place / time - no focal deficits noted Hypercarbia 2/2 MONTSERRAT - Patient non-compliant with CPAP device at home, and with underlying decompensated CHF with contraction metabolic alkalosis from IV diuresis not com pletely compensatory of aforementioned hypercarbia (pH 7.33) - s/p BIPAP - c/w table top CPAP - Unknown baseline CO2; repeat ABGs have shown improvement in CO2 retention - Pulmonary on consultation - Currently on 1L O2 Nasal Cannula Obstructive Sleep Apnea - Pulmonary/Respiratory therapy on board to titrate CPAP settings; has been transitioned to table top CPAP - We will put the patient on continuous pulse oximetry, MONTSERRAT Protocol Diabetes mellitus - c/w Levemir and ISS Hypertension - c/w Atenolol Hypothyroidism - c/w levothyroxine Iron deficiency anemia - c/w ferrous sulfate Gout - c/w allopurinol Constipation - c/w Senokot Pulmonary hypertension - Likely secondary to morbid obesity and MONTSERRAT Morbid obesity, noncompliance - Complicating medical care History of colon cancer/status post partial colectomy 2002 -Follow up as outpatient GERD - c/w Famotidine DISPOSITION: Patient is stable and comfortable. Discharge delayed yesterday to today become of rooming at subacute rehab unit. Patient is going to [facility]. I saw and evaluated the patient. I agree with the findings and plan of care as documented in the resident's note Patient's disposition was held yesterday due to the lack of a contact isolation room. Disposition held once again today due to a lack of BiPAP machine available, efforts are made by nursing staff to contact respiratory to see if he may be allowed to take his current BiPAP machine with him within the [facility] network no answers been provided at this time. VS, I&O, [facility]H, [facility] Vital Signs/I&O Vital Signs Date Time Temp Pulse Resp B/P (MAP) Pulse Ox O2 Delivery O2 Flow Rate FiO2 01/30/19 09:00 94 BIPAP/CPAP 3.0 01/30/19 08:24 68 153/76 01/30/19 06:00 98.0 17 I&O- Last 24 Hours up to 6 AM 01/30/19 06:00 Intake Total 1500 ml Output Total 2275 ml Balance -775 ml Laboratory Data 24H LABS Laboratory Tests 2 01/29/19 16:39: Bedside Glucose (Misc Panel) 218H 01/29/19 20:41: Bedside Glucose (Misc Panel) 271H 01/30/19 05:59: Immature Granulocyte % (Auto) 0.3, White Blood Count 9.5, Red Blood Count 4.08L, Hemoglobin 11.3L, Hematocrit 36.9L, Mean Corpuscular Volume 90.4, Mean Corpuscular Hemoglobin 27.7, Mean Corpuscular Hemoglobin Concent 30.6L, Red Cell Distribution Width 16.0H, Platelet Count 199, Neutrophils (%) (Auto) 63.5, Lymphocytes (%) (Auto) 17.0L, Monocytes (%) (Auto) 11.8H, Eosinophils (%) (Auto) 6.9H, Basophils (%) (Auto) 0.5, Neutrophils # (Auto) 6.0, Lymphocytes # (Auto) 1.6, Monocytes # (Auto) 1.1H, Eosinophils # (Auto) 0.7H, Basophils # (Auto) 0.1, Nucleated Red Blood Cells % (auto) 0.0, Anion Gap 2L, Glomerular Filtration Rate 50.5, Blood Urea Nitrogen 27H, Creatinine 1.46H, Sodium Level 139, Potassium Level 4.5, Chloride Level 98, Carbon Dioxide Level 39H, Calcium Level 9.2, Magnesium Level 2.0 01/30/19 12:37: Bedside Glucose (Misc Panel) 196H CBC/BMP Laboratory Tests 01/30/19 05:59 Red Blood Count 4.08 L, Mean Corpuscular Volume 90.4, Mean Corpuscular Hemoglobin 27.7, Mean Corpuscular Hemoglobin Concent 30.6 L, Red Cell Distribution Width 16.0 H, Neutrophils (%) (Auto) 63.5, Lymphocytes (%) (Auto) 17.0 L, Monocytes (%) (Auto) 11.8 H, Eosinophils (%) (Auto) 6.9 H, Basophils (%) (Auto) 0.5, Neutrophils # (Auto) 6.0, Lymphocytes # (Auto) 1.6, Monocytes # (Auto) 1.1 H, Eosinophils # (Auto) 0.7 H, Basophils # (Auto) 0.1, Calcium Level 9.2 Microbiology Microbiology 01/20/19 Blood Culture - Final, Complete NO GROWTH AFTER 5 DAYS 01/20/19 Blood Culture - Final, Complete NO GROWTH AFTER 5 DAYS 01/23/19 Gram Stain - Final, Complete 01/23/19 Wound Culture - Final, Complete Staphylococcus Aureus BRIDGET PARR S-3 Jan 30, 2019 13:55 CARISSA PAN MD Jan 30, 2019 15:49
[2019-01-30 14:00] VITALS: BP 124/70
[2019-01-30] MEDS: FOLIC ACID 1 MG TAB PO SCH (20:34)
[2019-01-30] MEDS: ENOXAPARIN 40 MG/0.4 ML SYRINGE (J1650) SC SCH (20:34)
[2019-01-30] MEDS: FAMOTIDINE 20 MG TAB PO SCH (20:34)
[2019-01-30] MEDS: CYANOCOBALAMIN 500 MCG TAB PO SCH (20:34)
[2019-01-30] MEDS: TERAZOSIN 1 MG CAP PO SCH (20:36)
[2019-01-30 22:00] VITALS: BP 148/70
[2019-01-31 01:52] VITALS: O2SAT 93
[2019-01-31] MEDS: LEVOTHYROXINE 100MCG TABLET (0.1MG) PO SCH (05:31)
[2019-01-31] MEDS: SLF 3 ML SYR IV SCH ×3 (05:31→21:34)
[2019-01-31 06:00] VITALS: BP 145/75
[2019-01-31 06:18] LABS: BASO % 0.5 % (0.0-1.0); EOS # 0.7 10^3/uL (0.0-0.50); HEMATOCRIT 37.4 % (42.0-52.0); HEMOGLOBIN 11.2 g/dl (13.5-17.5); LYMPH # 1.3 10^3/uL (1.5-4.5); LYMPH % 15.7 % (24.0-44.0); MEAN CORPUSCULAR HGB CONC 29.9 g/dl (32.0-36.5); MONO # 0.8 10^3/uL (0.0-0.8); MONO % 9.6 % (0.0-5.0); NEUTROPHILS # 5.3 10^3/uL (1.8-7.7); NEUTROPHILS % 65.7 % (36.0-66.0); PLATELET COUNT, AUTOMATED 216 10^3/uL (150-450); WHITE BLOOD COUNT 8.1 10^3/uL (4.0-10.0)
[2019-01-31 06:48] LABS: CALCIUM LEVEL 9.3 MG/DL (8.8-10.2); CREATININE FOR GFR 1.39 MG/DL (0.70-1.30); GLOMERULAR FILTRATION RATE 53.5 (>42); MAGNESIUM LEVEL 2.2 MG/DL (1.8-2.4); POTASSIUM SERUM 4.1 MEQ/L (3.5-5.1)
[2019-01-31] MEDS: HumaLOG INSULIN (NovoLOG) PER UNIT SC SCH ×4 (08:50→21:00)
[2019-01-31] MEDS: ATENOLOL 50 MG TAB PO SCH (08:51)
[2019-01-31] MEDS: LEVEMIR (INSULIN DETEMIR) 1 UNITS/0.01ML SC SCH ×2 (08:51→21:33)
[2019-01-31] MEDS: VITAMIN D 1,000 INTERNATIONAL UNITS TABLET PO SCH (08:51)
[2019-01-31] MEDS: ALLOPURINOL 300 MG TAB PO SCH (08:51)
[2019-01-31] MEDS: POTASSIUM CITRATE 1080 MG (10MEQ) TAB PO SCH ×3 (08:51→17:12)
[2019-01-31] MEDS: FERROUS SULFATE 325MG TAB PO SCH ×2 (08:51→21:32)
[2019-01-31] MEDS: ASPIRIN 81 MG ENTERIC TAB PO SCH (08:51)
[2019-01-31] MEDS: NYSTATIN 100,000 UNITS/GM TOPICAL PWD 15 GM TOP SCH ×2 (08:52→21:34)
[2019-01-31 14:00] VITALS: BP 142/67
--- NOTE | 2019-01-31 18:27 | IPNPDOC ---
Text Note Date of Service The patient was seen on 01/31/19. NOTE SUBJECTIVE: Mr. Chew sitting up in chair, no events overnight or changes from yesterday. D/C delayed since [facility] has to secure a BIPAP machine for pt. He does not have one at home, and it is unclear when one will become available. PHYSICAL EXAMINATION: VITAL SIGNS: Please see below. GENERAL: Patient is alert and cooperative HEENT: NC AT CARDIOVASCULAR: RRR, S1S2 RESPIRATORY: air entry equal bilaterally. Minimal rales on rt lower base, otherwise clear ABDOMINAL: morbid obesity noted, abdomen is nontender. EXTREMITIES: 1-2+ pitting edema noted B/L, venous stasis changes present on anterior portion of lower legs. NEUROLOGICAL: AAOx3 LABORATORY DATA, IMAGING STUDIES, MICROBIOLOGY: Please see below. DVT prophylaxis ordered?: yes, c/w lovenox ASSESSMENT AND PLAN: 74 year old male treated for decompensated CHF, currently awaiting BIPAP machine at [facility]. Plan to d/c to subacute rehab there when machine becomes available. Unduer when this will be. Continue monitoring in meanwhile. --Decompensated Diastolic CHF 2/2 Dietary Indiscretion Feels close to baseline clinically. Overall diuresed ~13L. Titrate down O2 as tolerated-none at baseline, but requiring 1-3L today. --Bilateral leg erythema Concern of possible cellulitis on admission with hx of MRSA wound infections. Is s/p 5 days Doxycycline. No signs of infection currently. --Acute on chronic hypercarbia & hypoxemia likely 2/2 decompensated CHF & baseline noncompliant MONTSERRAT. Improving with diuresis & s/p BiPAP. Titrate down O2 supplement & continue BiPAP at night as per Pulm. --Obstructive Sleep Apnea Pulmonary/Respiratory titrated settings for BiPAP. Awaiting [facility] to secure machine for d/c to their subacute rehab --Diabetes mellitus Levemir and ISS Hypertension - c/w Atenolol Hypothyroidism - c/w levothyroxine Iron deficiency anemia - c/w ferrous sulfate Gout - c/w allopurinol Constipation - c/w Senokot Pulmonary hypertension - Likely secondary to morbid obesity and MONTSERRAT Morbid obesity, noncompliance - Complicating medical care History of colon cancer/status post partial colectomy 2002 -Follow up as outpatient GERD - c/w Famotidine DISPOSITION: Pt discharge delayed as [facility] works to secure BiPAP. Unsure when this will be. Pt is otherwise stable & doing well. Will continue reaching out to follow up on this. I saw and evaluated the patient. I agree with the findings and plan of care as documented in the documenters note. I spent 45 minutes coordinating this patient's discharge. VS,Fishbone, I+O VS, Fishbone, I+O Laboratory Tests 01/31/19 05:53 Red Blood Count 4.30, Mean Corpuscular Volume 87.0, Mean Corpuscular Hemoglobin 26.0 L, Mean Corpuscular Hemoglobin Concent 29.9 L, Red Cell Distribution Width 15.9 H, Neutrophils (%) (Auto) 65.7, Lymphocytes (%) (Auto) 15.7 L, Monocytes (%) (Auto) 9.6 H, Eosinophils (%) (Auto) 8.0 H, Basophils (%) (Auto) 0.5, Neutrophils # (Auto) 5.3, Lymphocytes # (Auto) 1.3 L, Monocytes # (Auto) 0.8, Eosinophils # (Auto) 0.7 H, Basophils # (Auto) 0.0, Calcium Level 9.3 Vital Signs Date Time Temp Pulse Resp B/P (MAP) Pulse Ox O2 Delivery O2 Flow Rate FiO2 01/31/19 17:12 90 1.0 01/31/19 08:51 79 157/64 01/31/19 06:00 98.6 19 01/31/19 01:52 BIPAP/CPAP I&O- Last 24 Hours up to 6 AM 01/31/19 06:00 Intake Total 1550 ml Output Total 1150 ml Balance 400 ml MATIAS RAI DO Jan 31, 2019 18:27 CARISSA PAN MD Feb 01, 2019 14:58
[2019-01-31] MEDS: FAMOTIDINE 20 MG TAB PO SCH (21:32)
[2019-01-31] MEDS: FOLIC ACID 1 MG TAB PO SCH (21:32)
[2019-01-31] MEDS: TERAZOSIN 1 MG CAP PO SCH (21:32)
[2019-01-31] MEDS: CYANOCOBALAMIN 500 MCG TAB PO SCH (21:32)
[2019-01-31] MEDS: ENOXAPARIN 40 MG/0.4 ML SYRINGE (J1650) SC SCH (21:33)
[2019-01-31 22:00] VITALS: BP 148/69
[2019-02-01] MEDS: SLF 3 ML SYR IV SCH ×3 (05:31→22:00)
[2019-02-01] MEDS: LEVOTHYROXINE 100MCG TABLET (0.1MG) PO SCH (05:31)
[2019-02-01 06:00] VITALS: BP 144/66
[2019-02-01 06:14] LABS: BASO # 0.1 10^3/uL (0.0-0.2); BASO % 0.9 % (0.0-1.0); EOS # 0.6 10^3/uL (0.0-0.50); HEMATOCRIT 36.7 % (42.0-52.0); HEMOGLOBIN 11.2 g/dl (13.5-17.5); LYMPH # 1.5 10^3/uL (1.5-4.5); LYMPH % 18.4 % (24.0-44.0); MEAN CORPUSCULAR HEMOGLOBIN 26.4 pg (27.0-33.0); MEAN CORPUSCULAR HGB CONC 30.5 g/dl (32.0-36.5); MEAN CORPUSCULAR VOLUME 86.4 fl (80.0-96.0); MONO # 0.9 10^3/uL (0.0-0.8); MONO % 11.4 % (0.0-5.0); NEUTROPHILS # 4.8 10^3/uL (1.8-7.7); NEUTROPHILS % 60.8 % (36.0-66.0); PLATELET COUNT, AUTOMATED 212 10^3/uL (150-450); RED BLOOD COUNT 4.25 10^6/uL (4.30-6.10); WHITE BLOOD COUNT 7.9 10^3/uL (4.0-10.0)
[2019-02-01 06:41] LABS: BLOOD UREA NITROGEN 22 MG/DL (7-18); CALCIUM LEVEL 8.6 MG/DL (8.8-10.2); CARBON DIOXIDE LEVEL 37 MEQ/L (21-32); CHLORIDE LEVEL 101 MEQ/L (98-107); CREATININE FOR GFR 1.13 MG/DL (0.70-1.30); GLOMERULAR FILTRATION RATE > 60.0 (>42); GLUCOSE, FASTING 163 MG/DL (70-100); POTASSIUM SERUM 4.3 MEQ/L (3.5-5.1); SODIUM LEVEL 141 MEQ/L (136-145)
[2019-02-01] MEDS: LEVEMIR (INSULIN DETEMIR) 1 UNITS/0.01ML SC SCH ×2 (08:02→22:18)
[2019-02-01] MEDS: VITAMIN D 1,000 INTERNATIONAL UNITS TABLET PO SCH (08:03)
[2019-02-01] MEDS: ASPIRIN 81 MG ENTERIC TAB PO SCH (08:03)
[2019-02-01] MEDS: POTASSIUM CITRATE 1080 MG (10MEQ) TAB PO SCH ×3 (08:03→17:28)
[2019-02-01] MEDS: HumaLOG INSULIN (NovoLOG) PER UNIT SC SCH ×4 (08:03→22:18)
[2019-02-01] MEDS: NYSTATIN 100,000 UNITS/GM TOPICAL PWD 15 GM TOP SCH ×2 (08:04→22:17)
[2019-02-01] MEDS: ALLOPURINOL 300 MG TAB PO SCH (08:04)
[2019-02-01] MEDS: ATENOLOL 50 MG TAB PO SCH (08:04)
[2019-02-01] MEDS: FERROUS SULFATE 325MG TAB PO SCH ×2 (08:04→22:19)
[2019-02-01] MEDS: TORSEMIDE 20 MG TAB PO SCH (09:30)
[2019-02-01 14:00] VITALS: BP 126/61
[2019-02-01 22:00] VITALS: BP 139/69
[2019-02-01] MEDS: ENOXAPARIN 40 MG/0.4 ML SYRINGE (J1650) SC SCH (22:17)
[2019-02-01] MEDS: FOLIC ACID 1 MG TAB PO SCH (22:19)
[2019-02-01] MEDS: FAMOTIDINE 20 MG TAB PO SCH (22:19)
[2019-02-01] MEDS: CYANOCOBALAMIN 500 MCG TAB PO SCH (22:19)
[2019-02-01] MEDS: TERAZOSIN 1 MG CAP PO SCH (22:20)
[2019-02-01] MEDS: SPIRONOLACTONE 25 MG TAB PO SCH (22:20)
--- NOTE | 2019-02-01 22:52 | IPNPDOC ---
Text Note Date of Service The patient was seen on 02/01/19. NOTE SUBJECTIVE: Mr. Chew examined at bedside. No new complaints or changes from prior few days. Is eager to go to subacute rehab, but awaiting BiPAP maching to be secured. Of note, he is titrating down on O2, at 1L NC today form 3L before. No f/c/n/v/abd pain/cp/sob. PHYSICAL EXAMINATION: VITAL SIGNS: Please see below. GENERAL: Patient is alert and cooperative HEENT: NC AT CARDIOVASCULAR: RRR, S1S2 RESPIRATORY: air entry equal bilaterally. Minimal rales on rt lower base, otherwise clear ABDOMINAL: morbid obesity noted, abdomen is nontender. EXTREMITIES: 1-2+ pitting edema noted B/L, venous stasis changes present on anterior portion of lower legs. NEUROLOGICAL: AAOx3 LABORATORY DATA, IMAGING STUDIES, MICROBIOLOGY: Please see below. DVT prophylaxis ordered?: yes, c/w lovenox ASSESSMENT AND PLAN: 74 year old male treated for decompensated CHF, currently awaiting BIPAP machine at [facility]. Plan to d/c to subacute rehab there when machine becomes available. Unclear when this will be. Continue monitoring in meanwhile. --Decompensated Diastolic CHF 2/2 Dietary Indiscretion Feels close to baseline clinically. Overall diuresed ~13L. Titrate down O2 as tolerated-none at baseline, but requiring 1-3L recently. --Bilateral leg erythema Concern of possible cellulitis on admission with hx of MRSA wound infections. Is s/p 5 days Doxycycline. No signs of infection currently. --Acute on chronic hypercarbia & hypoxemia likely 2/2 decompensated CHF & baseline noncompliant MONTSERRAT. Improving with diuresis & s/p BiPAP. Titrate down O2 supplement & continue BiPAP at night as per Pulm. --Obstructive Sleep Apnea Pulmonary/Respiratory titrated settings for BiPAP. Awaiting [facility] to secure machine for d/c to their subacute rehab --Diabetes mellitus Levemir and ISS Hypertension - c/w Atenolol Hypothyroidism - c/w levothyroxine Iron deficiency anemia - c/w ferrous sulfate Gout - c/w allopurinol Constipation - c/w Senokot Pulmonary hypertension - Likely secondary to morbid obesity and MONTSERRAT Morbid obesity, noncompliance - Complicating medical care History of colon cancer/status post partial colectomy 2002 -Follow up as outpatient GERD - c/w Famotidine DISPOSITION: Still waiting on BiPAP machine to be available at [facility], thus delaying discharge. No set date for dc currently. Will continue our best efforts to reach out to the facility to get Mr. Chew to subacute rehab as soon as BiPAP machine is secured. He is otherwise stable & felling well. I saw and evaluated the patient. I agree with the findings and plan of care as documented in the above note VS,Per, I+O VS, Per, I+O Laboratory Tests 02/01/19 05:39 Red Blood Count 4.25 L, Mean Corpuscular Volume 86.4, Mean Corpuscular Hemoglobin 26.4 L, Mean Corpuscular Hemoglobin Concent 30.5 L, Red Cell Distribution Width 16.0 H, Neutrophils (%) (Auto) 60.8, Lymphocytes (%) (Auto) 18.4 L, Monocytes (%) (Auto) 11.4 H, Eosinophils (%) (Auto) 8.0 H, Basophils (%) (Auto) 0.9, Neutrophils # (Auto) 4.8, Lymphocytes # (Auto) 1.5, Monocytes # (Auto) 0.9 H, Eosinophils # (Auto) 0.6 H, Basophils # (Auto) 0.1, Calcium Level 8.6 L Vital Signs Date Time Temp Pulse Resp B/P (MAP) Pulse Ox O2 Delivery O2 Flow Rate FiO2 02/01/19 22:20 149/69 02/01/19 14:00 97.9 67 18 97 1.0 01/31/19 01:52 BIPAP/CPAP I&O- Last 24 Hours up to 6 AM 02/01/19 06:00 Intake Total 1020 ml Output Total 1200 ml Balance -180 ml MATIAS RAI DO Feb 01, 2019 22:52 CARISSA PAN MD Feb 13, 2019 15:40
[2019-02-02 06:00] VITALS: BP 133/76
[2019-02-02] MEDS: SLF 3 ML SYR IV SCH ×3 (06:00→21:47)
[2019-02-02] MEDS: LEVOTHYROXINE 100MCG TABLET (0.1MG) PO SCH (06:10)
[2019-02-02 07:23] LABS: BASO # 0.1 10^3/uL (0.0-0.2); BASO % 0.7 % (0.0-1.0); EOS # 0.6 10^3/uL (0.0-0.50); EOS % 8.3 % (0.0-3.0); HEMATOCRIT 37.2 % (42.0-52.0); HEMOGLOBIN 11.5 g/dl (13.5-17.5); LYMPH # 1.5 10^3/uL (1.5-4.5); LYMPH % 21.5 % (24.0-44.0); MEAN CORPUSCULAR HEMOGLOBIN 27.3 pg (27.0-33.0); MEAN CORPUSCULAR HGB CONC 30.9 g/dl (32.0-36.5); MEAN CORPUSCULAR VOLUME 88.4 fl (80.0-96.0); MONO # 0.8 10^3/uL (0.0-0.8); MONO % 11.3 % (0.0-5.0); NEUTROPHILS # 4.1 10^3/uL (1.8-7.7); NEUTROPHILS % 57.9 % (36.0-66.0); PLATELET COUNT, AUTOMATED 207 10^3/uL (150-450); RED BLOOD COUNT 4.21 10^6/uL (4.30-6.10)
[2019-02-02 07:42] LABS: CALCIUM LEVEL 9.3 MG/DL (8.8-10.2); CREATININE FOR GFR 1.38 MG/DL (0.70-1.30); GLOMERULAR FILTRATION RATE 53.9 (>42); MAGNESIUM LEVEL 2.1 MG/DL (1.8-2.4); POTASSIUM SERUM 4.2 MEQ/L (3.5-5.1)
[2019-02-02] MEDS: TORSEMIDE 20 MG TAB PO SCH (08:49)
[2019-02-02] MEDS: HumaLOG INSULIN (NovoLOG) PER UNIT SC SCH ×4 (08:49→21:43)
[2019-02-02] MEDS: ALLOPURINOL 300 MG TAB PO SCH (08:49)
[2019-02-02] MEDS: POTASSIUM CITRATE 1080 MG (10MEQ) TAB PO SCH ×3 (08:49→18:00)
[2019-02-02] MEDS: ASPIRIN 81 MG ENTERIC TAB PO SCH (08:49)
[2019-02-02] MEDS: VITAMIN D 1,000 INTERNATIONAL UNITS TABLET PO SCH (08:50)
[2019-02-02] MEDS: ATENOLOL 50 MG TAB PO SCH (08:50)
[2019-02-02] MEDS: LEVEMIR (INSULIN DETEMIR) 1 UNITS/0.01ML SC SCH ×2 (08:51→21:42)
[2019-02-02] MEDS: NYSTATIN 100,000 UNITS/GM TOPICAL PWD 15 GM TOP SCH ×2 (08:51→21:42)
[2019-02-02] MEDS: FERROUS SULFATE 325MG TAB PO SCH ×2 (08:51→21:40)
--- NOTE | 2019-02-02 11:54 | IPNPDOC ---
Text Note Date of Service The patient was seen on 02/02/19. NOTE SUBJECTIVE: No changes from prior days. Pt is stable and has no complaints. No f/c/n/v/abd pain/cp/sob.Awaiting BiPAP machine to be secured to dc him to [facility] for subacute rehab. PHYSICAL EXAMINATION: VITAL SIGNS: Please see below. GENERAL: Patient is alert and cooperative HEENT: NC AT CARDIOVASCULAR: RRR, S1S2 RESPIRATORY: air entry equal bilaterally. Minimal rales on rt lower base, otherwise clear ABDOMINAL: morbid obesity noted, abdomen is nontender. EXTREMITIES: 1-2+ pitting edema noted B/L, venous stasis changes present on ant erior portion of lower legs. NEUROLOGICAL: AAOx3 LABORATORY DATA, IMAGING STUDIES, MICROBIOLOGY: Please see below. ASSESSMENT AND PLAN: 74 year old male treated for decompensated CHF, currently awaiting BIPAP machine at [facility]. Plan to d/c to subacute rehab there when machine becomes available. Unclear when this will be. Continue monitoring in meanwhile. --Decompensated Diastolic CHF 2/2 Dietary Indiscretion Feels close to baseline clinically. Overall diuresed ~13L. Titrate down O2 as tolerated-none at baseline, but requiring 1-3L recently. --Bilateral leg erythema Concern of possible cellulitis on admission with hx of MRSA wound infections. Is s/p 5 days Doxycycline. No signs of infection currently. --Acute on chronic hypercarbia & hypoxemia likely 2/2 decompensated CHF & baseline noncompliant MONTSERRAT. Improving with diuresis & s/p BiPAP. Titrate down O2 supplement & continue BiPAP at night as per Pulm. --Obstructive Sleep Apnea Pulmonary/Respiratory titrated settings for BiPAP. Awaiting [facility] to secure machine for d/c to their subacute rehab --Diabetes mellitus Levemir and ISS Hypertension - c/w Atenolol Hypothyroidism - c/w levothyroxine Iron deficiency anemia - c/w ferrous sulfate Gout - c/w allopurinol Constipation - c/w Senokot Pulmonary hypertension - Likely secondary to morbid obesity and MONTSERRAT Morbid obesity, noncompliance - Complicating medical care History of colon cancer/status post partial colectomy 2002 -Follow up as outpatient GERD - c/w Famotidine DISPOSITION: Still waiting on BiPAP machine to be available at [facility], thus delaying discharge. No set date for dc currently. Will await an update on Monday with [facility] & social work. He is otherwise stable & felling well. I saw and evaluated the patient. I agree with the findings and plan of care as documented in the above note Per TORREZ, I+O VSPer, I+O Laboratory Tests 02/02/19 06:44 Red Blood Count 4.21 L, Mean Corpuscular Volume 88.4, Mean Corpuscular Hemoglobin 27.3, Mean Corpuscular Hemoglobin Concent 30.9 L, Red Cell Distribution Width 16.1 H, Neutrophils (%) (Auto) 57.9, Lymphocytes (%) (Auto) 21.5 L, Monocytes (%) (Auto) 11.3 H, Eosinophils (%) (Auto) 8.3 H, Basophils (%) (Auto) 0.7, Neutrophils # (Auto) 4.1, Lymphocytes # (Auto) 1.5, Monocytes # (Auto) 0.8, Eosinophils # (Auto) 0.6 H, Basophils # (Auto) 0.1, Calcium Level 9.3 Vital Signs Date Time Temp Pulse Resp B/P (MAP) Pulse Ox O2 Delivery O2 Flow Rate FiO2 02/02/19 09:00 2.0 02/02/19 08:50 72 133/76 02/02/19 06:00 97.2 18 90 01/31/19 01:52 BIPAP/CPAP l I&O- Last 24 Hours up to 6 AM 02/02/19 06:00 Intake Total 1390 ml Output Total 1475 ml Balance -85 ml MATIAS RAI DO Feb 02, 2019 11:54 CARISSA PAN MD Feb 13, 2019 15:41
[2019-02-02 14:00] VITALS: BP 146/76
[2019-02-02] MEDS: FOLIC ACID 1 MG TAB PO SCH (21:40)
[2019-02-02] MEDS: TERAZOSIN 1 MG CAP PO SCH (21:41)
[2019-02-02] MEDS: FAMOTIDINE 20 MG TAB PO SCH (21:41)
[2019-02-02] MEDS: SPIRONOLACTONE 25 MG TAB PO SCH (21:41)
[2019-02-02] MEDS: ENOXAPARIN 40 MG/0.4 ML SYRINGE (J1650) SC SCH (21:41)
[2019-02-02] MEDS: CYANOCOBALAMIN 500 MCG TAB PO SCH (21:47)
[2019-02-02 22:00] VITALS: BP 151/78
[2019-02-03 06:00] VITALS: BP 143/76
[2019-02-03] MEDS: SLF 3 ML SYR IV SCH ×3 (06:00→21:59)
[2019-02-03] MEDS: LEVOTHYROXINE 100MCG TABLET (0.1MG) PO SCH (06:09)
[2019-02-03 06:58] LABS: BASO # 0.1 10^3/uL (0.0-0.2); BASO % 0.8 % (0.0-1.0); EOS # 0.6 10^3/uL (0.0-0.50); EOS % 7.8 % (0.0-3.0); HEMATOCRIT 36.2 % (42.0-52.0); HEMOGLOBIN 11.2 g/dl (13.5-17.5); LYMPH # 1.4 10^3/uL (1.5-4.5); LYMPH % 18.1 % (24.0-44.0); MEAN CORPUSCULAR HEMOGLOBIN 27.5 pg (27.0-33.0); MEAN CORPUSCULAR HGB CONC 30.9 g/dl (32.0-36.5); MEAN CORPUSCULAR VOLUME 88.7 fl (80.0-96.0); MONO # 0.8 10^3/uL (0.0-0.8); MONO % 10.7 % (0.0-5.0); NEUTROPHILS # 4.8 10^3/uL (1.8-7.7); PLATELET COUNT, AUTOMATED 219 10^3/uL (150-450); RED BLOOD COUNT 4.08 10^6/uL (4.30-6.10); WHITE BLOOD COUNT 7.7 10^3/uL (4.0-10.0)
[2019-02-03 07:20] LABS: CALCIUM LEVEL 9.1 MG/DL (8.8-10.2); CREATININE FOR GFR 1.56 MG/DL (0.70-1.30); GLOMERULAR FILTRATION RATE 46.8 (>42); MAGNESIUM LEVEL 1.8 MG/DL (1.8-2.4); POTASSIUM SERUM 4.4 MEQ/L (3.5-5.1)
[2019-02-03] MEDS: VITAMIN D 1,000 INTERNATIONAL UNITS TABLET PO SCH (08:50)
[2019-02-03] MEDS: HumaLOG INSULIN (NovoLOG) PER UNIT SC SCH ×4 (08:50→21:54)
[2019-02-03] MEDS: ALLOPURINOL 300 MG TAB PO SCH (08:51)
[2019-02-03] MEDS: TORSEMIDE 20 MG TAB PO SCH (08:51)
[2019-02-03] MEDS: FERROUS SULFATE 325MG TAB PO SCH ×2 (08:51→21:55)
[2019-02-03] MEDS: ASPIRIN 81 MG ENTERIC TAB PO SCH (08:51)
[2019-02-03] MEDS: LEVEMIR (INSULIN DETEMIR) 1 UNITS/0.01ML SC SCH ×2 (08:51→21:54)
[2019-02-03] MEDS: POTASSIUM CITRATE 1080 MG (10MEQ) TAB PO SCH ×3 (08:51→17:58)
[2019-02-03] MEDS: ATENOLOL 50 MG TAB PO SCH (08:51)
[2019-02-03] MEDS: NYSTATIN 100,000 UNITS/GM TOPICAL PWD 15 GM TOP SCH ×2 (09:40→21:56)
[2019-02-03 09:57] LABS: ABG BASE EXCESS 9.6 (-2.0-2.0); ABG HCO3 35.7 MEQ/L (22.0-26.0); ABG O2 SATURATION 93.9 % (95.0-99.0); ABG PARTIAL PRESSURE CO2 54.9 mmHg (35.0-45.0); ABG PARTIAL PRESSURE O2 71.9 mmHg (75.0-100.0); ABG STANDARD HCO3 33.3 MEQ/L (22.0-26.0); ABG TOTAL CO2 37.4 MEQ/L (23.0-31.0); ABG pH (ARTERIAL) 7.431 UNITS (7.350-7.450)
[2019-02-03 14:00] VITALS: BP 152/75
[2019-02-03] MEDS: TERAZOSIN 1 MG CAP PO SCH (21:55)
[2019-02-03] MEDS: SPIRONOLACTONE 25 MG TAB PO SCH (21:55)
[2019-02-03] MEDS: FOLIC ACID 1 MG TAB PO SCH (21:55)
[2019-02-03] MEDS: CYANOCOBALAMIN 500 MCG TAB PO SCH (21:55)
[2019-02-03] MEDS: ENOXAPARIN 40 MG/0.4 ML SYRINGE (J1650) SC SCH (21:55)
[2019-02-03] MEDS: FAMOTIDINE 20 MG TAB PO SCH (21:55)
[2019-02-03 22:00] VITALS: BP 156/61
--- NOTE | 2019-02-04 00:34 | IPNPDOC ---
Subjective Date Seen The patient was seen on 02/03/19. Subjective Chief Complaint/HPI Feeling well today, denies any SOB or chest pain, denies any cough or phlegm. Says his leg swelling is improving. No fever or chills, no nausea or vomiting . Had diarrhea yesterday and the day before no bowel movement yet today. No abdominal pain Objective Physical Examination General Exam: Positive: Alert, Cooperative, No Acute Distress, Other (morbidly obese appearing) ENT Exam: Positive: Atraumatic, Mucous membr. moist/pink Neck Exam: Positive: Supple; Negative: JVD, thyromegaly Chest Exam: Positive: Clear to auscultation, Diminished (at the bases) Heart Exam: Positive: Rate Normal, Regular Rhythm, Normal S1, Normal S2; Negative: Gallops, Murmurs, Rubs Abdomen Exam: Positive: Normal bowel sounds, Soft; Negative: Tenderness Extremity Exam: Positive: Other (2+ pitting edema in the lower extremities bilaterally. Chronic venous stasis changes noted on the extremities.) Psych Exam: Positive: Oriented x 3 Assessment /Plan Assessment 73-year-old male with past medical history of hypertension, diabetes, hypothyroidism, GERD, gout, chronic kidney disease stage III, grade 2 diastolic congestive heart failure, pulmonary hypertension, morbid obesity, and obstructive sleep apnea noncompliant with CPAP presented to the ER with a chief complaint of shortness of breath. The patient states that he has been feeling excessively short of breath over the last several weeks. During this time, the patient notes that he has gained 30 pounds. He notes increased swelling in his lower extremities. He was admitted for decompensated CHF, currently awaiting BIPAP machine at [facility]. Plan to d/c to subacute rehab there when machine becomes available. Unclear when this will be. Continue monitoring in meanwhile. Acute on chronic Diastolic CHF and acute on chronic right heart failure 2/2 Dietary Indiscretion, noncompliant with BIPAP close to Euvolemic status continue torsemide and spironolactone continue I/O daily and fluid restriction. Acute on chronic respiratory failure with hypercarbia & hypoxemia due to decompensated CHF & baseline noncompliant MONTSERRAT. Improving with diuresis & s/p BiPAP. Titrate down O2 supplement & continue BiPAP at night as per Pulm. Obstructive Sleep Apnea Pulmonary/Respiratory titrated settings for BiPAP. Awaiting [facility] to secure machine for d/c to their subacute rehab Bilateral lower extremity venous stasis wit stasis dermatitis and lymphedema continue diuresis teds. Diabetes mellitus Levemir and lispro as per sliding scale CKD stage 3 creatinine at baseline will continue to monitor. Hypertension c/w Atenolol Hypothyroidism c/w levothyroxine Iron deficiency anemia c/w ferrous sulfate Gout c/w allopurinol Constipation c/w Senokot Pulmonary hypertension with acute on chronic right heart failure secondary to morbid obesity and MONTSERRAT continue diuresis. Morbid obesity, noncompliance Complicating medical care History of colon cancer/status post partial colectomy 2002 Follow up as outpatient GERD c/w Famotidine Plan/VTE VTE Prophylaxis Ordered?: Yes VS, I&O, 24H, [facility] Vital Signs/I&O Vital Signs Date Time Temp Pulse Resp B/P (MAP) Pulse Ox O2 Delivery O2 Flow Rate FiO2 02/03/19 10:00 2.0 02/03/19 08:51 66 143/76 02/03/19 06:00 96.6 18 93 01/31/19 01:52 BIPAP/CPAP I&O- Last 24 Hours up to 6 AM 02/03/19 05:59 Intake Total 1450 ml Output Total 2025 ml Balance -575 ml Laboratory Data 24H LABS Laboratory Tests 2 02/03/19 06:42: Immature Granulocyte % (Auto) 0.6, White Blood Count 7.7, Red Blood Count 4.08L, Hemoglobin 11.2L, Hematocrit 36.2L, Mean Corpuscular Volume 88.7, Mean Corpuscular Hemoglobin 27.5, Mean Corpuscular Hemoglobin Concent 30.9L, Red Cell Distribution Width 15.9H, Platelet Count 219, Neutrophils (%) (Auto) 62.0, Lymphocytes (%) (Auto) 18.1L, Monocytes (%) (Auto) 10.7H, Eosinophils (%) (Auto) 7.8H, Basophils (%) (Auto) 0.8, Neutrophils # (Auto) 4.8, Lymphocytes # (Auto) 1.4L, Monocytes # (Auto) 0.8, Eosinophils # (Auto) 0.6H, Basophils # (Auto) 0.1, Nucleated Red Blood Cells % (auto) 0.0, Anion Gap 5L, Glomerular Filtration Rate 46.8, Blood Urea Nitrogen 30H, Creatinine 1.56H, Sodium Level 139, Potassium Level 4.4, Chloride Level 98, Carbon Dioxide Level 36H, Calcium Level 9.1, Magn esium Level 1.8 02/03/19 09:48: Blood Gas Bicarbonate Standard 33.3H, Arterial Blood pH 7.431, Arterial Blood Partial Pressure CO2 54.9H, Arterial Blood Partial Pressure O2 71.9L, Arterial Blood Total CO2 37.4H, Arterial Blood HCO3 35.7H, Arterial Blood Base Excess 9.6H, Arterial Blood Oxygen Saturation 93.9L CBC/BMP Laboratory Tests 02/03/19 06:42 Red Blood Count 4.08 L, Mean Corpuscular Volume 88.7, Mean Corpuscular Hemoglobin 27.5, Mean Corpuscular Hemoglobin Concent 30.9 L, Red Cell Distribution Width 15.9 H, Neutrophils (%) (Auto) 62.0, Lymphocytes (%) (Auto) 18.1 L, Monocytes (%) (Auto) 10.7 H, Eosinophils (%) (Auto) 7.8 H, Basophils (%) (Auto) 0.8, Neutrophils # (Auto) 4.8, Lymphocytes # (Auto) 1.4 L, Monocytes # (Auto) 0.8, Eosinophils # (Auto) 0.6 H, Basophils # (Auto) 0.1, Calcium Level 9.1 CHRISTEL SILVEIRA MD Feb 03, 2019 13:58
[2019-02-04] MEDS: SLF 3 ML SYR IV SCH ×3 (05:52→20:41)
[2019-02-04] MEDS: LEVOTHYROXINE 100MCG TABLET (0.1MG) PO SCH (05:57)
[2019-02-04 06:00] VITALS: BP 130/74
[2019-02-04 06:26] LABS: BASO # 0.1 10^3/uL (0.0-0.2); BASO % 0.6 % (0.0-1.0); EOS # 0.6 10^3/uL (0.0-0.50); EOS % 8.2 % (0.0-3.0); HEMATOCRIT 36.9 % (42.0-52.0); HEMOGLOBIN 11.5 g/dl (13.5-17.5); LYMPH # 1.4 10^3/uL (1.5-4.5); LYMPH % 18.7 % (24.0-44.0); MEAN CORPUSCULAR HEMOGLOBIN 27.4 pg (27.0-33.0); MEAN CORPUSCULAR HGB CONC 31.2 g/dl (32.0-36.5); MEAN CORPUSCULAR VOLUME 88.1 fl (80.0-96.0); MONO # 0.7 10^3/uL (0.0-0.8); MONO % 9.5 % (0.0-5.0); NEUTROPHILS # 4.8 10^3/uL (1.8-7.7); NEUTROPHILS % 62.5 % (36.0-66.0); PLATELET COUNT, AUTOMATED 213 10^3/uL (150-450); RED BLOOD COUNT 4.19 10^6/uL (4.30-6.10); WHITE BLOOD COUNT 7.7 10^3/uL (4.0-10.0)
[2019-02-04 06:47] LABS: CALCIUM LEVEL 9.3 MG/DL (8.8-10.2); CREATININE FOR GFR 1.47 MG/DL (0.70-1.30); GLOMERULAR FILTRATION RATE 50.1 (>42); POTASSIUM SERUM 4.2 MEQ/L (3.5-5.1)
[2019-02-04] MEDS: ALLOPURINOL 300 MG TAB PO SCH (07:49)
[2019-02-04] MEDS: ATENOLOL 50 MG TAB PO SCH (07:49)
[2019-02-04] MEDS: TORSEMIDE 20 MG TAB PO SCH (07:49)
[2019-02-04] MEDS: ASPIRIN 81 MG ENTERIC TAB PO SCH (07:49)
[2019-02-04] MEDS: FERROUS SULFATE 325MG TAB PO SCH ×2 (07:49→20:40)
[2019-02-04] MEDS: VITAMIN D 1,000 INTERNATIONAL UNITS TABLET PO SCH (07:49)
[2019-02-04] MEDS: LEVEMIR (INSULIN DETEMIR) 1 UNITS/0.01ML SC SCH ×2 (07:50→20:40)
[2019-02-04] MEDS: HumaLOG INSULIN (NovoLOG) PER UNIT SC SCH ×4 (07:50→20:40)
[2019-02-04] MEDS: NYSTATIN 100,000 UNITS/GM TOPICAL PWD 15 GM TOP SCH ×2 (07:51→20:42)
[2019-02-04] MEDS: POTASSIUM CITRATE 1080 MG (10MEQ) TAB PO SCH ×3 (09:13→17:31)
[2019-02-04 14:00] VITALS: BP 115/60
--- NOTE | 2019-02-04 17:03 | IPNPDOC ---
Text Note Date of Service The patient was seen on 02/04/19. NOTE SUBJECTIVE: No complaints today. Awaiting BiPAP for dc to [facility] subacute rehab. Is stable and has no complaints. No f/c/n/v/abd pain/cp/sob. PHYSICAL EXAMINATION: VITAL SIGNS: Please see below. GENERAL: Patient is alert and cooperative HEENT: NCAT, moist mucous membranes CARDIOVASCULAR: RRR, S1S2 RESPIRATORY: air entry equal bilaterally. CTAB ABDOMINAL: morbid obesity noted, abdomen is nontender. EXTREMITIES: 1+ pitting edema noted B/L, venous stasis changes present on anterior portion of lower legs. NEUROLOGICAL: AAOx3 LABORATORY DATA, IMAGING STUDIES, MICROBIOLOGY: Please see below. ASSESSMENT AND PLAN: 74 year old male treated for decompensated CHF, currently awaiting BIPAP machine at [facility]. Plan to d/c to subacute rehab there when machine becomes available. Unclear when this will be. Continue monitoring in meanwhile. --Decompensated Diastolic CHF 2/2 Dietary Indiscretion Feels close to baseline clinically. Overall diuresed ~13L. Titrate down O2 as tolerated-none at baseline, but continues to require 1-3L. --Acute on chronic respiratory failure with hypercarbia & hypoxemia likely 2/2 decompensated CHF & baseline noncompliant MONTSERRAT. Improving with diuresis & s/p BiPAP. Titrate down O2 supplement & continue BiPAP at night as per Pulm. On Torsemide 40mg/day & Spironolactone 25mg/day --Chronic venous stasis dermatitis, stasis rubor and lymphedema Initially on admission there was concern of possible cellulitis on admission with hx of MRSA wound infections. Is s/p 5 days Doxycycline. No signs of infection currently. --Obstructive Sleep Apnea Pulmonary/Respiratory titrated settings for BiPAP. Awaiting [facility] to secure machine for d/c to subacute rehab --Diabetes mellitus Levemir and ISS Hypertension - c/w Atenolol Hypothyroidism - c/w levothyroxine Iron deficiency anemia - c/w ferrous sulfate Gout - c/w allopurinol Constipation - c/w Senokot Pulmonary hypertension - Likely secondary to morbid obesity and MONTSERRAT Morbid obesity, noncompliance - Complicating medical care History of colon cancer/status post partial colectomy 2002 -Follow up as outpatient GERD - c/w Famotidine DVT ppx: Lovenox sc DISPOSITION: Unfortunately, [facility] still not able to secure BiPAP. Pt otherwise stable. We are hopeful for discharge soon this week to [facility] subacute rehab as soon as machine becomes available. VS,Fishbone, I+O VS, Fishbone, I+O Laboratory Tests 02/04/19 05:57 Red Blood Count 4.19 L, Mean Corpuscular Volume 88.1, Mean Corpuscular H emoglobin 27.4, Mean Corpuscular Hemoglobin Concent 31.2 L, Red Cell Distribution Width 16.0 H, Neutrophils (%) (Auto) 62.5, Lymphocytes (%) (Auto) 18.7 L, Monocytes (%) (Auto) 9.5 H, Eosinophils (%) (Auto) 8.2 H, Basophils (%) (Auto) 0.6, Neutrophils # (Auto) 4.8, Lymphocytes # (Auto) 1.4 L, Monocytes # (Auto) 0.7, Eosinophils # (Auto) 0.6 H, Basophils # (Auto) 0.1, Calcium Level 9.3 Vital Signs Date Time Temp Pulse Resp B/P (MAP) Pulse Ox O2 Delivery O2 Flow Rate FiO2 02/04/19 14:00 97.8 76 18 115/60 (78) 97 02/04/19 06:00 2.0 01/31/19 01:52 BIPAP/CPAP I&O- Last 24 Hours up to 6 AM 02/04/19 06:00 Intake Total 1200 ml Output Total 2250 ml Balance -1050 ml GME ATTESTATION E ATTESTATION My faculty preceptor for this patient encounter was physically present during the encounter and was fully available. All aspects of the patient interview, examination, medical decision making process, and medical care plan development were reviewed and approved by the faculty preceptor. The faculty preceptor is aware and concurs with the plan as stated in the body of this note and will attest to such by his/her cosignature. ATTENDING NOTE I have personally seen and examined the patient this am. I agree with the finding and the plan of care as documented above in the resident's note with the following addendum/ amendment. On Cardiac exam there is a short systolic murmur at the base of the heart probably due to the Has Acute on chronic respiratory failure with hypoxia and hypercarbia now improving. Acute on chronic diastolic CHF and right heart failure and non mitral valvular heart disease Awaiting to hear back from [facility] regarding his BIPAP MATIAS RAI DO Feb 04, 2019 17:03 CHRISTEL SILVEIRA MD Feb 04, 2019 22:20
[2019-02-04] MEDS: ENOXAPARIN 40 MG/0.4 ML SYRINGE (J1650) SC SCH (20:39)
[2019-02-04] MEDS: FAMOTIDINE 20 MG TAB PO SCH (20:40)
[2019-02-04] MEDS: FOLIC ACID 1 MG TAB PO SCH (20:40)
[2019-02-04] MEDS: SPIRONOLACTONE 25 MG TAB PO SCH (20:41)
[2019-02-04] MEDS: TERAZOSIN 1 MG CAP PO SCH (20:41)
[2019-02-04] MEDS: CYANOCOBALAMIN 500 MCG TAB PO SCH (20:41)
[2019-02-04 22:00] VITALS: BP 171/70
[2019-02-05 06:00] VITALS: BP 176/80
[2019-02-05] MEDS: SLF 3 ML SYR IV SCH ×3 (06:00→20:52)
[2019-02-05] MEDS: LEVOTHYROXINE 100MCG TABLET (0.1MG) PO SCH (06:05)
[2019-02-05] MEDS: TORSEMIDE 20 MG TAB PO SCH (08:14)
[2019-02-05] MEDS: POTASSIUM CITRATE 1080 MG (10MEQ) TAB PO SCH ×3 (08:14→18:11)
[2019-02-05] MEDS: FERROUS SULFATE 325MG TAB PO SCH ×2 (08:14→20:51)
[2019-02-05] MEDS: ALLOPURINOL 300 MG TAB PO SCH (08:14)
[2019-02-05] MEDS: VITAMIN D 1,000 INTERNATIONAL UNITS TABLET PO SCH (08:14)
[2019-02-05] MEDS: ASPIRIN 81 MG ENTERIC TAB PO SCH (08:14)
[2019-02-05] MEDS: ATENOLOL 50 MG TAB PO SCH (08:14)
[2019-02-05] MEDS: LEVEMIR (INSULIN DETEMIR) 1 UNITS/0.01ML SC SCH ×2 (08:15→20:52)
[2019-02-05] MEDS: HumaLOG INSULIN (NovoLOG) PER UNIT SC SCH ×4 (08:15→20:52)
[2019-02-05] MEDS: NYSTATIN 100,000 UNITS/GM TOPICAL PWD 15 GM TOP SCH ×2 (08:15→20:52)
[2019-02-05 14:00] VITALS: BP 148/72
--- NOTE | 2019-02-05 16:23 | IPNPDOC ---
Text Note Date of Service The patient was seen on 02/05/19. NOTE SUBJECTIVE: Examined while sitting up in chair. No events overnight. Is eager to go to [facility] rehab-awaiting BiPAP. No issues today. Is stable and has no complaints. No f/c/n/v/abd pain/cp/sob. PHYSICAL EXAMINATION: VITAL SIGNS: Please see below. GENERAL: A&Ox3, NAD, resting comfortably HEENT: NCAT, moist mucous membranes CARDIOVASCULAR: RRR, S1S2 RESPIRATORY: air entry equal bilaterally. CTAB ABDOMINAL: morbid obesity noted, abdomen nontender, ND EXTREMITIES: 1+ pitting edema noted B/L, venous stasis changes present on anterior portion of lower legs. NEUROLOGICAL: AAOx3 LABORATORY DATA, IMAGING STUDIES, MICROBIOLOGY: Please see below. ASSESSMENT AND PLAN: 74 year old male treated for decompensated CHF, currently awaiting BIPAP machine at [facility]. Plan to d/c to subacute rehab there when machine becomes available. Unclear when this will be. Continue monitoring in meanwhile. --Decompensated Diastolic CHF 2/2 Dietary Indiscretion stable after diuresed ~13L. Continue titrating down O2 as tolerated-none at baseline, but still requiring 1-3L. --Acute on chronic respiratory failure with hypercarbia & hypoxemia likely 2/2 decompensated CHF & baseline noncompliant MONTSERRAT. Improving with diuresis & s/p BiPAP per Pulm. Titrate down O2 supplement & continue BiPAP at night as per Pulm. On Torsemide 40mg/day & Spironolactone 25mg/day --Chronic venous stasis dermatitis, stasis rubor and lymphedema Initially on admission there was concern of possible cellulitis on admission with hx of MRSA wound infections. Is s/p 5 days Doxycycline. No signs of infection currently. --Obstructive Sleep Apnea Pulmonary/Respiratory titrated settings for BiPAP. Awaiting [facility] to secure machine for d/c to subacute rehab --Diabetes mellitus Levemir and ISS Hypertension - c/w Atenolol Hypothyroidism - c/w levothyroxine Iron deficiency anemia - c/w ferrous sulfate Gout - c/w allopurinol Constipation - c/w Senokot Pulmonary hypertension - Likely secondary to morbid obesity and MONTSERRAT Morbid obesity, noncompliance - Complicating medical care History of colon cancer/status post partial colectomy 2002 -Follow up as outpatient GERD - c/w Famotidine DVT ppx: Lovenox sc DISPOSITION: still awaiting [facility] subacute rehab to secure BiPAP. Otherwise doing well and continues to be medically stable. Will continue reaching out to [facility] for BiPAP to be secured so pt may be discharged safely. VS,Fishbone, I+O VS, Fishbone, I+O Vital Signs Date Time Temp Pulse Resp B/P (MAP) Pulse Ox O2 Delivery O2 Flow Rate FiO2 02/05/19 14:00 97.5 80 20 148/72 (97) 97 4.0 01/31/19 01:52 BIPAP/CPAP I&O- Last 24 Hours up to 6 AM 02/05/19 06:00 Intake Total 1580 ml Output Total 2000 ml Balance -420 ml GME ATTESTATION GME ATTESTATION My faculty preceptor for this patient encounter was physically present during the encounter and was fully available. All aspects of the patient interview, examination, medical decision making process, and medical care plan development were reviewed and approved by the faculty preceptor. The faculty preceptor is aware and concurs with the plan as stated in the body of this note and will attest to such by his/her cosignature. ATTENDING NOTE I have personally seen and examined the patient this am. I agree with the finding and the plan of care as documented above resident's/ medical student's note . MATIAS RAI DO Feb 05, 2019 16:23 CHRISTEL SILVEIRA MD Feb 05, 2019 23:25
[2019-02-05] MEDS: CYANOCOBALAMIN 500 MCG TAB PO SCH (20:50)
[2019-02-05] MEDS: SPIRONOLACTONE 25 MG TAB PO SCH (20:50)
[2019-02-05] MEDS: FOLIC ACID 1 MG TAB PO SCH (20:51)
[2019-02-05] MEDS: TERAZOSIN 1 MG CAP PO SCH (20:51)
[2019-02-05] MEDS: FAMOTIDINE 20 MG TAB PO SCH (20:51)
[2019-02-05] MEDS: ENOXAPARIN 40 MG/0.4 ML SYRINGE (J1650) SC SCH (20:51)
[2019-02-05 22:00] VITALS: BP 154/77
[2019-02-06] MEDS: LEVOTHYROXINE 100MCG TABLET (0.1MG) PO SCH (05:43)
[2019-02-06] MEDS: SLF 3 ML SYR IV SCH ×3 (05:43→22:00)
[2019-02-06 06:00] VITALS: BP 160/62
[2019-02-06 06:26] LABS: BASO # 0.1 10^3/uL (0.0-0.2); BASO % 0.6 % (0.0-1.0); EOS # 0.8 10^3/uL (0.0-0.50); EOS % 9.8 % (0.0-3.0); HEMATOCRIT 36.8 % (42.0-52.0); HEMOGLOBIN 11.2 g/dl (13.5-17.5); LYMPH # 1.5 10^3/uL (1.5-4.5); LYMPH % 19.2 % (24.0-44.0); MEAN CORPUSCULAR HEMOGLOBIN 26.4 pg (27.0-33.0); MEAN CORPUSCULAR HGB CONC 30.4 g/dl (32.0-36.5); MEAN CORPUSCULAR VOLUME 86.6 fl (80.0-96.0); MONO # 0.8 10^3/uL (0.0-0.8); MONO % 9.8 % (0.0-5.0); NEUTROPHILS # 4.7 10^3/uL (1.8-7.7); NEUTROPHILS % 60.2 % (36.0-66.0); PLATELET COUNT, AUTOMATED 217 10^3/uL (150-450); RED BLOOD COUNT 4.25 10^6/uL (4.30-6.10); WHITE BLOOD COUNT 7.8 10^3/uL (4.0-10.0)
[2019-02-06 06:55] LABS: CREATININE FOR GFR 1.32 MG/DL (0.70-1.30); GLOMERULAR FILTRATION RATE 56.8 (>42)
[2019-02-06] MEDS: HumaLOG INSULIN (NovoLOG) PER UNIT SC SCH ×4 (07:47→21:17)
[2019-02-06] MEDS: LEVEMIR (INSULIN DETEMIR) 1 UNITS/0.01ML SC SCH ×2 (08:27→21:17)
[2019-02-06] MEDS: VITAMIN D 1,000 INTERNATIONAL UNITS TABLET PO SCH (08:28)
[2019-02-06] MEDS: POTASSIUM CITRATE 1080 MG (10MEQ) TAB PO SCH ×3 (08:28→17:03)
[2019-02-06] MEDS: ASPIRIN 81 MG ENTERIC TAB PO SCH (08:28)
[2019-02-06] MEDS: TORSEMIDE 20 MG TAB PO SCH (08:28)
[2019-02-06] MEDS: ALLOPURINOL 300 MG TAB PO SCH (08:28)
[2019-02-06] MEDS: NYSTATIN 100,000 UNITS/GM TOPICAL PWD 15 GM TOP SCH ×2 (08:29→21:16)
[2019-02-06] MEDS: FERROUS SULFATE 325MG TAB PO SCH ×2 (08:29→21:19)
[2019-02-06] MEDS: ATENOLOL 50 MG TAB PO SCH (08:29)
[2019-02-06 14:00] VITALS: BP 145/80
--- NOTE | 2019-02-06 15:18 | IPNPDOC ---
Text Note Date of Service The patient was seen on 02/06/19. NOTE SUBJECTIVE: Examined at bedside. No new complaints. Stable without any new issues. Awaiting BiPAP machine so that he may go to [facility] subacute rehab. No f/c/n/v/abd pain/cp/sob. PHYSICAL EXAMINATION: VITAL SIGNS: Please see below. GENERAL: A&Ox3, NAD, resting comfortably HEENT: NCAT, moist mucous membranes CARDIOVASCULAR: RRR, S1S2 RESPIRATORY: air entry equal bilaterally. CTAB ABDOMINAL: morbid obesity noted, abdomen nontender, ND EXTREMITIES: 1+ pitting edema noted B/L, venous stasis changes present on anterior portion of lower legs. NEUROLOGICAL: AAOx3, fully conversant LABORATORY DATA, IMAGING STUDIES, MICROBIOLOGY: Please see below. ASSESSMENT AND PLAN: 74 year old male treated for decompensated CHF, currently awaiting BIPAP machine at [facility]. Plan to d/c to subacute rehab there when machine becomes available. Unclear when this will be. Continue monitoring in meanwhile. --Decompensated Diastolic CHF 2/2 Dietary Indiscretion stable now s/p aggressive diuresis, removed ~13L. Continue titrating down O2 as tolerated-none at baseline, but still requiring 1-3L. --Acute on chronic respiratory failure with hypercarbia & hypoxemia still requiring supplemental O2. Titrate down O2 supplement & continue BiPAP at night as per Pulm. likely 2/2 decompensated CHF & baseline noncompliant MONTSERRAT. Improving with diuresis & s/p BiPAP per Pulm. On Torsemide 40mg/day & Spironolactone 25mg/day --Chronic venous stasis dermatitis, stasis rubor and lymphedema Initially on admission there was concern of possible cellulitis on admission with hx of MRSA wound infections. Is s/p 5 days Doxycycline. No signs of infection currently. --Obstructive Sleep Apnea Pulmonary/Respiratory titrated settings for BiPAP. Awaiting [facility] to secure machine for d/c to subacute rehab --Diabetes mellitus Levemir and ISS Hypertension - c/w Atenolol Hypothyroidism - c/w levothyroxine Iron deficiency anemia - c/w ferrous sulfate Gout - c/w allopurinol Constipation - c/w Senokot Pulmonary hypertension - Likely secondary to morbid obesity and MONTSERRAT Morbid obesity, noncompliance - Complicating medical care History of colon cancer/status post partial colectomy 2002 -Follow up as outpatient GERD - c/w Famotidine DVT ppx: Lovenox sc DISPOSITION: [facility]ing so that Mr. Chew may go to [facility] for subacute rehab. In meanwhile, will obtain noc pulse ox so to assist with Pulm f/u and O2 titration. He is otherwise stable and doing well. VS,Fishbone, I+O VS, Fishbone, I+O Laboratory Tests 02/06/19 05:50 Red Blood Count 4.25 L, Mean Corpuscular Volume 86.6, Mean Corpuscular Hemoglobin 26.4 L, Mean Corpuscular Hemoglobin Concent 30.4 L, Red Cell Distribution Width 16.1 H, Neutrophils (%) (Auto) 60.2, Lymphocytes (%) (Auto) 19.2 L, Monocytes (%) (Auto) 9.8 H, Eosinophils (%) (Auto) 9.8 H, Basophils (%) (Auto) 0.6, Neutrophils # (Auto) 4.7, Lymphocytes # (Auto) 1.5, Monocytes # (Auto) 0.8, Eosinophils # (Auto) 0.8 H, Basophils # (Auto) 0.1, Calcium Level 9.0 Vital Signs Date Time Temp Pulse Resp B/P (MAP) Pulse Ox O2 Delivery O2 Flow Rate FiO2 02/06/19 09:00 2.0 02/06/19 08:29 72 160/62 02/06/19 06:00 97.5 20 94 01/31/19 01:52 BIPAP/CPAP I&O- Last 24 Hours up to 6 AM 02/06/19 05:59 Intake Total 1130 ml Output Total 2950 ml Balance -1820 ml GME ATTESTATION GME ATTESTATION My faculty preceptor for this patient encounter was physically present during the encounter and was fully available. All aspects of the patient interview, examination, medical decision making process, and medical care plan development were reviewed and approved by the faculty preceptor. The faculty preceptor is aware and concurs with the plan as stated in the body of this note and will attest to such by his/her cosignature. ATTENDING NOTE I have personally seen and examined the patient this am. I agree with the finding and the plan of care as documented above resident's note . I spoke with Dr Fowler about aranging for a sleep study as we [facility] about the [facility] of his getting a new [facility]. Dr Davidson is going to send a referral to our sleep lab and would try to get him scheduled as quickly as possible . Will do oxygen studies today to see if he qualifies for home oxygen. MATIAS RAI DO Feb 06, 2019 15:18 CHRISTEL SILVEIRA MD Feb 06, 2019 22:18
[2019-02-06] MEDS: ENOXAPARIN 40 MG/0.4 ML SYRINGE (J1650) SC SCH (21:16)
[2019-02-06] MEDS: CYANOCOBALAMIN 500 MCG TAB PO SCH (21:17)
[2019-02-06] MEDS: TERAZOSIN 1 MG CAP PO SCH (21:18)
[2019-02-06] MEDS: SPIRONOLACTONE 25 MG TAB PO SCH (21:19)
[2019-02-06] MEDS: FAMOTIDINE 20 MG TAB PO SCH (21:19)
[2019-02-06] MEDS: FOLIC ACID 1 MG TAB PO SCH (21:19)
[2019-02-06 22:00] VITALS: BP 148/63
[2019-02-07] MEDS: LEVOTHYROXINE 100MCG TABLET (0.1MG) PO SCH (05:42)
[2019-02-07 06:00] VITALS: BP 158/82
[2019-02-07] MEDS: SLF 3 ML SYR IV SCH ×3 (06:00→21:53)
[2019-02-07 06:14] LABS: BASO # 0.1 10^3/uL (0.0-0.2); BASO % 0.6 % (0.0-1.0); EOS # 0.8 10^3/uL (0.0-0.50); EOS % 9.2 % (0.0-3.0); HEMATOCRIT 39.4 % (42.0-52.0); HEMOGLOBIN 12.4 g/dl (13.5-17.5); LYMPH # 1.7 10^3/uL (1.5-4.5); LYMPH % 19.4 % (24.0-44.0); MEAN CORPUSCULAR HEMOGLOBIN 27.6 pg (27.0-33.0); MEAN CORPUSCULAR HGB CONC 31.5 g/dl (32.0-36.5); MEAN CORPUSCULAR VOLUME 87.8 fl (80.0-96.0); MONO # 0.8 10^3/uL (0.0-0.8); MONO % 9.1 % (0.0-5.0); NEUTROPHILS # 5.3 10^3/uL (1.8-7.7); NEUTROPHILS % 61.2 % (36.0-66.0); PLATELET COUNT, AUTOMATED 214 10^3/uL (150-450); RED BLOOD COUNT 4.49 10^6/uL (4.30-6.10); WHITE BLOOD COUNT 8.7 10^3/uL (4.0-10.0)
[2019-02-07 06:35] LABS: CALCIUM LEVEL 9.4 MG/DL (8.8-10.2); CREATININE FOR GFR 1.48 MG/DL (0.70-1.30); GLOMERULAR FILTRATION RATE 49.7 (>42)
[2019-02-07] MEDS: POTASSIUM CITRATE 1080 MG (10MEQ) TAB PO SCH ×3 (07:23→17:07)
[2019-02-07] MEDS: HumaLOG INSULIN (NovoLOG) PER UNIT SC SCH ×4 (07:23→21:51)
[2019-02-07] MEDS: VITAMIN D 1,000 INTERNATIONAL UNITS TABLET PO SCH (08:39)
[2019-02-07] MEDS: ATENOLOL 50 MG TAB PO SCH (08:39)
[2019-02-07] MEDS: TORSEMIDE 20 MG TAB PO SCH (08:39)
[2019-02-07] MEDS: FERROUS SULFATE 325MG TAB PO SCH ×2 (08:40→21:50)
[2019-02-07] MEDS: ALLOPURINOL 300 MG TAB PO SCH (08:40)
[2019-02-07] MEDS: ASPIRIN 81 MG ENTERIC TAB PO SCH (08:40)
[2019-02-07] MEDS: NYSTATIN 100,000 UNITS/GM TOPICAL PWD 15 GM TOP SCH ×2 (08:40→21:53)
[2019-02-07] MEDS: LEVEMIR (INSULIN DETEMIR) 1 UNITS/0.01ML SC SCH ×2 (08:40→21:52)
[2019-02-07 14:00] VITALS: BP 182/75
[2019-02-07 15:56] VITALS: BP 122/72
--- NOTE | 2019-02-07 18:51 | IPNPDOC ---
Text Note Date of Service The patient was seen on 02/07/19. NOTE SUBJECTIVE: Mr. Chew is doing well and has no complaints. No events overnight. Continues to await BiPAP machine from [place] so that he may go to subacute rehab. Stable without any new issues. No f/c/n/v/abd pain/cp/sob. PHYSICAL EXAMINATION: VITAL SIGNS: Please see below. GENERAL: A&Ox3, NAD, resting comfortably HEENT: NCAT, moist mucous membranes, neck supple CARDIOVASCULAR: RRR, S1S2, distant sounds RESPIRATORY: air entry equal bilaterally. CTAB, no adventitious sounds ABDOMINAL: morbid obesity noted, abdomen nontender, ND EXTREMITIES: 1+ pitting edema B/L LE, venous stasis changes present on anterior portion of lower legs. NEUROLOGICAL: AAOx3, fully conversant LABORATORY DATA, IMAGING STUDIES, MICROBIOLOGY: Please see below. ASSESSMENT AND PLAN: 74 year old male treated for decompensated CHF, currently awaiting BIPAP machine at [facility]. Plan to d/c to subacute rehab there when machine becomes available. Unclear when this will be. Continue monitoring in meanwhile. --Decompensated Diastolic CHF 2/2 Dietary Indiscretion stable now s/p aggressive diuresis, removed ~13L. Continue titrating down O2 as tolerated-none at baseline. --Acute on chronic respiratory failure with hypercarbia & hypoxemia still requiring supplemental O2. Titrate down O2 supplement & continue BiPAP at night as per Pulm. likely 2/2 decompensated CHF & baseline noncompliant MONTSERRAT. Improving with diuresis & s/p BiPAP per Pulm. On Torsemide 40mg/day & Spironolactone 25mg/day --Chronic venous stasis dermatitis, stasis rubor and lymphedema Initially on admission there was concern of possible cellulitis on admission with hx of MRSA wound infections. Is s/p 5 days Doxycycline. No signs of infection currently. --Obstructive Sleep Apnea Pulmonary/Respiratory titrated settings for BiPAP. Awaiting [facility] to secure machine for d/c to subacute rehab --Diabetes mellitus Levemir and ISS Hypertension - c/w Atenolol Hypothyroidism - c/w levothyroxine Iron deficiency anemia - c/w ferrous sulfate Gout - c/w allopurinol Constipation - c/w Senokot Pulmonary hypertension - Likely secondary to morbid obesity and MONTSERRAT Morbid obesity, noncompliance - Complicating medical care History of colon cancer/status post partial colectomy 2002 -Follow up as outpatient GERD - c/w Famotidine DVT ppx: Lovenox sc DISPOSITION: Still awaiting [facility] so he may go to subacute rehab at [facility]. In meanwhile, will attempt noc ox and ambulatory o2 monitoring so that he can at least be d/c'd with supplemental O2 while he goes to rehab and awaits BiPAP. He is otherwise stable and doing well. VS,Fishbone, I+O VS, Fishbone, I+O Laboratory Tests 02/07/19 06:00 Red Blood Count 4.49, Mean Corpuscular Volume 87.8, Mean Corpuscular Hemoglobin 27.6, Mean Corpuscular Hemoglobin Concent 31.5 L, Red Cell Distribution Width 15.9 H, Neutrophils (%) (Auto) 61.2, Lymphocytes (%) (Auto) 19.4 L, Monocytes (%) (Auto) 9.1 H, Eosinophils (%) (Auto) 9.2 H, Basophils (%) (Auto) 0.6, Neutrophils # (Auto) 5.3, Lymphocytes # (Auto) 1.7, Monocytes # (Auto) 0.8, Eosinophils # (Auto) 0.8 H, Basophils # (Auto) 0.1, Calcium Level 9.4 Vital Signs Date Time Temp Pulse Resp B/P (MAP) Pulse Ox O2 Delivery O2 Flow Rate FiO2 02/07/19 15:56 77 122/72 (89) 02/07/19 14:00 97.6 17 90 02/07/19 09:00 1.0 I&O- Last 24 Hours up to 6 AM 02/07/19 06:00 Intake Total 1846 ml Output Total 1280 ml Balance 566 ml Attending Note Attending Note I have personally seen and examined the patient this am. I agree with the finding and the plan of care as documented above in the resident's/medical student's note. Will have to repeat the nocturanl oximetry as it was done with BIPAP and the patient did not desaturate. Also he did not have any desaturations on ambulation or at rest. So today he did not qualify for home oxygen. Tonight we will do the noc oximetry without BIPAP. I have reached out to Dr Suero to get a referral for sleep study to our sleep lab. She will be sending in the paperwork. MATIAS RAI DO Feb 07, 2019 18:51 CHRISTEL SILVEIRA MD Feb 07, 2019 19:38
[2019-02-07] MEDS: CYANOCOBALAMIN 500 MCG TAB PO SCH (21:48)
[2019-02-07] MEDS: FOLIC ACID 1 MG TAB PO SCH (21:48)
[2019-02-07] MEDS: FAMOTIDINE 20 MG TAB PO SCH (21:48)
[2019-02-07] MEDS: TERAZOSIN 1 MG CAP PO SCH (21:50)
[2019-02-07] MEDS: SPIRONOLACTONE 25 MG TAB PO SCH (21:50)
[2019-02-07] MEDS: ENOXAPARIN 40 MG/0.4 ML SYRINGE (J1650) SC SCH (21:52)
[2019-02-07 22:00] VITALS: BP 146/69
[2019-02-08 06:00] VITALS: BP 125/80
[2019-02-08 06:22] LABS: BASO # 0.1 10^3/uL (0.0-0.2); BASO % 0.7 % (0.0-1.0); EOS # 0.9 10^3/uL (0.0-0.50); EOS % 10.3 % (0.0-3.0); HEMATOCRIT 37.6 % (42.0-52.0); HEMOGLOBIN 11.6 g/dl (13.5-17.5); LYMPH # 1.7 10^3/uL (1.5-4.5); MEAN CORPUSCULAR HEMOGLOBIN 27.3 pg (27.0-33.0); MEAN CORPUSCULAR HGB CONC 30.9 g/dl (32.0-36.5); MEAN CORPUSCULAR VOLUME 88.5 fl (80.0-96.0); MONO # 0.8 10^3/uL (0.0-0.8); MONO % 9.6 % (0.0-5.0); NEUTROPHILS # 5.1 10^3/uL (1.8-7.7); NEUTROPHILS % 59.1 % (36.0-66.0); PLATELET COUNT, AUTOMATED 210 10^3/uL (150-450); RED BLOOD COUNT 4.25 10^6/uL (4.30-6.10); WHITE BLOOD COUNT 8.7 10^3/uL (4.0-10.0)
[2019-02-08] MEDS: LEVOTHYROXINE 100MCG TABLET (0.1MG) PO SCH (06:24)
[2019-02-08] MEDS: SLF 3 ML SYR IV SCH ×2 (06:24→11:52)
[2019-02-08 06:44] LABS: CALCIUM LEVEL 9.1 MG/DL (8.8-10.2); CREATININE FOR GFR 1.34 MG/DL (0.70-1.30); GLOMERULAR FILTRATION RATE 55.8 (>42); POTASSIUM SERUM 4.3 MEQ/L (3.5-5.1)
[2019-02-08] MEDS: HumaLOG INSULIN (NovoLOG) PER UNIT SC SCH ×2 (07:53→11:52)
[2019-02-08] MEDS: POTASSIUM CITRATE 1080 MG (10MEQ) TAB PO SCH ×2 (07:54→11:52)
[2019-02-08] MEDS: VITAMIN D 1,000 INTERNATIONAL UNITS TABLET PO SCH (07:54)
[2019-02-08] MEDS: TORSEMIDE 20 MG TAB PO SCH (07:54)
[2019-02-08] MEDS: LEVEMIR (INSULIN DETEMIR) 1 UNITS/0.01ML SC SCH (07:54)
[2019-02-08] MEDS: ALLOPURINOL 300 MG TAB PO SCH (07:55)
[2019-02-08] MEDS: ASPIRIN 81 MG ENTERIC TAB PO SCH (07:55)
[2019-02-08] MEDS: FERROUS SULFATE 325MG TAB PO SCH (07:55)
[2019-02-08 08:16] VITALS: BP 151/74
[2019-02-08] MEDS: ATENOLOL 50 MG TAB PO SCH (08:16)
[2019-02-08] MEDS: NYSTATIN 100,000 UNITS/GM TOPICAL PWD 15 GM TOP SCH (08:16)
--- NOTE | 2019-02-08 12:32 | IPNPDOC ---
Text Note Date of Service The patient was seen on 02/08/19. NOTE SUBJECTIVE: Pt examined at bedside. Stable and doing well on room air, no longer requiring supplemental o2. Fortunately has cleared PT. No f/c/n/v/abd pain/cp/sob. PHYSICAL EXAMINATION: VITAL SIGNS: Please see below. GENERAL: A&Ox3, resting comfortably, NAD HEENT: NCAT, moist mucous membranes, neck supple CARDIOVASCULAR: RRR, S1S2, distant sounds due to body habitus RESPIRATORY: air entry equal b/l. CTAB, no adventitious sounds ABDOMINAL: morbid obesity, abdomen nontender, ND EXTREMITIES: 1+ pitting edema B/L LE, chronic venous stasis changes NEUROLOGICAL: AAOx3, fully conversant LABORATORY DATA, IMAGING STUDIES, MICROBIOLOGY: Please see below. ASSESSMENT AND PLAN: 74 year old male treated for decompensated CHF, currently awaiting BIPAP machine at [facility]. Plan to d/c to subacute rehab there when machine becomes available. Unclear when this will be. Continue monitoring in meanwhile. --Decompensated Diastolic CHF 2/2 Dietary Indiscretion stable s/p aggressive diuresis, removed ~13L. Pt successfully weaned off O2 and tolerated ambulation with pulse ox without desatting. Continue baseline po diur etics --Acute on chronic respiratory failure with hypercarbia & hypoxemia likely 2/2 decompensated CHF & baseline noncompliant MONTSERRAT. Improving with diuresis & s/p BiPAP per Pulm. On Torsemide 40mg/day & Spironolactone 25mg/day continue BiPAP at night as per Pulm. Will send home on O2 for sleeping while he awaits sleep study to get a new BIPAP. --Chronic venous stasis dermatitis, stasis rubor and lymphedema Initially on admission there was concern of possible cellulitis on admission with hx of MRSA wound infections. Is s/p 5 days Doxycycline. No signs of infection currently. --Obstructive Sleep Apnea Pulmonary/Respiratory titrated settings for BiPAP. Awaiting [facility] to secure machine for d/c to subacute rehab --Diabetes mellitus Levemir and ISS Hypertension - c/w Atenolol Hypothyroidism - c/w levothyroxine Iron deficiency anemia - c/w ferrous sulfate Gout - c/w allopurinol Constipation - c/w Senokot Pulmonary hypertension - Likely secondary to morbid obesity and MONTSERRAT Morbid obesity, noncompliance - Complicating medical care History of colon cancer/status post partial colectomy 2002 -Follow up as outpatient GERD - c/w Famotidine DVT ppx: Lovenox sc DISPOSITION: Please see 01/29/19 discharge note. Pt has fortunately been weaned off supplemental O2 during the day and ambulated hallways well without desatting. Also has cleared PT and does not need rehab per their recommendation. [facility] However, in meanwhile, will send pt home with supplemental O2 for nighttime use as he awaits BiPAP. VS,Fishbone, I+O VS, Fishbone, I+O Laboratory Tests 02/08/19 05:57 Red Blood Count 4.25 L, Mean Corpuscular Volume 88.5, Mean Corpuscular Hemoglobin 27.3, Mean Corpuscular Hemoglobin Concent 30.9 L, Red Cell Distribution Width 16.1 H, Neutrophils (%) (Auto) 59.1, Lymphocytes (%) (Auto) 2 0.0 L, Monocytes (%) (Auto) 9.6 H, Eosinophils (%) (Auto) 10.3 H, Basophils (%) (Auto) 0.7, Neutrophils # (Auto) 5.1, Lymphocytes # (Auto) 1.7, Monocytes # (Auto) 0.8, Eosinophils # (Auto) 0.9 H, Basophils # (Auto) 0.1, Calcium Level 9.1 Vital Signs Date Time Temp Pulse Resp B/P (MAP) Pulse Ox O2 Delivery O2 Flow Rate FiO2 02/08/19 08:16 75 151/74 02/08/19 06:00 97.2 18 90 02/07/19 09:00 1.0 I&O- Last 24 Hours up to 6 AM 02/08/19 06:00 Intake Total 1210 ml Output Total 2250 ml Balance -1040 ml Attending Note I have personally seen and examined the patient this am. I agree with the finding and the plan of care as documented above resident's note. Sleep study will have to be scheduled as an outpatient will refer him to Pulmonary for this. He can get a new BIPAP machine only after he gets the sleep study. Nocturnal oximetry showed desaturations during sleep so he has qualified for nocturnal oxygen. Will discharge him with oxygen at night. MATIAS RAI DO Feb 08, 2019 12:32 CHRISTEL SILVEIRA MD Feb 08, 2019 21:37
--- NOTE | 2019-02-11 14:42 | NOCOX ---
DATE OF PROCEDURE: 02/07/19 ORDERING PHYSICIAN: Dr. Alfaro Nocturnal recording oximetry was performed on room air. Baseline saturation 95%. Lowest oxygen saturation recorded in the low 70s. The pattern was one of variable desaturations. IMPRESSION: Abnormal nocturnal recording oximetry on room air with variable desaturations suggesting obstructive sleep apnea syndrome. MTDD
--- NOTE | 2019-02-12 00:31 | NOCOX ---
DATE OF STUDY: 02/06/2019 ORDERED BY: Dr. Alfaro Study is performed on bilevel positive airway pressure (BiPAP) 20/10 with room air. Study of excellent technical quality. Mean oxygen saturation for the study 91.2%. Marked variability throughout the study is identified, raising the question of concomitant underlying Brett-Blanchard respirations. Lowest reliably recorded oxygen saturation 82%. IMPRESSION: Abnormal nocturnal oximetry despite pressure therapy. Consider the addition of supplemental oxygen into the system and repeat the study.
== END 2019-02-08 15:40 | disposition home health service (06) | DRG 291 ==
LOC: EDBD 10:38 → M ED 10:38 → EEVIPCON 13:22 → M ED INP 13:22 → M PCU 15:19 → M ICU 01-21 16:49 → M PCU 01-24 22:07 → M MSPAV 01-26 14:25
PROVIDERS: ADMIT Internal Medicine; ATTEND Internal Medicine Nephrology
DX: I13.0 Hypertensive heart and chronic kidney disease with heart failure and stage 1 through stage 4 chronic kidney disease, or unspecified chronic kidney disease (principal); I50.33 Acute on chronic diastolic (congestive) heart failure; G93.41 Metabolic encephalopathy; J96.21 Acute and chronic respiratory failure with hypoxia; J96.22 Acute and chronic respiratory failure with hypercapnia; Z68.43 Body mass index [BMI] 50.0-59.9, adult; E87.3 Alkalosis; L03.115 Cellulitis of right lower limb; L03.116 Cellulitis of left lower limb; G47.33 Obstructive sleep apnea (adult) (pediatric); E11.22 Type 2 diabetes mellitus with diabetic chronic kidney disease; E03.9 Hypothyroidism, unspecified; D50.9 Iron deficiency anemia, unspecified; B35.1 Tinea unguium; Z86.14 Personal history of Methicillin resistant Staphylococcus aureus infection; M10.9 Gout, unspecified; I87.2 Venous insufficiency (chronic) (peripheral); I35.2 Nonrheumatic aortic (valve) stenosis with insufficiency; K59.00 Constipation, unspecified; I27.20 Pulmonary hypertension, unspecified; E66.01 Morbid (severe) obesity due to excess calories; K21.9 Gastro-esophageal reflux disease without esophagitis; N18.3 Chronic kidney disease, stage 3 (moderate); Z79.82 Long term (current) use of aspirin; Z79.4 Long term (current) use of insulin; Z79.899 Other long term (current) drug therapy; Z88.5 Allergy status to narcotic agent; Z85.038 Personal history of other malignant neoplasm of large intestine; Z90.49 Acquired absence of other specified parts of digestive tract; Z91.19 Patient's noncompliance with other medical treatment and regimen; Z91.11 Patient's noncompliance with dietary regimen

== ENCOUNTER 2019-05-27 13:20 | Inpatient (IN) | payer MEDICARE, MEDICAID ==
[~2019-05-27] VITALS: Ht 185.4 cm; Wt 166.5 kg
[~2019-05-27 13:20] MED LIST changes: +ACET-683 PO; -ARTI99.0 OU; +ARTIDRO2 OU; +ASPI81CH44 PO; +GLUC4GMTAB PO; +LANTINJ4 SC; +NOVOINJ3 SC; +TORS20TA2 PO; +TRAM50TA2 PO; +VITA-144 PO
[2019-05-27] MEDS ORDERED: dexameTHASONE 20 MG/5 ML VIAL (J1100) IV ONE (13:30)
[2019-05-27 13:45] LABS: ABG BASE EXCESS 13.5 (-2.0-2.0); ABG HCO3 43.6 MEQ/L (22.0-26.0); ABG O2 SATURATION 94.6 % (95.0-99.0); ABG PARTIAL PRESSURE O2 82.8 mmHg (75.0-100.0); ABG STANDARD HCO3 37.2 MEQ/L (22.0-26.0); ABG TOTAL CO2 46.5 MEQ/L (23.0-31.0); ABG pH (ARTERIAL) 7.295 UNITS (7.350-7.450)
[2019-05-27] MEDS ORDERED: FUROSEMIDE 100 MG/10 ML VIAL (J1940) IV ONE (13:45)
[2019-05-27 13:51] LABS: ABG PARTIAL PRESSURE CO2 91.8 mmHg (35.0-45.0)
[2019-05-27] MEDS ORDERED: LIDOCAINE 2% 5ML JELLY UROJET TOP ONE (14:15)
[2019-05-27] MEDS ORDERED: TORS10TA3 (14:29)
[2019-05-27 14:38] LABS: BASO # 0.1 10^3/uL (0.0-0.2); BASO % 0.4 % (0.0-1.0); EOS # 0.2 10^3/uL (0.0-0.5); EOS % 1.6 % (0.0-3.0); HEMATOCRIT 37.3 % (42.0-52.0); HEMOGLOBIN 11.1 g/dl (13.5-17.5); LYMPH # 0.9 10^3/uL (1.5-5.0); LYMPH % 6.8 % (24.0-44.0); MEAN CORPUSCULAR HEMOGLOBIN 28.5 pg (27.0-33.0); MEAN CORPUSCULAR HGB CONC 29.8 g/dl (32.0-36.5); MEAN CORPUSCULAR VOLUME 95.6 fl (80.0-96.0); MONO # 1.1 10^3/uL (0.0-0.8); MONO % 8.1 % (0.0-5.0); NEUTROPHILS # 10.9 10^3/uL (1.5-8.5); NEUTROPHILS % 82.5 % (36.0-66.0); PLATELET COUNT, AUTOMATED 206 10^3/uL (150-450); WHITE BLOOD COUNT 13.2 10^3/uL (4.0-10.0)
[2019-05-27] MEDS ORDERED: DEXTROSE 50% 50 ML SYRINGE IV STA ×2 (14:41→16:29)
[2019-05-27 14:42] LABS: BLOOD UREA NITROGEN 27 MG/DL (7-18); CARBON DIOXIDE LEVEL 44 MEQ/L (21-32); CHLORIDE LEVEL 95 MEQ/L (98-107); CK-MB VALUE MASS 1.3 NG/ML (<3.6); CPK CREATINE PHOSPHOKINASE 42 U/L (39-308); CREATININE FOR GFR 1.46 MG/DL (0.70-1.30); GLOMERULAR FILTRATION RATE 50.5 (>42); GLUCOSE, FASTING 27 MG/DL (70-100); NT-PRO BNP 145 PG/ML (<125); POTASSIUM SERUM 4.1 MEQ/L (3.5-5.1); SODIUM LEVEL 142 MEQ/L (136-145); TROPONIN I < 0.02 NG/ML (< 0.10)
[2019-05-27] MEDS ORDERED: DEXTROSE 50% 50 ML VIAL As Ordered ONE (14:42)
--- NOTE | 2019-05-27 14:51 | REP ---
Single view chest: 05/27/2019. Indication: Dyspnea. Comparison: 06/22/2019. Findings: Improved aeration of the lungs is present on the current study. There is no pleural effusion or pneumothorax. Cardiomegaly is again noted. Pulmonary vascular congestion is present but improved compared to the previous study. Impression: Findings suggest CHF, but improved compared to the previous study. Electronically Signed by Terrence Gimenez DO 05/27/2019 02:00 P
[2019-05-27 15:49] LABS: INFLUENZA A AMPLIFICATION NEGATIVE (NEGATIVE); INFLUENZA B AMPLIFICATION NEGATIVE (NEGATIVE)
[2019-05-27] MEDS ORDERED: TORS20TA2 PO (15:59)
[2019-05-27] MEDS ORDERED: LISI40TA PO (15:59)
[2019-05-27] MEDS ORDERED: MELO15TA28 PO (15:59)
[2019-05-27] MEDS ORDERED: traMADol 50 MG TAB PO PRN (17:00)
[2019-05-27] MEDS ORDERED: POLYVINYL ALCOHOL OPHTH SOLN 15 ML(LIQUITEARS) OU PRN (17:00)
[2019-05-27] MEDS ORDERED: SENOKOT S TAB PO PRN (17:00)
[2019-05-27] MEDS ORDERED: ACETAMINOPHEN 500 MG TAB PO PRN (17:00)
[2019-05-27 17:12] LABS: ABG BASE EXCESS 15.2 (-2.0-2.0); ABG HCO3 43.6 MEQ/L (22.0-26.0); ABG O2 SATURATION 93.3 % (95.0-99.0); ABG PARTIAL PRESSURE O2 69.8 mmHg (75.0-100.0); ABG pH (ARTERIAL) 7.381 UNITS (7.350-7.450)
[2019-05-27 17:18] LABS: ABG PARTIAL PRESSURE CO2 75.3 mmHg (35.0-45.0)
--- NOTE | 2019-05-27 18:05 | HPEPDOC ---
[facility] Medical History & Physical Date of Admission May 27, 2019 Date of Service: May 27, 2019 Attending Physician: TARAN MAC MD History and Physical CHIEF COMPLAINT: Shortness of breath HISTORY OF PRESENT ILLNESS: Patient's 74-year-old male with a past medical history significant for hypertens ion, diabetes, hypothyroidism, diastolic congestive heart failure and right- sided heart failure, obstructive sleep apnea, morbid obesity, chronic respiratory failure, psoriasis, MGUS. Patient is oxygen dependent on the day, he also requires BiPAP at night with a setting of 18/8, there is reports of noncompliance with his BiPAP. Patient presents today after an episode of shortness of breath that started last night. He stated, difficulty breathing, denied chest pain, denied any chest discomfort, denies any chest pressure. Patient stated that he waited because he figured it would go away, this morning he got up administered his sliding-scale insulin and had breakfast, by lunchtime he noticed that his shortness of breath had worsened. He was brought by ambulance. On initial evaluation 80. Patient was hypoglycemic, hypokalemic, hyponatremic, with poor to saturation. He was placed on BiPAP due to his CO2 retention. Patient stated that he felt fine after starting BiPAP. Chest x-ray was positive for CHF, but was improved over his previous x-rays. Lasix was given to patient in the ED. His hypoglycemia was also corrected with D5. , Hypertension, diabetes, hypothyroid, diastolic congestive heart failure, obstructive sleep apnea, morbid obesity, chronic respiratory failure, psoriasis, MGUS with elevated IgG G, BiPAP dependent, gout, coronary artery disease, history of kidney stones. PAST SURGICAL HISTORY: Carpal tunnel surgery, right knee surgery, history of colon cancer in 2003 with partial colectomy, last colonoscopy was in 2017. SOCIAL HISTORY: , Denies alcohol, tobacco, patient lives alone. Endplates by walker. FAMILY HISTORY: Noncontributory. Due to recurrence age ALLERGIES: Please see below. REVIEW OF SYSTEMS: ROS CONSTITUTIONAL: No fevers, denies chills, denies weight loss, denies lethargy HEENT: No rhinorrhea, no itchy eyes, no congesion, CARDIOVASCULAR: No murmurs no palpitations and arrhythmias RESPIRATORY: Admits to shortness of breath, GASTROINTESTINAL: No nausea, no vomiting, no difficulty swallowing, no pain with eating, no diarrhea HEMATOLOGICAL: No bleeding GENITOURINARY:No Issues HEMATOLOGIC/LYMPHATIC: Admits to lower extremity swelling PE VITALS: See Below GENERAL APPEARANCE: Morbidly obese, gentleman, resting in bed, with BiPAP SKIN: Psoriatic patches on arms and lower extremities bilaterally LUNGS: Difficult to fully auscultate due to patient's body habitus, rhonchus sounds, no wheezing HEART: Normal S1, S2. No murmurs, no rubs, no gallops ABDOMEN: Soft. No masses. Obese abdomen, no tenderness EXTREMITIES: Moves all extremities equally. No gross deformities. PULSES: 2+ upper and lower extremity . HOME MEDICATIONS: Please see below. LABORATORY DATA: See below. IMAGING: Findings suggestive of CHF with improved compared to previous studies MICROBIOLOGY: Please see below. ASSESSMENT: Patient's 74-year-old male with a past medical history significant for hypertension, diabetes, hypothyroidism, diastolic congestive heart failure and right-sided heart failure, obstructive sleep apnea, morbid obesity, chronic respiratory failure, psoriasis,MGUS. Noncompliant with BiPAP., Presenting with shortness of breath secondary to noncompliance of BiPAP, and CHF. 1. Acute on chronic hypercapnic respiratory failure -chronic respiratory at baseline from MONTSERRAT/CHF, possibly acutely worsened by severe hypoglycemia. -Patient will be admitted to the ICU with BiPAP overnight, settings of 18/8 maintain O2 saturation between 88 and 92, -repeat ABG pending 2. Congestive heart failure, dominantly right-sided heart failure -s/p IV Lasix 80 mg x1 in the ED w/ good urine output -Continue oral Lasix -Fluid restriction of 1500 ml 3. Diabetes, patient presented with hypoglycemia, this has been corrected. -Consistent carb diet -Sliding-scale insulin -Every one hour fingersticks due to persistent hypoglycemia until glucose is within normal range -Hypoglycemic protocol 4. Hypothyroid. Continue home medication 5. Acute on chronic kidney injury, -Patient has stage III kidney disease at baseline, will continue to monitor. 6. Psoriasis, continue current medication 7. DVT prophylaxis: Heparin Attending addendum: I personally saw and examined the patient. I discussed the care and management of this patient with Resident in detail and agree with the plan above. Additional information below: - Acute on chronic hypercapnic respiratory failure, possibly due to severe hypoglycemia, admit to ICU, continue BiPAP, repeat ABG pending, hourly fingersticks until glucose wnl. Vital Signs Vital Signs Date Time Temp Pulse Resp B/P (MAP) Pulse Ox O2 Delivery O2 Flow Rate FiO2 05/27/19 15:45 60 25 144/65 (91) 92 NIPPV (BIPAP/CPAP) 05/27/19 13:46 60 05/27/19 13:26 97.3 Laboratory Data Labs 24H Laboratory Tests 2 05/27/19 13:39: Immature Granulocyte % (Auto) 0.6, Neutrophils (%) (Auto) 82.5H, Lymphocytes (%) (Auto) 6.8L, Monocytes (%) (Auto) 8.1H, Eosinophils (%) (Auto) 1.6, Basophils (%) (Auto) 0.4, Neutrophils # (Auto) 10.9H, Lymphocytes # (Auto) 0.9L, Monocytes # (Auto) 1.1H, Eosinophils # (Auto) 0.2, Basophils # (Auto) 0.1, Nucleated Red Blood Cells % (auto) 0.0, Blood Gas Bicarbonate Standard 37.2H, Arterial Blood pH 7.295L, Arterial Blood Partial Pressure CO2 91.8*H, Arterial Blood Partial Pressure O2 82.8, Arterial Blood Total CO2 46.5H, Arterial Blood HCO3 43.6H, Arterial Blood Base Excess 13.5H, Arterial Blood Oxygen Saturation 94.6L, Lactic Acid Level 0.9 05/27/19 13:45: Anion Gap 3L, Glomerular Filtration Rate 50.5, Calcium Level 9.0, Total Creatine Kinase 42, Creatine Kinase MB 1.3, Creatine Kinase MB Relative Index 3.10, Troponin I < 0.02, WT-Vvf-P-Type Natriuretic Peptide 145H, Thyroid Stimulating Hormone (TSH) 1.880 05/27/19 14:54: Bedside Glucose (Misc Panel) 91 05/27/19 15:09: Influenza Type A (RT-PCR) NEGATIVE, Influenza Type B (RT-PCR) NEGATIVE 05/27/19 16:28: Bedside Glucose (Misc Panel) 49L 05/27/19 16:47: Bedside Glucose (Misc Panel) 106 05/27/19 16:56: Blood Gas Bicarbonate Standard 39.0H, Arterial Blood pH 7.381, Arterial Blood Partial Pressure CO2 75.3*H, Arterial Blood Partial Pressure O2 69.8L, Arterial Blood Total CO2 46.0H, Arterial Blood HCO3 43.6H, Arterial Blood Base Excess 15.2H, Arterial Blood Oxygen Saturation 93.3L CBC/BMP Laboratory Tests 05/27/19 13:39 05/27/19 13:45 Microbiology Microbiology 05/27/19 Blood Culture, Received Pending 05/27/19 Blood Culture, Received Pending Home Medications Scheduled Allopurinol (Zyloprim) 300 Mg Tab, 300 MG PO DAILY Amlodipine Besylate (Amlodipine Besylate) 10 Mg Tablet, 5 MG PO DAILY Aspirin (Aspirin) 81 Mg Tab.chew, 81 MG PO DAILY Atenolol (Atenolol) 100 Mg Tablet, 100 MG PO DAILY Cholecalciferol (Vitamin D3) (Vitamin D3) 1,000 Unit Tab, 1,000 UNIT PO Q2D ALTERNATES every other day with 2 1000 unit tablets Cholecalciferol (Vitamin D3) (Vitamin D3) 1,000 Unit Tablet, 2,000 UNIT PO Q2D ALTERNATES WITH 1 1000 UNIT TABLET EVERY OTHER DAY Cyanocobalamin (Vitamin B-12) (Vitamin B-12) 500 Mcg Tab, 500 MCG PO QHS Ferrous Sulfate (Ferrous Sulfate) 325 Mg Tab, 325 MG PO BID Folic Acid (Folic Acid) 1 Mg Tab, 1 MG PO QHS Insulin Aspart (Novolog Flexpen) 100 Unit/1 Ml Insuln.pen, 1 DOSE SC AC PER SLIDING SCALE Insulin Glargine,Hum.rec.anlog (Lantus Solostar) 100 Unit/1 Ml Insuln.pen, 80 UNITS SC QHS Levothyroxine Sodium (Levoxyl) 200 Mcg Tab, 200 MCG PO DAILY Lisinopril (Lisinopril) 40 Mg Tablet, 40 MG PO DAILY Potassium Citrate (Potassium Citrate ER) 15 Meq Tab, 15 MEQ PO BID Ranitidine HCl (Ranitidine HCl) 300 Mg Tab, 1 TAB PO QHS Spironolactone (Spironolactone) 25 Mg Tab, 25 MG PO QHS Terazosin HCl (Terazosin HCl) 1 Mg Cap, 1 MG PO QHS Torsemide (Torsemide) 20 Mg Tablet, 40 MG PO DAILY Scheduled PRN Acetaminophen (Acetaminophen) 500 Mg Tablet, 500 MG PO Q4H PRN for PAIN Dextrose (Glucose) 4 Gm Tab.chew, 4 CHW PO PRN PRN for LOW BLOOD SUGAR NEEDED FOR BLOOD SUGAR BELOW 70, REPEAT BLOOD GLUCOSE TESTING IN 15 MINUTES AND RE-TREAT UNTIL ABOVE 70 Meloxicam (Meloxicam) 15 Mg Tablet, 7.5 MG PO DAILY PRN for PAIN Polyvinyl Alcohol (Artificial Tears) 1.4 % Мария, 1 DROP OU BID PRN for DRY EYES Sennosides/Docusate Sodium (Senna-S Tablet) 1 Tab Tab, 1 TAB PO BID PRN for CONSTIPATION Tramadol HCl (Tramadol HCl) 50 Mg Tablet, 50 MG PO QID PRN for PAIN Allergies Coded Allergies: codeine (Verified Allergy, Intermediate, Hives, 05/27/19) GME ATTESTATION GME ATTESTATION My faculty preceptor for this patient encounter was physically present during the encounter and was fully available. All aspects of the patient interview, examination, medical decision making process, and medical care plan development were reviewed and approved by the faculty preceptor. The faculty preceptor is aware and concurs with the plan as stated in the body of this note and will attest to such by his/her cosignature. DEVYN BOWERS DO May 27, 2019 18:05 TARAN MAC MD May 28, 2019 07:35
[2019-05-27 20:17] VITALS: BP 133/87
[2019-05-27] MEDS: ALBUTEROL SULFATE 2.5 MG/0.5 ML INH NEB SOLN NEB SCH (20:29)
[2019-05-27 20:30] VITALS: O2SAT 92
[2019-05-27] MEDS ORDERED: GLUCAGON FOR INJ 1 MG VIAL (J1610) SC PRN (20:30)
[2019-05-27] MEDS ORDERED: DEXTROSE 50% 50 ML SYRINGE IV PRN (20:30)
[2019-05-27] MEDS ORDERED: GLUCOSE 4 GM CHEW TABLET PO PRN (20:30)
[2019-05-27 21:00] VITALS: BP 121/79
[2019-05-27] MEDS: CHLORHEXIDINE GLUCONATE 0.12 % 15ML UDC (PERIDEX ORAL RINSE) MT SCH (21:04)
[2019-05-27] MEDS: FERROUS SULFATE 325MG TAB PO SCH (21:05)
[2019-05-27] MEDS: FOLIC ACID 1 MG TAB PO SCH (21:05)
[2019-05-27] MEDS: CYANOCOBALAMIN 500 MCG TAB PO SCH (21:05)
[2019-05-27] MEDS: HEPARIN SOD (PORCINE) 5000 UNITS/ML VIAL SC SCH (21:05)
[2019-05-27] MEDS: SPIRONOLACTONE 25 MG TAB PO SCH (21:05)
[2019-05-27] MEDS: TERAZOSIN 1 MG CAP PO SCH (21:59)
[2019-05-27 22:00] VITALS: BP 116/56
[2019-05-27 23:00] VITALS: BP 127/61
[2019-05-27] MEDS ORDERED: FLUBLOK(EGG FREE)(QUAD)INFLUENZA VACC 0.5ML SYRINGE (90682)18YRS&OLDER IM PRN (23:30)
[2019-05-27] MEDS: HumaLOG INSULIN (NovoLOG) PER UNIT SC SCH (23:37)
[2019-05-28] VITALS (22 sets, daily range): BP systolic 89–143; BP diastolic 42–64; O2SAT 92–96
[2019-05-28 05:09] LABS: HEMATOCRIT 33.7 % (42.0-52.0); HEMOGLOBIN 10.4 g/dl (13.5-17.5); MEAN CORPUSCULAR HEMOGLOBIN 27.6 pg (27.0-33.0); MEAN CORPUSCULAR HGB CONC 30.9 g/dl (32.0-36.5); MEAN CORPUSCULAR VOLUME 89.4 fl (80.0-96.0); PLATELET COUNT, AUTOMATED 192 10^3/uL (150-450); RED BLOOD COUNT 3.77 10^6/uL (4.30-6.10); WHITE BLOOD COUNT 7.5 10^3/uL (4.0-10.0)
[2019-05-28 05:31] LABS: PHOSPHORUS LEVEL 2.5 MG/DL (2.5-4.9)
[2019-05-28 05:32] LABS: CALCIUM LEVEL 8.7 MG/DL (8.8-10.2); CREATININE FOR GFR 1.48 MG/DL (0.70-1.30); GLOMERULAR FILTRATION RATE 49.7 (>42); POTASSIUM SERUM 4.3 MEQ/L (3.5-5.1)
[2019-05-28 06:08] LABS: ABG BASE EXCESS 13.9 (-2.0-2.0); ABG HCO3 38.2 MEQ/L (22.0-26.0); ABG O2 SATURATION 96.1 % (95.0-99.0); ABG PARTIAL PRESSURE CO2 46.8 mmHg (35.0-45.0); ABG PARTIAL PRESSURE O2 74.3 mmHg (75.0-100.0); ABG STANDARD HCO3 37.7 MEQ/L (22.0-26.0); ABG TOTAL CO2 39.7 MEQ/L (23.0-31.0)
--- NOTE | 2019-05-28 06:18 | ECGEPIP ---
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
[2019-05-28] MEDS: LEVOTHYROXINE 100MCG TABLET (0.1MG) PO SCH (06:20)
[2019-05-28] MEDS: HEPARIN SOD (PORCINE) 5000 UNITS/ML VIAL SC SCH ×3 (06:20→21:09)
[2019-05-28] MEDS: ALBUTEROL SULFATE 2.5 MG/0.5 ML INH NEB SOLN NEB SCH ×4 (07:48→19:37)
[2019-05-28] MEDS ORDERED: TORSEMIDE 20 MG TAB PO SCH (09:00)
[2019-05-28] MEDS: HumaLOG INSULIN (NovoLOG) PER UNIT SC SCH ×4 (09:13→21:00)
[2019-05-28] MEDS: PANTOPRAZOLE 40MG INJ (PROTONIX) (C9113) IV SCH (09:13)
[2019-05-28] MEDS: VITAMIN D 1,000 INTERNATIONAL UNITS TABLET PO SCH (09:14)
[2019-05-28] MEDS: ATENOLOL 50 MG TAB PO SCH (09:15)
[2019-05-28] MEDS: FUROSEMIDE 100 MG/10 ML VIAL (J1940) IV SCH ×2 (09:16→17:27)
[2019-05-28] MEDS: POTASSIUM CHLORIDE 10 MEQ SR TABLET PO SCH (09:17)
[2019-05-28] MEDS: ASPIRIN 81 MG CHEW TABLET PO SCH (09:17)
[2019-05-28] MEDS: FERROUS SULFATE 325MG TAB PO SCH ×2 (09:17→21:09)
[2019-05-28] MEDS: ALLOPURINOL 300 MG TAB PO SCH (09:18)
[2019-05-28] MEDS: amLODIPine 5 MG TAB PO SCH (09:18)
[2019-05-28] MEDS: LISINOPRIL 40 MG TAB PO SCH (09:22)
--- NOTE | 2019-05-28 10:09 | IPNPDOC ---
Date Seen The patient was seen on 05/28/19. Progress Note SUBJECTIVE: Patient was seen this morning, before and after being taken off of BiPAP. Prior to BiPAP removal, he was awake and comfortable and denied any shortness of breath. He felt he was ready to come off BiPAP and complained that it was annoying him. Seeing him after BiPAP removal, patient is sitting up comfortably eating breakfast. He denies any shortness of breath, chest pain, dizziness, weakness. OBJECTIVE PHYSICAL EXAMINATION: VITAL SIGNS: Please see below. GENERAL: Patient is pleasant and cooperative, sitting up comfortably in bed, alert and oriented in no acute distress. on nasal cannula 2L HEENT: Normocephalic, atraumatic. No scleral icterus. PERRLA. EOMI. No nasal discharge. No JVD noted. No tracheal deviation. No lymphadenopathy appreciated CARDIOVASCULAR: Regular rate and rhythm. Normal S1 and S2. No murmurs, gallops or rubs noted RESPIRATORY: Decreased lung sounds bilaterally. No accessory muscle use. ABDOMINAL: Soft, nontender, obese, nondistened. Bowel sounds present. EXTREMITIES:. 2/4 pulses noted in UE. Regular capillary refill. Pulses unable to be palpated in LE due to ankle edema. Multiple sites of psoriatic plaques noted extensor surfaces of arms and legs. 1+ pitting edema noted b/l in lower extremities. NEUROLOGICAL: A&O x3 to person, place, and time. Spontaneous movements of all extremities. CN 2-12 grossly intact. No focal deficits noted PSYCHOLOGICAL: Mood and affect were appropriate LABORATORY DATA, MICROBIOLOGY: Please see below. Imagin05/27/2019. Chest x-ray: Findings suggest CHF, but improved compared to previous study ASSESSMENT AND PLAN: This is a 74-year-old white male with past medical history of chronic respiratory failure(O2 dep, BiPaP dependant at night), HTN, DM, diastolic CHF, Right sided HF, CAD, OSD, Psoriasis, Gout and MGUS presenting to the hospital for acute on chronic respiratory failure and altered mental status found to have hypercapnic respiratory acidosis and hypoglycemia. PROBLEMS: 1. Acute on chronic hypercapnic respiratory failure: -Pt denies SOB, ABG showed improvement of hypercapnic resp acidosis. -BiPAP DCd, pt appears comfortable on nasal cannula 2L, which he uses at home. -Maintain O2 sats above 92% -PT evaluation and treatment 2. Acute decompensated Congestive heart failure, dominantly right-sided heart failure / diastolic: -Pt continues to appear somewhat fluid overloaded. -hold home PO torsemide, pt started on furosemide 80 mg IV BID -Fluid restriction of 1500 ml 3. Diabetes, patient presented with hypoglycemia which has resolved. -Hypoglycemia treated with D5 overnight with improvement. FBS this morning was 240 -Consistent carb diet, Sliding-scale insulin while inpatient, hypoglycemia protocol 4. Hypothyroid -Continue home medication 5. LAURI on CKD: -stable, monitor BMP daily -Patient has stage III kidney disease at baseline -d/c wang today 6. Psoriasis -continue current medication DVT prophylaxis: Heparin 5000U q8h sc DISPOSITION: Inpatient pending continued improvement in respiratory status and further monitoring of blood glucose levels VS, I&O, 24H, Fishbone Vital Signs/I&O Vital Signs Date Time Temp Pulse Resp B/P (MAP) Pulse Ox O2 Delivery O2 Flow Rate FiO2 05/28/19 09:18 64 143/62 05/28/19 07:49 30 05/28/19 07:48 96 BIPAP/CPAP 05/28/19 04:00 98.7 16 I&O- Last 24 Hours up to 6 AM 05/28/19 06:00 Intake Total 600 ml Output Total 2700 ml Balance -2100 ml Laboratory Data 24H LABS Laboratory Tests 2 05/27/19 13:39: Immature Granulocyte % (Auto) 0.6, Neutrophils (%) (Auto) 82.5H, Lymphocytes (%) (Auto) 6.8L, Monocytes (%) (Auto) 8.1H, Eosinophils (%) (Auto) 1.6, Basophils (%) (Auto) 0.4, Neutrophils # (Auto) 10.9H, Lymphocytes # (Auto) 0.9L, Monocytes # (Auto) 1.1H, Eosinophils # (Auto) 0.2, Basophils # (Auto) 0.1, Nucleated Red Blood Cells % (auto) 0.0, Blood Gas Bicarbonate Standard 37.2H, Arterial Blood pH 7.295L, Arterial Blood Partial Pressure CO2 91.8*H, Arterial Blood Partial Pressure O2 82.8, Arterial Blood Total CO2 46.5H, Arterial Blood HCO3 43.6H, Arterial Blood Base Excess 13.5H, Arterial Blood Oxygen Saturation 94.6L, Lactic Acid Level 0.9 05/27/19 13:45: Anion Gap 3L, Glomerular Filtration Rate 50.5, Calcium Level 9.0, Total Creatine Kinase 42, Creatine Kinase MB 1.3, Creatine Kinase MB Relative Index 3.10, Troponin I < 0.02, QL-Twa-C-Type Natriuretic Peptide 145H, Thyroid Stimulating Hormone (TSH) 1.880 05/27/19 13:46: 05/27/19 14:54: Bedside Glucose (Misc Panel) 91 05/27/19 15:09: Influenza Type A (RT-PCR) NEGATIVE, Influenza Type B (RT-PCR) NEGATIVE 05/27/19 16:28: Bedside Glucose (Misc Panel) 49L 05/27/19 16:47: Bedside Glucose (Misc Panel) 106 05/27/19 16:56: Blood Gas Bicarbonate Standard 39.0H, Arterial Blood pH 7.381, Arterial Blood Partial Pressure CO2 75.3*H, Arterial Blood Partial Pressure O2 69.8L, Arterial Blood Total CO2 46.0H, Arterial Blood HCO3 43.6H, Arterial Blood Base Excess 15.2H, Arterial Blood Oxygen Saturation 93.3L 05/27/19 19:45: Bedside Glucose (Misc Panel) 104 05/27/19 20:15: Bedside Glucose (Misc Panel) 87 05/27/19 21:06: Methicillin-Resist S.aureus DNA PCR NOT DETECTED 05/27/19 21:17: Bedside Glucose (Misc Panel) 100 05/27/19 22:10: Bedside Glucose (Misc Panel) 195H 05/27/19 23:16: Bedside Glucose (Misc Panel) 319H 05/28/19 04:49: Nucleated Red Blood Cells % (auto) 0.0, Anion Gap 6L, Glomerular Filtration Rate 49.7, Calcium Level 8.7L, Phosphorus Level 2.5, Magnesium Level 2.0 05/28/19 05:55: Blood Gas Bicarbonate Standard 37.7H, Arterial Blood pH 7.530H, Arterial Blood Partial Pressure CO2 46.8H, Arterial Blood Partial Pressure O2 74.3L, Arterial Blood Total CO2 39.7H, Arterial Blood HCO3 38.2H, Arterial Blood Base Excess 13.9H, Arterial Blood Oxygen Saturation 96.1 CBC/BMP Laboratory Tests 05/27/19 13:39 05/27/19 13:45 05/28/19 04:49 Microbiology Microbiology 05/27/19 Blood Culture, Received Pending 05/27/19 Blood Culture, Received Pending GME ATTESTATION GME ATTESTATION My faculty preceptor for this patient encounter was physically present during the encounter and was fully available. All aspects of the patient interview, examination, medical decision making process, and medical care plan development were reviewed and approved by the faculty preceptor. The faculty preceptor is aware and concurs with the plan as stated in the body of this note and will attest to such by his/her cosignature. ATTENDING NOTE I, Christiane Rae, have independently examined this patient and performed my own physical exam, as well as reviewed the documentation and edited where necessary. I have discussed in detail with the resident / student the findings and plan of treatment as documented by the resident / student and edited their note. I agree with their findings and treatment plan and have edited their documentation. I will continue to follow the patient during this hospital stay. Plan: - Discontinue Oral Torsemide - Start Furosemide 80 IV BID - DC Wang catheter - Start Physical therapy - Anticipate downgrade within 24 hours - Table top BIPAP CHAYA PATEL OMS-3 May 28, 2019 10:09 JEANNETTE SALAZAR PGY-1 May 28, 2019 11:00 CHRISTIANE RAE MD May 28, 2019 14:31
[2019-05-28] MEDS: CHLORHEXIDINE GLUCONATE 0.12 % 15ML UDC (PERIDEX ORAL RINSE) MT SCH ×2 (10:10→21:08)
[2019-05-28] MEDS: FOLIC ACID 1 MG TAB PO SCH (21:09)
[2019-05-28] MEDS: SPIRONOLACTONE 25 MG TAB PO SCH (21:09)
[2019-05-28] MEDS: CYANOCOBALAMIN 500 MCG TAB PO SCH (21:09)
[2019-05-28] MEDS: TERAZOSIN 1 MG CAP PO SCH (21:25)
[2019-05-29] VITALS (10 sets, daily range): BP systolic 95–138; BP diastolic 47–63
--- NOTE | 2019-05-29 03:22 | REPVR ---
PROCEDURE INFORMATION: Exam: US Duplex Right Lower Extremity Veins, Limited Exam date and time: 05/29/2019 2:51 AM Clinical history: 74 years old, male; Edema, localized and other: +homans; Lower extremity, right; Additional info: Swelling, +homans sign, R/O dvt TECHNIQUE: Imaging protocol: Real-time Duplex ultrasound of the Right Lower Extremity with 2-D hatch scale, color Doppler flow and spectral waveform analysis with image documentation. Limited exam was focused on the right lower extremity veins. COMPARISON: US Duplex, Ext LOWER veins, bilat 01/20/2019 11:58 AM FINDINGS: Right deep veins: Unremarkable. The common femoral, femoral, proximal profunda femoral and popliteal veins are patent without thrombus. Normal Doppler waveforms. Normal compressibility and/or augmentation response. Right superficial veins: Unremarkable. Saphenofemoral junction is patent without thrombus. Soft tissues: Unremarkable. IMPRESSION: No acute findings. No evidence of deep vein thrombosis. Electronically signed by: John Molina On 05/29/2019 03:22:03 AM
[2019-05-29 05:02] LABS: HEMATOCRIT 33.6 % (42.0-52.0); HEMOGLOBIN 10.5 g/dl (13.5-17.5); MEAN CORPUSCULAR HGB CONC 31.3 g/dl (32.0-36.5); MEAN CORPUSCULAR VOLUME 89.6 fl (80.0-96.0); PLATELET COUNT, AUTOMATED 208 10^3/uL (150-450); RED BLOOD COUNT 3.75 10^6/uL (4.30-6.10); WHITE BLOOD COUNT 7.7 10^3/uL (4.0-10.0)
[2019-05-29 05:17] LABS: CALCIUM LEVEL 8.7 MG/DL (8.8-10.2); CREATININE FOR GFR 1.47 MG/DL (0.70-1.30); GLOMERULAR FILTRATION RATE 50.1 (>42); MAGNESIUM LEVEL 1.8 MG/DL (1.8-2.4); POTASSIUM SERUM 3.9 MEQ/L (3.5-5.1)
[2019-05-29 06:06] LABS: ABG BASE EXCESS 16.8 (-2.0-2.0); ABG HCO3 42.8 MEQ/L (22.0-26.0); ABG O2 SATURATION 85.9 % (95.0-99.0); ABG PARTIAL PRESSURE CO2 58.5 mmHg (35.0-45.0); ABG PARTIAL PRESSURE O2 50.3 mmHg (75.0-100.0); ABG STANDARD HCO3 40.5 MEQ/L (22.0-26.0); ABG TOTAL CO2 44.6 MEQ/L (23.0-31.0); ABG pH (ARTERIAL) 7.482 UNITS (7.350-7.450)
[2019-05-29] MEDS: LEVOTHYROXINE 100MCG TABLET (0.1MG) PO SCH (06:27)
[2019-05-29] MEDS: HEPARIN SOD (PORCINE) 5000 UNITS/ML VIAL SC SCH ×3 (06:27→20:58)
[2019-05-29] MEDS: ALBUTEROL SULFATE 2.5 MG/0.5 ML INH NEB SOLN NEB SCH ×4 (07:56→21:31)
[2019-05-29] MEDS: HumaLOG INSULIN (NovoLOG) PER UNIT SC SCH ×4 (08:16→20:58)
[2019-05-29] MEDS: ATENOLOL 50 MG TAB PO SCH (08:16)
[2019-05-29] MEDS: CHLORHEXIDINE GLUCONATE 0.12 % 15ML UDC (PERIDEX ORAL RINSE) MT SCH ×2 (08:16→20:56)
[2019-05-29] MEDS: ASPIRIN 81 MG CHEW TABLET PO SCH (08:16)
[2019-05-29] MEDS: ALLOPURINOL 300 MG TAB PO SCH (08:17)
[2019-05-29] MEDS: FERROUS SULFATE 325MG TAB PO SCH ×2 (08:17→20:56)
[2019-05-29] MEDS: PANTOPRAZOLE 40MG INJ (PROTONIX) (C9113) IV SCH (08:18)
[2019-05-29] MEDS: POTASSIUM CHLORIDE 10 MEQ SR TABLET PO SCH (08:18)
[2019-05-29] MEDS: amLODIPine 5 MG TAB PO SCH (08:18)
[2019-05-29] MEDS: NYSTATIN 100,000 UNITS/GM TOPICAL PWD 15 GM TOP SCH ×2 (08:34→20:58)
[2019-05-29] MEDS: LISINOPRIL 40 MG TAB PO SCH (08:34)
[2019-05-29] MEDS: FUROSEMIDE 100 MG/10 ML VIAL (J1940) IV SCH ×2 (08:34→16:47)
[2019-05-29] MEDS ORDERED: VITAMIN D 1,000 INTERNATIONAL UNITS TABLET PO SCH (09:00)
--- NOTE | 2019-05-29 10:18 | IPNPDOC ---
Date Seen The patient was seen on 05/29/19. Progress Note SUBJECTIVE: Patient was seen at bedside today. He reported improvement compared to yesterday. He denies any shortness of breath. He claims he slept well without any episodes of dyspnea. He still reports pain in his right ankle but explains this is common after a fracture he had years ago. Denies any chest pain, nausea, vomiting, dizziness. OBJECTIVE PHYSICAL EXAMINATION: VITAL SIGNS: Please see below. GENERAL: Patient is pleasant and cooperative, sitting up comfortably in bed, alert and oriented in no acute distress on nasal cannula 2L HEENT: Normocephalic, atraumatic. No scleral icterus. PERRLA. EOMI. No nasal discharge. No JVD noted. No tracheal deviation. No lymphadenopathy appreciated CARDIOVASCULAR: Regular rate and rhythm. Normal S1 and S2. No murmurs, gallops or rubs noted RESPIRATORY: Rhonchi heard b/l. Mild crackles heard in bases b/l. No accessory muscle use. ABDOMINAL: Soft, nontender, obese, nondistended. Bowel sounds present. EXTREMITIES:. 2/4 pulses noted in UE. Regular capillary refill. Pulses unable to be palpated in LE due to ankle edema. Multiple sites of psoriatic plaques noted extensor surfaces of arms and legs. 1+ pitting edema noted b/l in lower ext remities. NEUROLOGICAL: A&O x3 to person, place, and time. Spontaneous movements of all extremities. CN 2-12 grossly intact. No focal deficits noted PSYCHOLOGICAL: Mood and affect were appropriate LABORATORY DATA, MICROBIOLOGY: Please see below. Imagin05/27/2019. Chest x-ray: Findings suggest CHF, but improved compared to previous study 05/29/2019. Venous duplex ultrasound: No acute findings. No evidence of deep vein thrombosis ASSESSMENT AND PLAN: This is a 74-year-old white male with past medical history of chronic respiratory failure(O2 dep, BiPaP dependant at night), HTN, DM, diast olic CHF, Right sided HF, CAD, OSD, Psoriasis, Gout and MGUS presenting to the hospital for acute on chronic respiratory failure and altered mental status found to have hypercapnic respiratory acidosis and hypoglycemia. PROBLEMS: 1. Acute on chronic hypercapnic respiratory failure: -ABG this morning showed elevated pCO2 at 58.5 from 46.8 yesterday as well as decreased O2 Sat at 85.9% -Pt appears stable and denies SOB this morning, no longer requires ICU level care and has been transfered to PCU. -Unclear if pt is on BiPAP or CPAP at night at home as he reported BiPAP to some providers and CPAP to others, plan to get in touch with his outpatient providers to verify his home treatment plan and continue with this overnight tonight. -2L O2 during the day, Maintain O2 sats above 92% 2. Acute decompensated Congestive heart failure, dominantly right-sided heart failure / diastolic: -Lung crackles and pitting edema on Physical exam -Pt continues to appear somewhat fluid overloaded. -Continue on furosemide 80 mg IV BID -Fluid restriction of 1500 ml 3. Insulin dependent diabetes with hypoglycemia -Has resolved. -FBS this morning 123 -Sided patient on 40 units Levemir twice a day for basal insulin control, he was on once daily dosing basal insulin at home, which was held on admission due to hypoglycemia. -Consistent carb diet, Sliding-scale insulin while inpatient, hypoglycemia protocol -Pt has some difficulty understanding this diagnosis, proper diet, and how to use sliding scale which he was on at home. Dietary consulted for diabetic teaching. -Plan to discharge on our sliding scale protocol to help prevent further episodes of hypoglycemia 4. Hypothyroid -Continue home medication 5. LAURI on CKD: -stable, monitor BMP daily -Patient has stage III kidney disease at baseline 6. Psoriasis -continue current medication 7. R. Lower Limb pain -Negative Duplex U/S -Pt states this is common after he had a fracture years ago, and his pain is chronic DVT prophylaxis: Heparin 5000U q8h sc DISPOSITION: Inpatient pending continued improvement in respiratory status and further monitoring of blood glucose levels, PT clearance VS, I&O, 24H, [facility] Vital Signs/I&O Vital Signs Date Time Temp Pulse Resp B/P (MAP) Pulse Ox O2 Delivery O2 Flow Rate FiO2 05/29/19 08:47 24 2.0 05/29/19 08:18 62 05/29/19 08:16 116/53 05/29/19 08:00 98.6 93 Nasal Cannula 05/29/19 06:00 30 I&O- Last 24 Hours up to 6 AM 05/29/19 06:00 Intake Total 1650 ml Output Total 3000 ml Balance -1350 ml Laboratory Data 24H LABS Laboratory Tests 2 05/28/19 12:03: Bedside Glucose (Misc Panel) 212H 05/28/19 17:18: Bedside Glucose (Misc Panel) 125H 05/28/19 20:04: Bedside Glucose (Misc Panel) 157H 05/29/19 04:47: Nucleated Red Blood Cells % (auto) 0.0, Anion Gap 2L, Glomerular Filtration Rate 50.1, Calcium Level 8.7L, Magnesium Level 1.8 05/29/19 05:47: Blood Gas Bicarbonate Standard 40.5H, Arterial Blood pH 7.482H, Arterial Blood Partial Pressure CO2 58.5H, Arterial Blood Partial Pressure O2 50.3L, Arterial Blood Total CO2 44.6H, Arterial Blood HCO3 42.8H, Arterial Blood Base Excess 16.8H, Arterial Blood Oxygen Saturation 85.9L CBC/BMP Laboratory Tests 05/29/19 04:47 Microbiology Microbiology 05/27/19 Blood Culture - Preliminary, Resulted No growth after 24 hours . All specim... 05/27/19 Blood Culture - Preliminary, Resulted No growth after 24 hours . All specim... GME ATTESTATION GME ATTESTATION My faculty preceptor for this patient encounter was physically present during the encounter and was fully available. All aspects of the patient interview, examination, medical decision making process, and medical care plan development were reviewed and approved by the faculty preceptor. The faculty preceptor is aware and concurs with the plan as stated in the body of this note and will attest to such by his/her cosignature. ATTENDING NOTE I, Christiane Bravo, have independently examined this patient and performed my own physical exam, as well as reviewed the documentation and edited where necessary. I have discussed in detail with the resident / student the findings and plan of treatment as documented by the resident / student and edited their note. I agree with their findings and treatment plan and have edited their documentation. I will continue to follow the patient during this hospital stay. Plan: - Will downgrade patient to PCU - Will start tabletop CPAP/BIPAP based on outpatient settings - Continue with IV diuretics; plan to adjust to oral diuretics on 05/30/19 - Continue with physical therapy CHAYA PATEL OMS-3 May 29, 2019 10:18 JEANNETTE SALAZAR PGY-1 May 29, 2019 11:35 CHRISTIANE BRAVO MD May 29, 2019 12:42
[2019-05-29] MEDS ORDERED: LEVEMIR (INSULIN DETEMIR) 1 UNITS/0.01ML SC SCH (11:00)
[2019-05-29] MEDS: SPIRONOLACTONE 25 MG TAB PO SCH (20:56)
[2019-05-29] MEDS: TERAZOSIN 1 MG CAP PO SCH (20:56)
[2019-05-29] MEDS: CYANOCOBALAMIN 500 MCG TAB PO SCH (20:56)
[2019-05-29] MEDS: FOLIC ACID 1 MG TAB PO SCH (20:56)
[2019-05-29] MEDS: LEVEMIR (INSULIN DETEMIR) 1 UNITS/0.01ML SC SCH (20:57)
[2019-05-30] VITALS: BP 117/58
[2019-05-30 04:00] VITALS: BP 115/58
[2019-05-30 05:44] LABS: HEMATOCRIT 35.1 % (42.0-52.0); HEMOGLOBIN 10.7 g/dl (13.5-17.5); MEAN CORPUSCULAR HEMOGLOBIN 27.8 pg (27.0-33.0); MEAN CORPUSCULAR HGB CONC 30.5 g/dl (32.0-36.5); MEAN CORPUSCULAR VOLUME 91.2 fl (80.0-96.0); PLATELET COUNT, AUTOMATED 184 10^3/uL (150-450); RED BLOOD COUNT 3.85 10^6/uL (4.30-6.10); WHITE BLOOD COUNT 7.2 10^3/uL (4.0-10.0)
[2019-05-30] MEDS: LEVOTHYROXINE 100MCG TABLET (0.1MG) PO SCH (05:51)
[2019-05-30] MEDS: HEPARIN SOD (PORCINE) 5000 UNITS/ML VIAL SC SCH ×2 (05:51→15:22)
[2019-05-30 06:14] LABS: CALCIUM LEVEL 8.9 MG/DL (8.8-10.2); CREATININE FOR GFR 1.4 MG/DL (0.70-1.30); MAGNESIUM LEVEL 1.8 MG/DL (1.8-2.4); POTASSIUM SERUM 3.6 MEQ/L (3.5-5.1)
[2019-05-30] MEDS: HumaLOG INSULIN (NovoLOG) PER UNIT SC SCH ×3 (07:49→18:03)
[2019-05-30 08:00] VITALS: BP 114/56
[2019-05-30] MEDS: ALBUTEROL SULFATE 2.5 MG/0.5 ML INH NEB SOLN NEB SCH ×3 (08:06→15:55)
[2019-05-30] MEDS: PANTOPRAZOLE 40MG INJ (PROTONIX) (C9113) IV SCH (09:04)
[2019-05-30] MEDS: LEVEMIR (INSULIN DETEMIR) 1 UNITS/0.01ML SC SCH (09:05)
[2019-05-30] MEDS: POTASSIUM CHLORIDE 10 MEQ SR TABLET PO SCH (09:05)
[2019-05-30] MEDS: ASPIRIN 81 MG CHEW TABLET PO SCH (09:05)
[2019-05-30] MEDS: LISINOPRIL 40 MG TAB PO SCH (09:05)
[2019-05-30] MEDS: CHLORHEXIDINE GLUCONATE 0.12 % 15ML UDC (PERIDEX ORAL RINSE) MT SCH (09:05)
[2019-05-30 09:06] VITALS: BP 114/56
[2019-05-30] MEDS: FERROUS SULFATE 325MG TAB PO SCH (09:06)
[2019-05-30] MEDS: ATENOLOL 50 MG TAB PO SCH (09:06)
[2019-05-30] MEDS: ALLOPURINOL 300 MG TAB PO SCH (09:06)
[2019-05-30] MEDS: amLODIPine 5 MG TAB PO SCH (09:06)
[2019-05-30] MEDS: VITAMIN D 1,000 INTERNATIONAL UNITS TABLET PO SCH (09:06)
[2019-05-30] MEDS: NYSTATIN 100,000 UNITS/GM TOPICAL PWD 15 GM TOP SCH (09:07)
[2019-05-30] MEDS: FUROSEMIDE 80 MG TAB PO SCH ×2 (09:07→17:37)
[2019-05-30] MEDS ORDERED: INSUDET SC (10:45)
[2019-05-30] MEDS ORDERED: FURO80TA2 PO ×2 (10:45→17:05)
[2019-05-30] MEDS ORDERED: INSUHUMDS SC ×2 (10:45)
--- NOTE | 2019-05-30 11:46 | DS.PDOC ---
Discharge Summary General Date of Admission May 27, 2019 at 16:46 Date of Discharge May 30, 2019 Attending Physician: CHRISTIANE BRAVO MD Discharge Summary PROCEDURES PERFORMED DURING STAY: None. ADMITTING DIAGNOSES: 1. Acute on Chronic Hypercapnic Respiratory Failure 2. Decompensated diastolic heart failure; component of right sided heart failure 3. Diabetes 4. Hypoglycemia 5. Acute on Chronic Kidney Injury 6. Psoriasis 7. HTN 8. Hypothyroidism 9. [place] COMPLICATIONS/CHIEF COMPLAINT: Acute on chronic Respiratory Failure W/Hypercapnia. HISTORY OF PRESENT ILLNESS: Patient's 74-year-old male with a past medical history significant for hypertension, diabetes, hypothyroidism, diastolic congestive heart failure and right-sided heart failure, obstructive sleep apnea, morbid obesity, chronic respiratory failure, psoriasis, MGUS. Patient is oxygen dependent on the day, he also requires BiPAP at night with a setting of 18/8, there is reports of noncompliance with his BiPAP. Patient presents today after an episode of shortness of breath that started last night. He stated, difficulty breathing, denied chest pain, denied any chest discomfort, denies any chest pressure. Patient stated that he waited because he figured it would go away, this morning he got up administered his sliding-scale insulin and had breakfast, by lunchtime he noticed that his shortness of breath had worsened. He was brought by ambulance. On initial evaluation 80. Patient was hypoglycemic, hypokalemic, hyponatremic, with poor to saturation. He was placed on BiPAP due to his CO2 retention. Patient stated that he felt fine after starting BiPAP. Chest x-ray was positive for CHF, but was improved over his previous x-rays. Lasix was given to patient in the ED. His hypoglycemia was also corrected with D5. Hypertension, diabetes, hypothyroid, diastolic congestive heart failure, obstructive sleep apnea, morbid obesity, chronic respiratory failure, psoriasis, MGUS with elevated IgG G, BiPAP dependent, gout, coronary artery disease, history of kidney stones. HOSPITAL COURSE: ECG showed no evidence of acute NE. Chest x-ray was ordered. Influenza and MRSA screen was negative. Patient was administered dexamethasone IV. Patient was started on BiPAP with oxygen. Blood cultures were sent. ABG showed evidence of hypercapnic respiratory acidosis. CBC showed elevated white blood cells at 13.2 Cardiac markers were negative. TSH was normal. Fasting glucose was low at 27. Creatinine was elevated at 1.46. Administered IV D50 and furosemide. Hourly blood glucose measurements were taken until resolved at 106. Patient was given albuterol nebulizers, pantoprazole, and heparin for DVT prophylaxis. ProCalcitonin was negative. Patient was restarted on home medications. Started on sliding scale insulin and consistent carbohydrate diet. ABG showed resolution of hypercapnic respiratory acidosis. Patient was taken off of BiPAP during the day and continued on 2 L of oxygen via nasal cannula. Fasting blood glucose was stable around 140. Creatinine levels trended downwards to 1.4. Patient's lower extremity edema improved. White blood cell count trended downwards to 7.2. Patient complained of right lower limb pain. Vascular ultrasound was ordered and was negative for DVT. Patient continued to improve, was educated on nightly CPAP usage and diabetes DISCHARGE MEDICATIONS: Please see below. ALLERGIES: Please see below. PHYSICAL EXAMINATION ON DISCHARGE: VITAL SIGNS: Please see below. GENERAL: Patient is pleasant and cooperative, sitting up comfortably in bed, alert and oriented in no acute distress on nasal cannula 2L HEENT: Normocephalic, atraumatic. No scleral icterus. PERRLA. EOMI. No nasal di scharge. No JVD noted. No tracheal deviation. No lymphadenopathy appreciated CARDIOVASCULAR: Regular rate and rhythm. Normal S1 and S2. No murmurs, gallops or rubs noted RESPIRATORY: Clear to Auscultation b/l. No accessory muscle use. ABDOMINAL: Soft, nontender, obese, nondistended. Bowel sounds present. EXTREMITIES:. 2/4 pulses noted. Regular capillary refill. Multiple sites of psoriatic plaques noted extensor surfaces of arms and legs. 1+ pitting edema noted b/l in lower extremities. NEUROLOGICAL: A&O x3 to person, place, and time. Spontaneous movements of all extremities. CN 2-12 grossly intact. No focal deficits noted PSYCHOLOGICAL: Mood and affect were appropriate LABORATORY DATA: Please see below. Imagin05/27/2019. Chest x-ray: Findings suggest CHF, but improved compared to previous study 05/29/2019. Venous duplex ultrasound: No acute findings. No evidence of deep vein thrombosis PROGNOSIS: good ACTIVITY: As tolerated. DIET: Consistent Carbohydrate Diet DISCHARGE PLAN: -Follow up with PCP within 7 days -Take medications as prescribed -Continue on home O2 therapy -Utilize CPAP during evenings -Remain compliant with treatment plan medications - Return to the ER if you experience any problems DISCHARGE CONDITION: Stable. TIME SPENT ON DISCHARGE: 35 minutes. Vital Signs/I&Os Vital Signs Date Time Temp Pulse Resp B/P (MAP) Pulse Ox O2 Delivery O2 Flow Rate FiO2 05/30/19 09:06 68 114/56 05/30/19 08:00 98.8 22 91 Nasal Cannula 2.0 05/29/19 06:00 30 I&O- Last 24 Hours up to 6 AM 05/30/19 06:00 Intake Total 920 ml Output Total 3650 ml Balance -2730 ml Laboratory Data Labs 24H Laboratory Tests 2 05/29/19 12:01: Bedside Glucose (Misc Panel) 179H 05/29/19 16:48: Bedside Glucose (Misc Panel) 183H 05/29/19 20:30: Bedside Glucose (Misc Panel) 181H 05/30/19 05:20: Nucleated Red Blood Cells % (auto) 0.0, Anion Gap 4L, Glomerular Filtration Rate 53.0, Calcium Level 8.9, Magnesium Level 1.8 CBC/BMP Laboratory Tests 05/30/19 05:20 FSBS Laboratory Tests Test 05/29/19 12:01 05/29/19 16:48 05/29/19 20:30 Range/Units Bedside Glucose (Misc Panel) 179 183 181 83-110 MG/DL Microbiology Microbiology 05/27/19 Blood Culture - Preliminary, Resulted No Growth after 48 hours. All Specime... 05/27/19 Blood Culture - Preliminary, Resulted No Growth after 48 hours. All Specime... Discharge Medications Scheduled Allopurinol (Zyloprim) 300 Mg Tab, 300 MG PO DAILY, (Reported) Amlodipine Besylate (Amlodipine Besylate) 10 Mg Tablet, 5 MG PO DAILY, (Reported) Aspirin (Aspirin) 81 Mg Tab.chew, 81 MG PO DAILY, (Reported) Atenolol (Atenolol) 100 Mg Tablet, 100 MG PO DAILY, (Reported) Cholecalciferol (Vitamin D3) (Vitamin D3) 1,000 Unit Tab, 1,000 UNIT PO Q2D, (Reported) ALTERNATES every other day with 2 1000 unit tablets Cholecalciferol (Vitamin D3) (Vitamin D3) 1,000 Unit Tablet, 2,000 UNIT PO Q2D, (Reported) ALTERNATES WITH 1 1000 UNIT TABLET EVERY OTHER DAY Cyanocobalamin (Vitamin B-12) (Vitamin B-12) 500 Mcg Tab, 500 MCG PO QHS, (Reported) Ferrous Sulfate (Ferrous Sulfate) 325 Mg Tab, 325 MG PO BID, (Reported) Folic Acid (Folic Acid) 1 Mg Tab, 1 MG PO QHS, (Reported) Furosemide (Furosemide) 80 Mg Tablet, 80 MG PO BID@09,17 Insulin Detemir (Levemir) 100 Unit/1 Ml Vial, 20 UNITS SC BID Insulin Human Lispro (Humalog) 100 Unit/1 Ml Vial, 0 UNITS SC AC Insulin Human Lispro (Humalog) 100 Unit/1 Ml Vial, 0 UNITS SC QHS Levothyroxine Sodium (Levoxyl) 200 Mcg Tab, 200 MCG PO DAILY, (Reported) Lisinopril (Lisinopril) 40 Mg Tablet, 40 MG PO DAILY, (Reported) Potassium Citrate (Potassium Citrate ER) 15 Meq Tab, 15 MEQ PO BID, (Reported) Ranitidine HCl (Ranitidine HCl) 300 Mg Tab, 1 TAB PO QHS, (Reported) Spironolactone (Spironolactone) 25 Mg Tab, 25 MG PO QHS, (Reported) Terazosin HCl (Terazosin HCl) 1 Mg Cap, 1 MG PO QHS, (Reported) Scheduled PRN Acetaminophen (Acetaminophen) 500 Mg Tablet, 500 MG PO Q4H PRN for PAIN, (Reported) Dextrose (Glucose) 4 Gm Tab.chew, 4 CHW PO PRN PRN for LOW BLOOD SUGAR, (Reported) NEEDED FOR BLOOD SUGAR BELOW 70, REPEAT BLOOD GLUCOSE TESTING IN 15 MINUTES AND RE-TREAT UNTIL ABOVE 70 Meloxicam (Meloxicam) 15 Mg Tablet, 7.5 MG PO DAILY PRN for PAIN, (Reported) Polyvinyl Alcohol (Artificial Tears) 1.4 % Мария, 1 DROP OU BID PRN for DRY EYES, (Reported) Sennosides/Docusate Sodium (Senna-S Tablet) 1 Tab Tab, 1 TAB PO BID PRN for CONSTIPATION, (Reported) Tramadol HCl (Tramadol HCl) 50 Mg Tablet, 50 MG PO QID PRN for PAIN, (Reported) Allergies Coded Allergies: codeine (Verified Allergy, Intermediate, Hives, 05/27/19) GME ATTESTATION GME ATTESTATION My faculty preceptor for this patient encounter was physically present during the encounter and was fully available. All aspects of the patient interview, examination, medical decision making process, and medical care plan development were reviewed and approved by the faculty preceptor. The faculty preceptor is aware and concurs with the plan as stated in the body of this note and will attest to such by his/her cosignature. ATTENDING NOTE I, Christiane Bravo, have independently examined this patient and performed my own physical exam, as well as reviewed the documentation and edited where necessary. I have discussed in detail with the resident / student the findings and plan of treatment as documented by the resident / student and edited their note. I agree with their findings and treatment plan and have edited their documentation. I will continue to follow the patient during this hospital stay. Time spent on discharge 40 minutes CHAYA PATEL OMS-3 May 30, 2019 11:46 CHRISTIANE BRAVO MD May 30, 2019 13:21 JEANNETTE SALAZAR PGY-1 May 30, 2019 14:28
[2019-05-30 12:00] VITALS: BP 93/50
[2019-05-30 16:00] VITALS: BP 101/57
[2019-05-30] MEDS ORDERED: LEVE1INJ5 SC (17:05)
[2019-05-30] MEDS ORDERED: HUMA100I5 SC ×2 (17:05)
== END 2019-05-30 18:21 | disposition home or self-care (01) | DRG 291 ==
LOC: M ED 13:20 → M ED INP 16:46 → M ICU 20:10 → M PCU 05-29 14:48
PROVIDERS: ADMIT Internal Medicine; ATTEND Internal Medicine
DX: I13.0 Hypertensive heart and chronic kidney disease with heart failure and stage 1 through stage 4 chronic kidney disease, or unspecified chronic kidney disease (principal); I50.33 Acute on chronic diastolic (congestive) heart failure; J96.22 Acute and chronic respiratory failure with hypercapnia; E87.1 Hypo-osmolality and hyponatremia; N17.9 Acute kidney failure, unspecified; Z68.42 Body mass index [BMI] 45.0-49.9, adult; I25.10 Atherosclerotic heart disease of native coronary artery without angina pectoris; I50.810 Right heart failure, unspecified; E11.649 Type 2 diabetes mellitus with hypoglycemia without coma; E03.9 Hypothyroidism, unspecified; E87.6 Hypokalemia; G47.33 Obstructive sleep apnea (adult) (pediatric); E66.01 Morbid (severe) obesity due to excess calories; L40.9 Psoriasis, unspecified; D47.2 Monoclonal gammopathy; M10.9 Gout, unspecified; N18.3 Chronic kidney disease, stage 3 (moderate); Z99.81 Dependence on supplemental oxygen; Z91.19 Patient's noncompliance with other medical treatment and regimen; Z79.4 Long term (current) use of insulin; Z88.6 Allergy status to analgesic agent; Z79.899 Other long term (current) drug therapy; Z87.442 Personal history of urinary calculi; Z90.49 Acquired absence of other specified parts of digestive tract; Z79.82 Long term (current) use of aspirin; Z87.81 Personal history of (healed) traumatic fracture; M79.604 Pain in right leg

== ENCOUNTER → 2019-12-25 | Outpatient (REF) | payer MEDICAID, MEDICARE, OTHER ==
[~2019-12-25] MED LIST changes: -ARTIDRO2 OU; +ASPI1CHW3 PO; -ASPI81CH44 PO; +FURO80TA2 PO; +HUMA100I5 SC; +INSUDET SC; +INSUHUMDS SC; +LEVE1INJ5 SC; +MELO15TA28 PO; +POLYOPD OU; +TORS10TA3
== END ==
LOC: M LAB REF 08:20
PROVIDERS: ATTEND Dermatology
DX: C44.310 Basal cell carcinoma of skin of unspecified parts of face (principal); L57.0 Actinic keratosis; L57.8 Other skin changes due to chronic exposure to nonionizing radiation
CPT/HCPCS: 11102; 11103; 88305; 88312; G0463

== ENCOUNTER → 2020-01-21 | Outpatient (REF) | payer MEDICARE, MEDICAID, OTHER | LOC: M LAB REF 15:43 | PROVIDERS: ATTEND Dermatology | DX: C44.310 Basal cell carcinoma of skin of unspecified parts of face (principal) ==

== ENCOUNTER 2021-02-18 11:26 | Inpatient (IN) | payer MEDICAID, MEDICARE, OTHER ==
[~2021-02-18] VITALS: Ht 182.9 cm; Wt 154.7 kg
[2021-02-18] VITALS (7 sets, daily range): BP systolic 121–136; BP diastolic 56–63
[~2021-02-18 11:26] MED LIST changes: -AMLO10TA5 PO; +AMLO1TAB25 PO; +CYAN500T14 PO; -CYAN500T8 PO; -LISI40TA PO; +LISI40TA4 PO
[2021-02-18] MEDS ORDERED: ALBUTEROL SULFATE 2.5 MG/0.5 ML INH NEB SOLN INH ONE (11:50)
[2021-02-18] MEDS ORDERED: IPRATROPIUM 0.5MG/ALBUTEROL 2.5MG INH SOL UD 3ML (DUONEB) NEB ONE (11:50)
[2021-02-18] MEDS ORDERED: methylPREDNISolone 125MG 2ML VIAL IV ONE (11:50)
[2021-02-18 12:46] LABS: BASO % 0.1 % (0.0-1.0); LYMPH # 0.5 10^3/uL (1.5-5.0); LYMPH % 2.1 % (24.0-44.0); MEAN CORPUSCULAR HEMOGLOBIN 26.6 pg (27.0-33.0); MEAN CORPUSCULAR HGB CONC 31.3 g/dl (32.0-36.5); MEAN CORPUSCULAR VOLUME 85.1 fl (80.0-96.0); MONO # 1.3 10^3/uL (0.0-0.8); MONO % 5.7 % (2.0-8.0); NEUTROPHILS # 20.3 10^3/uL (1.5-8.5); NEUTROPHILS % 90.8 % (36.0-66.0); PLATELET COUNT, AUTOMATED 281 10^3/uL (150-450); RED BLOOD COUNT 3.76 10^6/uL (4.30-6.10); WHITE BLOOD COUNT 22.4 10^3/uL (4.0-10.0)
[2021-02-18] MEDS ORDERED: NS 1,000 ML IV ONE ×2 (12:55→20:35)
[2021-02-18 13:21] LABS: ACETAMINOPHEN LEVEL < 2.0 UG/ML (10.0-30.0); ALBUMIN 2.2 GM/DL (3.2-5.2); ALT/SGPT 43 U/L (12-78); BILIRUBIN,DIRECT 0.1 MG/DL (0.0-0.2); BILIRUBIN,TOTAL 0.5 MG/DL (0.2-1.0); BLOOD UREA NITROGEN 66 MG/DL (7-18); CALCIUM LEVEL 8.4 MG/DL (8.8-10.2); CARBON DIOXIDE LEVEL 30 MEQ/L (21-32); CHLORIDE LEVEL 94 MEQ/L (98-107); CK-MB VALUE MASS 26.9 NG/ML (<3.6); CPK CREATINE PHOSPHOKINASE 6147 U/L (39-308); CREATININE FOR GFR 4.71 MG/DL (0.70-1.30); ETHYL ALCOHOL (ETHANOL) < 0.003 % (0.000-0.010); GLUCOSE, FASTING 316 MG/DL (70-100); MB/CK RELATIVE INDEX 0.44 (< OR =4); POTASSIUM SERUM 6.5 MEQ/L (3.5-5.1); SALICYLATE LEVEL < 1.7 MG/DL (5.0-30.0); SODIUM LEVEL 131 MEQ/L (136-145); THYROID STIMULATING HORMONE 0.569 uIU/ML (0.358-3.740); TOTAL PROTEIN 7.4 GM/DL (6.4-8.2); TROPONIN I 0.21 NG/ML (< 0.10)
[2021-02-18] MEDS ORDERED: CALCIUM GLUCONATE 1,000 MG in D5W MINI-BAG PLUS 100 ML IV ONE ×2 (13:40→19:00)
[2021-02-18] MEDS ORDERED: AMPICILLIN SOD/SULBACTAM SOD 3 GM in D5W MINI-BAG PLUS 100 ML IV ONE (13:45)
[2021-02-18 13:51] LABS: RSV AMPLIFICATION NEGATIVE (NEGATIVE)
[2021-02-18] MEDS ORDERED: HumuLIN R (REGULAR) INSULIN (NovoLIN R) **100U/ML** PER UNIT SC ONE (14:40)
[2021-02-18 14:58] LABS: AMPHETAMINES LEVEL URINE NEGATIVE (NEGATIVE); BARBITURATES URINE NEGATIVE (NEGATIVE); BENZODIAZEPINES URINE NEGATIVE (NEGATIVE); CANNABINOIDS URINE NEGATIVE (NEGATIVE); COCAINE METABOLITE URINE NEGATIVE (NEGATIVE); METHADONE URINE NEGATIVE (NEGATIVE); OPIATES URINE NEGATIVE (NEGATIVE); PHENCYCLIDINE URINE NEGATIVE (NEGATIVE)
[2021-02-18] MEDS ORDERED: DEXTROSE 50% 50 ML SYRINGE IV STA (15:19)
[2021-02-18] MEDS ORDERED: HumuLIN R (REGULAR) INSULIN (NovoLIN R) **100U/ML** PER UNIT IV STA (15:19)
[2021-02-18] MEDS ORDERED: SODIUM CHLORIDE 0.9% 1000ML IV STA (15:19)
[2021-02-18] MEDS ORDERED: ALBUTEROL 90 MCG/ACT 8GM HFA INHALER INH PRN (15:20)
[2021-02-18] MEDS ORDERED: FLUOCINONIDE 0.05% OINT 15 GM TOP PRN (15:20)
[2021-02-18] MEDS ORDERED: ALLO300T2 PO (15:29)
[2021-02-18] MEDS ORDERED: LEVO125T41 PO (15:29)
[2021-02-18] MEDS ORDERED: FLUO5OI TOP (15:29)
[2021-02-18] MEDS ORDERED: REFR0.5D8 OU (15:29)
[2021-02-18] MEDS ORDERED: FAMO40TA3 PO (15:29)
[2021-02-18] MEDS ORDERED: D31000TA2 PO (15:29)
[2021-02-18] MEDS ORDERED: INSUDET SC (15:29)
[2021-02-18] MEDS ORDERED: VITMTA PO (15:29)
[2021-02-18] MEDS ORDERED: TORS20TA2 PO (15:29)
[2021-02-18] MEDS ORDERED: POTA540T PO (15:29)
[2021-02-18] MEDS ORDERED: ASPI81TA27 PO (15:29)
[2021-02-18] MEDS ORDERED: INSUHUMDS SC (15:29)
[2021-02-18] MEDS ORDERED: HOME MED LIST COMPLETE! XX SCH (15:30)
[2021-02-18] MEDS ORDERED: predniSONE 20 MG TAB PO ONE (15:50)
[2021-02-18] MEDS ORDERED: VANCOMYCIN HCL 1,000 MG, VIAL MATE ADAPTER 1 EACH in NS 250 ML IV SCH (15:50)
[2021-02-18] MEDS ORDERED: SODIUM BICARBONATE 8.4% INJ 50 ML SYRINGE IV ONE (16:00)
[2021-02-18] MEDS: IPRATROPIUM 0.5MG/ALBUTEROL 2.5MG INH SOL UD 3ML (DUONEB) INH SCH ×2 (16:05→20:00)
[2021-02-18] MEDS ORDERED: SOD POLYSTYRENE SULFONATE SUSP 15 GM/60 ML UD PO ONE ×2 (16:15→20:00)
[2021-02-18 16:51] LABS: HEMOGLOBIN A1c 8.2 %
[2021-02-18 17:12] LABS: CALCIUM LEVEL 8.5 MG/DL (8.8-10.2); CREATININE FOR GFR 4.74 MG/DL (0.70-1.30); GLOMERULAR FILTRATION RATE 12.9 (>42); MAGNESIUM LEVEL 2.4 MG/DL (1.8-2.4); POTASSIUM SERUM 6.9 MEQ/L (3.5-5.1)
[2021-02-18] MEDS ORDERED: CONRAY-60 60% 50ML VIAL (Q9961) As Ordered ONE (18:01)
[2021-02-18] MEDS ORDERED: LIDOCAINE 2% 5ML JELLY UROJET As Ordered ONE (18:19)
[2021-02-18] MEDS ORDERED: propofoL 200 MG/20 ML VIAL As Ordered ONE (19:07)
[2021-02-18] MEDS ORDERED: LIDOCAINE 2% 100MG/5ML SDV (FOR ANES.) As Ordered ONE (19:07)
[2021-02-18] MEDS ORDERED: KETAMINE HCL 200 MG/20 ML VIAL As Ordered ONE (19:07)
[2021-02-18] MEDS ORDERED: MIDAZOLAM INJ 2MG/2ML VIAL (J2250 PER 1MG) As Ordered ONE (19:08)
[2021-02-18] MEDS ORDERED: PIPERACILLIN/TAZOBACTAM SOD 4.5 GM in D5W MINI-BAG PLUS 50 ML IV SCH (20:00)
[2021-02-18] MEDS: SYMBICORT 160/4.5MCG INHALER 6GM INH SCH (20:00)
[2021-02-18 20:21] LABS: CALCIUM LEVEL 8.6 MG/DL (8.8-10.2); CREATININE FOR GFR 4.68 MG/DL (0.70-1.30); GLOMERULAR FILTRATION RATE 13.1 (>42); POTASSIUM SERUM 5.8 MEQ/L (3.5-5.1)
[2021-02-18] MEDS ORDERED: FERROUS SULFATE 325MG TAB PO SCH (21:00)
[2021-02-18] MEDS: SENOKOT S TAB PO SCH ×2 (21:00→23:27)
[2021-02-18] MEDS ORDERED: VANCOMYCIN INTERMITTENT/PULSE DOSING BY CLINICAL PHARMACIST PER DOSING PROTOCOL XX SCH (21:00)
[2021-02-18] MEDS ORDERED: VANCOMYCIN HCL 1,000 MG, VIAL MATE ADAPTER 1 EACH in NS 250 ML IV ONE ×2 (21:00→22:00)
[2021-02-18] MEDS: HEPARIN SOD (PORCINE) 5000UNITS/ML 1ML VIAL/SYRINGE SC SCH (22:13)
[2021-02-18] MEDS: PIPERACILLIN/TAZOBACTAM SOD 4.5 GM in D5W MINI-BAG PLUS 50 ML IV SCH (22:13)
[2021-02-18] MEDS: NS 1,000 ML IV SCH (22:14)
[2021-02-18 22:57] LABS: CALCIUM LEVEL 7.8 MG/DL (8.8-10.2); CREATININE FOR GFR 4.25 MG/DL (0.70-1.30); GLOMERULAR FILTRATION RATE 14.6 (>42); PHOSPHORUS LEVEL 6.1 MG/DL (2.5-4.9); POTASSIUM SERUM 5.7 MEQ/L (3.5-5.1)
[2021-02-18] MEDS: FAMOTIDINE 20 MG TAB PO SCH (23:27)
[2021-02-18] MEDS: FOLIC ACID 1 MG TAB PO SCH (23:27)
[2021-02-18] MEDS: LEVEMIR (INSULIN DETEMIR) 1 UNITS/0.01ML SC SCH (23:28)
[2021-02-19] VITALS (11 sets, daily range): BP systolic 112–148; BP diastolic 53–63
[2021-02-19] MEDS: IPRATROPIUM 0.5MG/ALBUTEROL 2.5MG INH SOL UD 3ML (DUONEB) INH SCH ×6 (04:00→20:20)
[2021-02-19 04:22] LABS: HEMATOCRIT 30.5 % (42.0-52.0); HEMOGLOBIN 9.4 g/dl (13.5-17.5); MEAN CORPUSCULAR HEMOGLOBIN 26.8 pg (27.0-33.0); MEAN CORPUSCULAR HGB CONC 30.8 g/dl (32.0-36.5); MEAN CORPUSCULAR VOLUME 86.9 fl (80.0-96.0); PLATELET COUNT, AUTOMATED 252 10^3/uL (150-450); RED BLOOD COUNT 3.51 10^6/uL (4.30-6.10)
[2021-02-19] MEDS ORDERED: GLUCOSE 4GM CHEW TABLET PO PRN (04:30)
[2021-02-19] MEDS ORDERED: DEXTROSE 50% 50 ML SYRINGE IV PRN (04:30)
[2021-02-19] MEDS ORDERED: GLUCAGON INJ 1MG VIAL SC PRN (04:30)
[2021-02-19 04:44] LABS: ALBUMIN 1.9 GM/DL (3.2-5.2); BILIRUBIN,TOTAL 0.3 MG/DL (0.2-1.0); CALCIUM LEVEL 7.8 MG/DL (8.8-10.2); CREATININE FOR GFR 3.69 MG/DL (0.70-1.30); GLOMERULAR FILTRATION RATE 17.2 (>42); MAGNESIUM LEVEL 2.4 MG/DL (1.8-2.4); POTASSIUM SERUM 4.8 MEQ/L (3.5-5.1); TOTAL PROTEIN 6.5 GM/DL (6.4-8.2); VANCOMYCIN RANDOM 18.7 UG/ML
[2021-02-19] MEDS: HEPARIN SOD (PORCINE) 5000UNITS/ML 1ML VIAL/SYRINGE SC SCH ×3 (05:41→21:27)
[2021-02-19] MEDS: LEVOTHYROXINE 150MCG TABLET (0.15MG) PO SCH (05:41)
[2021-02-19] MEDS ORDERED: VANCOMYCIN HCL 1,000 MG, VIAL MATE ADAPTER 1 EACH in NS 250 ML IV ONE (06:00)
[2021-02-19] MEDS: SYMBICORT 160/4.5MCG INHALER 6GM INH SCH ×2 (07:39→20:00)
[2021-02-19 08:31] LABS: BLOOD UREA NITROGEN 64 MG/DL (7-18); CALCIUM LEVEL 7.9 MG/DL (8.8-10.2); CARBON DIOXIDE LEVEL 31 MEQ/L (21-32); CHLORIDE LEVEL 101 MEQ/L (98-107); CPK CREATINE PHOSPHOKINASE 3502 U/L (39-308); CREATININE FOR GFR 3.38 MG/DL (0.70-1.30); GLOMERULAR FILTRATION RATE 19.1 (>42); GLUCOSE, FASTING 378 MG/DL (70-100); POTASSIUM SERUM 4.6 MEQ/L (3.5-5.1); SODIUM LEVEL 138 MEQ/L (136-145)
[2021-02-19] MEDS: NYSTATIN 100,000 UNITS/GM TOPICAL PWD 15 GM TOP SCH ×2 (08:47→21:29)
[2021-02-19] MEDS: predniSONE 20 MG TAB PO SCH (08:47)
[2021-02-19] MEDS: HumaLOG INSULIN (NovoLOG) PER UNIT SC SCH ×4 (08:48→21:42)
[2021-02-19] MEDS: LEVEMIR (INSULIN DETEMIR) 1 UNITS/0.01ML SC SCH ×2 (08:51→21:28)
[2021-02-19] MEDS: ASPIRIN 81MG ENTERIC TABLET PO SCH (08:51)
[2021-02-19] MEDS: atenoloL 50 MG TAB PO SCH (08:51)
[2021-02-19] MEDS ORDERED: allopurinoL 300 MG TAB PO SCH (09:00)
[2021-02-19] MEDS: PIPERACILLIN/TAZOBACTAM SOD 4.5 GM in D5W MINI-BAG PLUS 50 ML IV SCH ×2 (11:09→21:27)
[2021-02-19] MEDS: NS 1,000 ML IV SCH (11:09)
[2021-02-19 11:39] LABS: IRON (FE) 15 UG/DL (65-175); PERCENT SATURATION 10.3 % (19.7-50.0); TOTAL IRON BINDING CAPACITY 146 UG/DL (250-450)
[2021-02-19 11:53] LABS: VITAMIN B12 LEVEL 815 PG/ML (247-911)
[2021-02-19 11:54] LABS: FOLATE > 24.0 NG/ML (>5.4)
[2021-02-19 13:15] LABS: BLOOD UREA NITROGEN 68 MG/DL (7-18); CALCIUM LEVEL 7.9 MG/DL (8.8-10.2); CARBON DIOXIDE LEVEL 32 MEQ/L (21-32); CHLORIDE LEVEL 101 MEQ/L (98-107); CREATININE FOR GFR 3.14 MG/DL (0.70-1.30); GLOMERULAR FILTRATION RATE 20.8 (>42); GLUCOSE, FASTING 468 MG/DL (70-100); POTASSIUM SERUM 4.6 MEQ/L (3.5-5.1); SODIUM LEVEL 139 MEQ/L (136-145); TOTAL PROTEIN 6.4 GM/DL (6.4-8.2)
[2021-02-19] MEDS: SENOKOT S TAB PO SCH (21:28)
[2021-02-19] MEDS: FOLIC ACID 1 MG TAB PO SCH (21:28)
[2021-02-19] MEDS: FAMOTIDINE 20 MG TAB PO SCH (21:28)
[2021-02-20] VITALS: BP 125/57
[2021-02-20 04:00] VITALS: BP 148/67
[2021-02-20] MEDS: IPRATROPIUM 0.5MG/ALBUTEROL 2.5MG INH SOL UD 3ML (DUONEB) INH SCH ×6 (04:00→19:46)
[2021-02-20] MEDS: LEVOTHYROXINE 150MCG TABLET (0.15MG) PO SCH (06:38)
[2021-02-20] MEDS: HEPARIN SOD (PORCINE) 5000UNITS/ML 1ML VIAL/SYRINGE SC SCH ×3 (06:38→21:53)
[2021-02-20] MEDS: VANCOMYCIN HCL 750 MG, VIAL MATE ADAPTER 1 EACH in NS 250 ML IV SCH ×2 (07:02→08:11)
[2021-02-20 07:25] LABS: HEMATOCRIT 27.2 % (42.0-52.0); HEMOGLOBIN 8.5 g/dl (13.5-17.5); MEAN CORPUSCULAR HEMOGLOBIN 27.4 pg (27.0-33.0); MEAN CORPUSCULAR HGB CONC 31.3 g/dl (32.0-36.5); MEAN CORPUSCULAR VOLUME 87.7 fl (80.0-96.0); PLATELET COUNT, AUTOMATED 247 10^3/uL (150-450); WHITE BLOOD COUNT 17.5 10^3/uL (4.0-10.0)
[2021-02-20] MEDS: SYMBICORT 160/4.5MCG INHALER 6GM INH SCH ×2 (07:29→19:46)
[2021-02-20 07:44] LABS: ALBUMIN 1.8 GM/DL (3.2-5.2); CALCIUM LEVEL 7.8 MG/DL (8.8-10.2); CREATININE FOR GFR 2.04 MG/DL (0.70-1.30); GLOMERULAR FILTRATION RATE 34.2 (>42); PHOSPHORUS LEVEL 3.2 MG/DL (2.5-4.9); POTASSIUM SERUM 4.3 MEQ/L (3.5-5.1)
[2021-02-20 08:00] VITALS: BP 148/64
[2021-02-20] MEDS: predniSONE 20 MG TAB PO SCH (08:11)
[2021-02-20] MEDS: atenoloL 50 MG TAB PO SCH (08:11)
[2021-02-20] MEDS: HumaLOG INSULIN (NovoLOG) PER UNIT SC SCH ×4 (08:11→21:57)
[2021-02-20] MEDS: ASPIRIN 81MG ENTERIC TABLET PO SCH (08:11)
[2021-02-20] MEDS: LEVEMIR (INSULIN DETEMIR) 1 UNITS/0.01ML SC SCH ×2 (08:12→21:53)
[2021-02-20] MEDS: NYSTATIN 100,000 UNITS/GM TOPICAL PWD 15 GM TOP SCH ×2 (08:12→21:53)
[2021-02-20] MEDS: PIPERACILLIN/TAZOBACTAM SOD 4.5 GM in D5W MINI-BAG PLUS 50 ML IV SCH ×2 (09:48→17:16)
[2021-02-20 12:00] VITALS: BP 112/56
[2021-02-20 16:00] VITALS: BP 121/59
[2021-02-20 16:11] LABS: FREE KAPPA LIGHT CHAINS SERUM 142.5 mg/L (3.3-19.4); KAPPA/LAMBDA RATIO SERUM 2.59 (0.26-1.65)
[2021-02-20 20:00] VITALS: BP 139/63
[2021-02-20] MEDS: SENOKOT S TAB PO SCH (21:00)
[2021-02-20] MEDS: FOLIC ACID 1 MG TAB PO SCH (21:52)
[2021-02-20] MEDS: FAMOTIDINE 20 MG TAB PO SCH (21:52)
[2021-02-21] VITALS: BP 137/60
[2021-02-21] MEDS: PIPERACILLIN/TAZOBACTAM SOD 4.5 GM in D5W MINI-BAG PLUS 50 ML IV SCH ×5 (01:20→23:54)
[2021-02-21 04:00] VITALS: BP 134/63
[2021-02-21] MEDS: IPRATROPIUM 0.5MG/ALBUTEROL 2.5MG INH SOL UD 3ML (DUONEB) INH SCH ×7 (04:00→23:16)
[2021-02-21 05:38] LABS: BASO % 0.2 % (0.0-1.0); EOS % 0.2 % (0.0-3.0); HEMATOCRIT 28.8 % (42.0-52.0); HEMOGLOBIN 9.1 g/dl (13.5-17.5); LYMPH # 0.7 10^3/uL (1.5-5.0); LYMPH % 5.5 % (24.0-44.0); MEAN CORPUSCULAR HEMOGLOBIN 27.5 pg (27.0-33.0); MEAN CORPUSCULAR HGB CONC 31.6 g/dl (32.0-36.5); MONO # 0.7 10^3/uL (0.0-0.8); MONO % 5.9 % (2.0-8.0); NEUTROPHILS % 87.6 % (36.0-66.0); PLATELET COUNT, AUTOMATED 249 10^3/uL (150-450); RED BLOOD COUNT 3.31 10^6/uL (4.30-6.10); WHITE BLOOD COUNT 12.6 10^3/uL (4.0-10.0)
[2021-02-21] MEDS: LEVOTHYROXINE 150MCG TABLET (0.15MG) PO SCH (05:42)
[2021-02-21] MEDS: HEPARIN SOD (PORCINE) 5000UNITS/ML 1ML VIAL/SYRINGE SC SCH (05:43)
[2021-02-21 05:51] LABS: ALBUMIN 1.5 GM/DL (3.2-5.2); BILIRUBIN,TOTAL 0.4 MG/DL (0.2-1.0); CALCIUM LEVEL 8.4 MG/DL (8.8-10.2); CREATININE FOR GFR 1.53 MG/DL (0.70-1.30); GLOMERULAR FILTRATION RATE 47.6 (>42); POTASSIUM SERUM 4.9 MEQ/L (3.5-5.1); TOTAL PROTEIN 6.9 GM/DL (6.4-8.2)
[2021-02-21 07:27] VITALS: BP 141/65
[2021-02-21] MEDS: LEVEMIR (INSULIN DETEMIR) 1 UNITS/0.01ML SC SCH ×2 (08:08→20:12)
[2021-02-21] MEDS: HumaLOG INSULIN (NovoLOG) PER UNIT SC SCH ×4 (08:09→20:12)
[2021-02-21] MEDS: atenoloL 50 MG TAB PO SCH (08:11)
[2021-02-21] MEDS: predniSONE 20 MG TAB PO SCH (08:11)
[2021-02-21] MEDS: ASPIRIN 81MG ENTERIC TABLET PO SCH (08:12)
[2021-02-21] MEDS: SYMBICORT 160/4.5MCG INHALER 6GM INH SCH ×2 (08:31→20:16)
[2021-02-21] MEDS: NYSTATIN 100,000 UNITS/GM TOPICAL PWD 15 GM TOP SCH ×2 (09:25→20:13)
[2021-02-21 09:53] LABS: INR 1.09; PROTHROMBIN TIME 14.5 SECONDS (12.7-14.5)
[2021-02-21 16:15] VITALS: BP 128/61
[2021-02-21] MEDS: FOLIC ACID 1 MG TAB PO SCH (20:11)
[2021-02-21] MEDS: FAMOTIDINE 20 MG TAB PO SCH (20:11)
[2021-02-21] MEDS: SENOKOT S TAB PO SCH (20:11)
[2021-02-21 22:00] VITALS: BP 114/57
[2021-02-22] MEDS: IPRATROPIUM 0.5MG/ALBUTEROL 2.5MG INH SOL UD 3ML (DUONEB) INH SCH ×5 (03:45→20:03)
[2021-02-22] MEDS: PIPERACILLIN/TAZOBACTAM SOD 4.5 GM in D5W MINI-BAG PLUS 50 ML IV SCH (05:36)
[2021-02-22] MEDS: LEVOTHYROXINE 150MCG TABLET (0.15MG) PO SCH (05:36)
[2021-02-22 06:00] VITALS: BP 137/57
[2021-02-22 06:10] LABS: BASO % 0.1 % (0.0-1.0); EOS % 0.3 % (0.0-3.0); HEMATOCRIT 28.8 % (42.0-52.0); HEMOGLOBIN 8.7 g/dl (13.5-17.5); LYMPH # 0.8 10^3/uL (1.5-5.0); LYMPH % 6.1 % (24.0-44.0); MEAN CORPUSCULAR HEMOGLOBIN 26.2 pg (27.0-33.0); MEAN CORPUSCULAR HGB CONC 30.2 g/dl (32.0-36.5); MEAN CORPUSCULAR VOLUME 86.7 fl (80.0-96.0); MONO # 0.9 10^3/uL (0.0-0.8); MONO % 7.3 % (2.0-8.0); NEUTROPHILS # 10.4 10^3/uL (1.5-8.5); NEUTROPHILS % 85.1 % (36.0-66.0); PLATELET COUNT, AUTOMATED 238 10^3/uL (150-450); RED BLOOD COUNT 3.32 10^6/uL (4.30-6.10); WHITE BLOOD COUNT 12.3 10^3/uL (4.0-10.0)
[2021-02-22 06:21] LABS: INR 1.18; PROTHROMBIN TIME 15.4 SECONDS (12.7-14.5)
[2021-02-22 06:35] LABS: ALBUMIN 1.7 GM/DL (3.2-5.2); BILIRUBIN,TOTAL 0.4 MG/DL (0.2-1.0); CALCIUM LEVEL 8.4 MG/DL (8.8-10.2); CREATININE FOR GFR 1.27 MG/DL (0.70-1.30); MAGNESIUM LEVEL 1.8 MG/DL (1.8-2.4); POTASSIUM SERUM 4.3 MEQ/L (3.5-5.1)
[2021-02-22] MEDS: HumaLOG INSULIN (NovoLOG) PER UNIT SC SCH ×4 (07:23→21:00)
[2021-02-22] MEDS: SYMBICORT 160/4.5MCG INHALER 6GM INH SCH ×2 (07:47→20:03)
[2021-02-22] MEDS: predniSONE 20 MG TAB PO SCH (08:52)
[2021-02-22] MEDS: LevoFLOXacin 750 MG TABLET PO SCH (08:52)
[2021-02-22] MEDS: ASPIRIN 81MG ENTERIC TABLET PO SCH (08:52)
[2021-02-22] MEDS: NYSTATIN 100,000 UNITS/GM TOPICAL PWD 15 GM TOP SCH ×2 (08:53→21:30)
[2021-02-22] MEDS: traMADol 50 MG TAB PO PRN (08:53)
[2021-02-22] MEDS: atenoloL 50 MG TAB PO SCH (08:54)
[2021-02-22] MEDS ORDERED: LEVEMIR (INSULIN DETEMIR) 1 UNITS/0.01ML SC ONE (09:00)
[2021-02-22] MEDS: LEVEMIR (INSULIN DETEMIR) 1 UNITS/0.01ML SC SCH ×2 (09:00→21:00)
[2021-02-22] MEDS ORDERED: LIDOCAINE 1% MDV 20ML VIAL As Ordered ONE (11:57)
[2021-02-22 13:30] VITALS: BP 136/55
[2021-02-22] MEDS: HEPARIN SOD (PORCINE) 5000UNITS/ML 1ML VIAL/SYRINGE SC SCH ×2 (13:52→21:28)
[2021-02-22 21:15] VITALS: BP 135/57
[2021-02-22] MEDS: FAMOTIDINE 20 MG TAB PO SCH (21:28)
[2021-02-22] MEDS: FOLIC ACID 1 MG TAB PO SCH (21:28)
[2021-02-22] MEDS: SENOKOT S TAB PO SCH (21:29)
[2021-02-23] MEDS: traMADol 50 MG TAB PO PRN ×2 (00:47→09:27)
[2021-02-23] MEDS: IPRATROPIUM 0.5MG/ALBUTEROL 2.5MG INH SOL UD 3ML (DUONEB) INH SCH ×7 (04:00→23:37)
[2021-02-23 06:00] VITALS: BP 126/57
[2021-02-23] MEDS: LevoFLOXacin 750 MG TABLET PO SCH (06:02)
[2021-02-23] MEDS: HEPARIN SOD (PORCINE) 5000UNITS/ML 1ML VIAL/SYRINGE SC SCH ×3 (06:02→21:29)
[2021-02-23] MEDS: LEVOTHYROXINE 150MCG TABLET (0.15MG) PO SCH (06:03)
[2021-02-23 06:35] LABS: BASO % 0.3 % (0.0-1.0); EOS % 0.3 % (0.0-3.0); HEMATOCRIT 31.9 % (42.0-52.0); HEMOGLOBIN 9.6 g/dl (13.5-17.5); LYMPH # 0.7 10^3/uL (1.5-5.0); LYMPH % 4.8 % (24.0-44.0); MEAN CORPUSCULAR HEMOGLOBIN 26.7 pg (27.0-33.0); MEAN CORPUSCULAR HGB CONC 30.1 g/dl (32.0-36.5); MEAN CORPUSCULAR VOLUME 88.9 fl (80.0-96.0); MONO % 7.2 % (2.0-8.0); NEUTROPHILS # 11.9 10^3/uL (1.5-8.5); NEUTROPHILS % 85.7 % (36.0-66.0); PLATELET COUNT, AUTOMATED 281 10^3/uL (150-450); RED BLOOD COUNT 3.59 10^6/uL (4.30-6.10); WHITE BLOOD COUNT 13.9 10^3/uL (4.0-10.0)
[2021-02-23 06:58] LABS: ALBUMIN 1.8 GM/DL (3.2-5.2); ALT/SGPT 68 U/L (12-78); BILIRUBIN,TOTAL 0.4 MG/DL (0.2-1.0); BLOOD UREA NITROGEN 29 MG/DL (7-18); CALCIUM LEVEL 8.7 MG/DL (8.8-10.2); CARBON DIOXIDE LEVEL 36 MEQ/L (21-32); CHLORIDE LEVEL 105 MEQ/L (98-107); CREATININE FOR GFR 1.04 MG/DL (0.70-1.30); GLOMERULAR FILTRATION RATE > 60.0 (>42); GLUCOSE, FASTING 114 MG/DL (70-100); MAGNESIUM LEVEL 1.8 MG/DL (1.8-2.4); POTASSIUM SERUM 4.7 MEQ/L (3.5-5.1); SODIUM LEVEL 146 MEQ/L (136-145); TOTAL PROTEIN 6.3 GM/DL (6.4-8.2)
[2021-02-23] MEDS: HumaLOG INSULIN (NovoLOG) PER UNIT SC SCH ×4 (07:30→21:00)
[2021-02-23] MEDS: SYMBICORT 160/4.5MCG INHALER 6GM INH SCH ×2 (08:00→20:17)
[2021-02-23] MEDS: predniSONE 20 MG TAB PO SCH (09:25)
[2021-02-23] MEDS: ASPIRIN 81MG ENTERIC TABLET PO SCH (09:26)
[2021-02-23] MEDS: atenoloL 50 MG TAB PO SCH (09:26)
[2021-02-23] MEDS: NYSTATIN 100,000 UNITS/GM TOPICAL PWD 15 GM TOP SCH ×2 (09:26→21:31)
[2021-02-23] MEDS: TAMSULOSIN 0.4 MG CAP PO SCH (09:59)
[2021-02-23] MEDS: LEVEMIR (INSULIN DETEMIR) 1 UNITS/0.01ML SC SCH ×2 (10:00→21:30)
[2021-02-23 11:54] LABS: ALBUMIN 2.21 GM/DL (3.29-5.55); ALBUMIN % 34.6 % (55.8-66.1); ALPHA-1-GLOBULIN % 9.5 % (2.9-4.9); ALPHA-1-GLOBULINS 0.61 GM/DL (0.17-0.41); ALPHA-2-GLOBULINS 1.14 GM/DL (0.42-0.99); ALPHA-2-GLOBULINS % 17.8 % (7.1-11.8); BETA-1-GLOBULINS % 4.9 % (4.7-7.2); BETA-2-GLOBULINS % 4.7 % (3.2-6.5); GAMMA GLOBULIN % 28.5 % (11.1-18.8); GAMMA GLOBULINS 1.82 GM/DL (0.65-1.58)
[2021-02-23 12:22] LABS: BETA-1-GLOBULINS 0.31 GM/DL (0.28-0.60)
[2021-02-23 14:00] VITALS: BP 147/68
[2021-02-23] MEDS: ACETAMINOPHEN TAB 650MG DOSE (2X325MG) PO PRN (21:30)
[2021-02-23] MEDS: SENOKOT S TAB PO SCH (21:31)
[2021-02-23] MEDS: FAMOTIDINE 20 MG TAB PO SCH (21:31)
[2021-02-23] MEDS: FOLIC ACID 1 MG TAB PO SCH (21:31)
[2021-02-24] MEDS: IPRATROPIUM 0.5MG/ALBUTEROL 2.5MG INH SOL UD 3ML (DUONEB) INH SCH ×3 (04:00→11:31)
[2021-02-24] MEDS: ACETAMINOPHEN TAB 650MG DOSE (2X325MG) PO PRN (05:27)
[2021-02-24] MEDS: HEPARIN SOD (PORCINE) 5000UNITS/ML 1ML VIAL/SYRINGE SC SCH (05:27)
[2021-02-24] MEDS: LevoFLOXacin 750 MG TABLET PO SCH (05:27)
[2021-02-24] MEDS: LEVOTHYROXINE 150MCG TABLET (0.15MG) PO SCH (05:27)
[2021-02-24 06:00] VITALS: BP 143/59
[2021-02-24 06:08] LABS: FREE KAPPA LIGHT CHAINS URINE 71.25 mg/L (0.63-113.79); FREE LAMBDA LIGHT CHAINS URINE 22.92 mg/L (0.47-11.77); KAPPA/LAMBDA RATIO URINE 3.11 (1.03-31.76)
[2021-02-24 06:49] LABS: BASO % 0.2 % (0.0-1.0); EOS # 0.1 10^3/uL (0.0-0.5); EOS % 0.6 % (0.0-3.0); HEMATOCRIT 31.3 % (42.0-52.0); HEMOGLOBIN 9.5 g/dl (13.5-17.5); LYMPH # 0.7 10^3/uL (1.5-5.0); LYMPH % 5.4 % (24.0-44.0); MEAN CORPUSCULAR HEMOGLOBIN 26.8 pg (27.0-33.0); MEAN CORPUSCULAR HGB CONC 30.4 g/dl (32.0-36.5); MEAN CORPUSCULAR VOLUME 88.2 fl (80.0-96.0); MONO % 7.6 % (2.0-8.0); NEUTROPHILS # 11.3 10^3/uL (1.5-8.5); NEUTROPHILS % 84.1 % (36.0-66.0); PLATELET COUNT, AUTOMATED 266 10^3/uL (150-450); RED BLOOD COUNT 3.55 10^6/uL (4.30-6.10); WHITE BLOOD COUNT 13.4 10^3/uL (4.0-10.0)
[2021-02-24 07:06] LABS: ALBUMIN 1.7 GM/DL (3.2-5.2); ALT/SGPT 57 U/L (12-78); BILIRUBIN,TOTAL 0.4 MG/DL (0.2-1.0); BLOOD UREA NITROGEN 29 MG/DL (7-18); CALCIUM LEVEL 8.8 MG/DL (8.8-10.2); CARBON DIOXIDE LEVEL 36 MEQ/L (21-32); CHLORIDE LEVEL 105 MEQ/L (98-107); CREATININE FOR GFR 0.96 MG/DL (0.70-1.30); GLOMERULAR FILTRATION RATE > 60.0 (>42); GLUCOSE, FASTING 183 MG/DL (70-100); MAGNESIUM LEVEL 1.7 MG/DL (1.8-2.4); POTASSIUM SERUM 4.6 MEQ/L (3.5-5.1); SODIUM LEVEL 143 MEQ/L (136-145); TOTAL PROTEIN 6.5 GM/DL (6.4-8.2)
[2021-02-24] MEDS: SYMBICORT 160/4.5MCG INHALER 6GM INH SCH (07:09)
[2021-02-24] MEDS: LEVEMIR (INSULIN DETEMIR) 1 UNITS/0.01ML SC SCH (07:56)
[2021-02-24] MEDS: HumaLOG INSULIN (NovoLOG) PER UNIT SC SCH ×2 (07:56→12:43)
[2021-02-24] MEDS: ASPIRIN 81MG ENTERIC TABLET PO SCH (07:56)
[2021-02-24 07:57] VITALS: BP 143/59
[2021-02-24] MEDS: TAMSULOSIN 0.4 MG CAP PO SCH (07:57)
[2021-02-24] MEDS: predniSONE 20 MG TAB PO SCH (07:57)
[2021-02-24] MEDS: atenoloL 50 MG TAB PO SCH (07:57)
[2021-02-24] MEDS: traMADol 50 MG TAB PO PRN (07:58)
[2021-02-24] MEDS ORDERED: MAGNESIUM OXIDE 400MG TAB (MAG-OX) PO ONE (08:00)
[2021-02-24] MEDS: NYSTATIN 100,000 UNITS/GM TOPICAL PWD 15 GM TOP SCH (10:44)
[2021-02-24 11:35] LABS: RSV AMPLIFICATION NEGATIVE (NEGATIVE)
[2021-02-24] MEDS ORDERED: LEVO750T13 PO (11:58)
[2021-02-24 14:12] LABS: BODY FLUID CULTURE Not indicated. (.); ORGANISM ID Not indicated. (.); SPECIMEN SOURCE Urine (.); URINE STREP PNEUMONIAE ANTIGEN Negative (Negative)
== END 2021-02-24 14:45 | DRG 853 ==
LOC: M ED 11:26 → EDBD 11:26 → M ED INP 15:19 → ENRESERV 15:55 → M ICU 20:45 → M PCU 02-19 18:38 → M MS5PR 02-21 16:03
PROVIDERS: ADMIT Internal Medicine; ATTEND Family Medicine
PROC: 0T788DZ Dilation of Bilateral Ureters with Intraluminal Device, Via Natural or Artificial Opening Endoscopic (ICD-10-PCS; principal; 2021-02-18 17:31)
PROC: 07DR3ZX Extraction of Iliac Bone Marrow, Percutaneous Approach, Diagnostic (ICD-10-PCS; 2021-02-22)
DX: A41.59 Other Gram-negative sepsis (principal); I50.33 Acute on chronic diastolic (congestive) heart failure; J18.9 Pneumonia, unspecified organism; N17.9 Acute kidney failure, unspecified; M62.82 Rhabdomyolysis; J96.11 Chronic respiratory failure with hypoxia; I13.0 Hypertensive heart and chronic kidney disease with heart failure and stage 1 through stage 4 chronic kidney disease, or unspecified chronic kidney disease; N13.6 Pyonephrosis; E87.1 Hypo-osmolality and hyponatremia; C79.51 Secondary malignant neoplasm of bone; Z68.42 Body mass index [BMI] 45.0-49.9, adult; E87.5 Hyperkalemia; J44.9 Chronic obstructive pulmonary disease, unspecified; Z99.81 Dependence on supplemental oxygen; E03.9 Hypothyroidism, unspecified; G47.33 Obstructive sleep apnea (adult) (pediatric); E21.0 Primary hyperparathyroidism; E66.01 Morbid (severe) obesity due to excess calories; M10.9 Gout, unspecified; L40.9 Psoriasis, unspecified; D47.2 Monoclonal gammopathy; D63.1 Anemia in chronic kidney disease; I27.29 Other secondary pulmonary hypertension; N18.30 Chronic kidney disease, stage 3 unspecified; E11.22 Type 2 diabetes mellitus with diabetic chronic kidney disease; Z85.038 Personal history of other malignant neoplasm of large intestine; Z90.49 Acquired absence of other specified parts of digestive tract; Z20.822 Contact with and (suspected) exposure to COVID-19; Z88.5 Allergy status to narcotic agent; Z79.4 Long term (current) use of insulin; Z79.82 Long term (current) use of aspirin; Z79.1 Long term (current) use of non-steroidal anti-inflammatories (NSAID); Z79.899 Other long term (current) drug therapy